=== PATIENT | female | born 1940 | race Caucasian/White ===

== ENCOUNTER 2021-04-18 11:14 | Inpatient (IN) ==
[~2021-04-18 11:14] MED LIST: ALBUMIN HUMAN 25 GM/100 ML BAG IV ONE; DEXAMETHASONE 10 MG/ML VIAL ONE; HYDROmorphone 1 MG/ML SYRINGE ONE; KETAMINE 50 MG/ML Syringe (ANEST) IV ONE; LIDOCAINE HCL/PF 100 MG/5 ML SYRINGE IV ONE; MAGNESIUM SULFATE 2 GM/50 ML BAG IV ONE; ONDANSETRON 4 MG/2 ML VIAL ONE; PROPOFOL 200 MG/20 ML VIAL IV ONE; ROCURONIUM 10 MG/ML ML IV ONE; ROPIVACAINE HCL/PF 20 ML VIAL IJ ONE; SUGAMMADEX SODIUM 200 MG/2 ML VIAL IV ONE; fentaNYL 250 MCG/5 ML VIAL IV ONE
[2021-04-18] MEDS ORDERED: IOPAMIDOL 100 ML BOTTLE IV ONE (11:15)
[2021-04-18] MEDS ORDERED: 0.9 % SODIUM CHLORIDE 1,000 ML IV ONE (11:28)
[2021-04-18] MEDS ORDERED: PANTOPRAZOLE 40 MG VIAL IV ONE (11:28)
[2021-04-18] MEDS ORDERED: ONDANSETRON 4 MG/2 ML VIAL IV ONE (11:28)
--- NOTE | 2021-04-18 11:59 | XRay Report ---
INDICATION: GI BLEED TECHNIQUE: AP portable semiupright chest x-ray COMPARISON: None FINDINGS: Lungs:Lungs are negative. No focal pulmonary parenchymal infiltrate or mass Heart, vascular:No significant cardiomegaly. Pulmonary vascularity is normal. No pulmonary edema or pulmonary congestion Mediastinum, prisca:No mediastinal widening. No hilar mass Pleura:No pleural fluid. No pleural-based mass or calcification Skeletal:Negative. IMPRESSION: 1. Negative AP chest x-ray 2. No interval change since 01/21/2009 Interpreted and Authenticated by: Aniket Gates 04/18/21
[2021-04-18 12:33] LABS: POC INR 1.5 (0.8-1.2)
--- NOTE | 2021-04-18 12:38 | Emergency Department Note ---
GI Bleed HPI General Chief complaint: Bleeding Other Stated complaint: bloody emesis Time Seen by Provider: 04/18/21 11:22 Source: patient, EMS, RN notes reviewed and old records reviewed Mode of arrival: EMS Limitations: no limitations History of Present Illness HPI Narrative: Narrative: complaint: coffee ground emesis and melena Onset (ago): day(s) Consistency: intermittent Severity: moderate Improves with: none Worsens with: bowel movement Context: anticoagulant use Associated symptoms: Reports nausea, vomiting, loss of appetite, malaise, easy bruising and weakness; Denies abdominal pain, epistaxis, fever, chills, headaches, rash, other bleeding, shortness of breath and syncope Treatments Prior to Arrival: none Related Data Home Medications Medication Instructions Recorded Confirmed ibuprofen PO PRN 01/19/21 03/30/21 Previous Rx's Medication Instructions Recorded apixaban 5 mg tablet 5 mg PO BID #60 tab 03/09/21 Allergies Allergy/AdvReac Type Severity Reaction Status Date / Time No Known Drug Allergies Allergy Verified 04/18/21 11:18 Review of Systems ROS ROS Narrative: Narrative: All systems ED: reviewed and negative except as stated. PFS Narrative Patient History Narrative: Narrative: Medical/Surgical/Family History All Active Problems (Updated 04/18/21 @ 12:43 by Samuel Oneill MD) Obesity (Chronic) Psoriasis (Chronic) Seborrheic keratoses (Chronic) Left leg DVT (Acute) Elevated blood pressure reading without diagnosis of hypertension (Acute) Anemia (Acute) Hypokalemia (Acute) Acute upper gastrointestinal hemorrhage (Acute) Influenza vaccination declined (Acute) Pneumococcal vaccination declined (Acute) Medical History Anemia Edema of left lower leg Elevated blood pressure reading without diagnosis of hypertension Hypokalemia Influenza vaccination declined Knee pain Left leg DVT Medicare annual wellness visit, initial Obesity Pneumococcal vaccination declined Psoriasis Seborrheic keratoses Surgical History History of arthroscopy of knee History of hysterectomy (~1979) History of tonsillectomy Family History Other No pertinent family history Social History Smoking Status: Former smoker Alcohol Intake Frequency: does not drink Substance Use: does not use Exam Narrative Narrative: Narrative: General Limitations: no limitations General appearance: Present alert and in no apparent distress Head Head: Present atraumatic and normocephalic Eye Eye: Present normal appearance, PERRL and EOMI; Absent scleral icterus and conjunctival injection ENT ENT: Present normal exam, normal oropharynx and mucous membranes moist Neck Neck: Present trachea midline; Absent lymphadenopathy and thyromegaly Chest Chest: Present symmetric chest wall rise Respiratory Respiratory: Present normal lung sounds bilaterally; Absent respiratory distress, wheezes, stridor, accessory muscle use and prolonged expiratory phase Cardiovascular Cardiovascular: Present normal rhythm, tachycardia and systolic murmur; Absent diastolic murmur Adbominal Abdominal: Present soft; Absent distention, tenderness, guarding, rebound, rigidity, organomegaly and mass Rectal Rectal: Present heme (+) stool and black stool Extremities Extremities: Present normal inspection; Absent normal capillary refill, pedal edema, pretibial edema and calf tenderness Back Back: Present normal inspection and full ROM; Absent CVA tenderness (R), CVA tenderness (L) and spinous process tenderness Neurological Neurological: Present alert and oriented X3 Psychiatric Psychiatric: Present normal affect and normal mood Skin Skin: Present warm (WNL) and dry Course Vital Signs Vital signs: Vital Signs Temperature 97.3 F 04/18/21 11:15 Pulse Rate 120 H 04/18/21 11:15 Respiratory Rate 16 04/18/21 11:15 Blood Pressure 102/89 04/18/21 11:15 Pulse Oximetry (%) 94 04/18/21 11:15 Temperature 97.3 F 04/18/21 11:15 Pulse Rate 101 H 04/18/21 14:20 Respiratory Rate 18 04/18/21 14:20 Blood Pressure 110/68 04/18/21 14:01 Pulse Oximetry (%) 93 04/18/21 14:20 [facility] MDM Narrative Medical decision making narrative: Narrative: Consulted Dr. Phipps who graciously agreed to evaluate patient in the emergency department Dr. Gilbert graciously agreed to admit patient patient was typed and screened for additional blood if needed currently she is 9 and 29 transfusion criteria is white count is 23.2. This may be a shift to the bleed BUN is 42 to a creatinine of 1 I believe this is more digested blood than dehydration patient has received 2 L of IV normal saline and is maintaining blood pressures in the low 100s in the high systolic and heart rate in the low 100. Differential Diagnosis Differential Diagnosis: Upper GI bleed lower GI bleed Medical Records Medical records reviewed: Yes I reviewed the patient's medical records. Lab Data Result diagrams: 04/18/21 12:10 04/18/21 12:10 Labs: Lab Results 04/18/21 04/18/21 04/18/21 Range/Units 12:10 12:10 12:10 WBC 23.2 H (4.5-11.0) K/mcL RBC 3.58 L (3.59-5.38) M/mcL Hgb 9.2 L (11.2-15.7) g/dL Hct 29.4 L (34.1-44.9) % MCV 82.1 (80.0-100.0) fL MCH 25.7 L (26.0-34.0) pg MCHC 31.3 (31.0-36.0) g/dL RDW 14.4 (11.5-14.5) % Plt Count 393 (140-440) K/mcL MPV 9.9 (7.4-10.4) fL Neut % (Auto) 94.7 H (38.0-78.0) % Lymph % (Auto) 1.3 L (15.5-49.0) % [place] % (Auto) 3.9 (1.0-12.0) % Eos % (Auto) 0 (0.0-7.0) % Baso % (Auto) 0.1 (0.0-2.0) % Lymph # (Auto) 0.30 L (1.50-4.80) K/mcL [place] # (Auto) 0.90 (0.10-0.90) K/mcL Eos # (Auto) 0 (0.00-0.70) K/mcL Baso # (Auto) 0.03 (0.00-0.30) K/mcL Absolute Neutrophils 21.97 H (1.80-8.00) K/mcL POC PT 18.0 H (11.9-14.5) sec POC INR 1.5 H (0.8-1.2) APTT 30.8 (20.0-37.0) sec VBG Lactic Acid (0.5-2.0) mmol/L Sodium 139 (133-145) mmol/L Potassium 3.9 (3.3-5.1) mmol/L Chloride 104 (96-108) mmol/L Carbon Dioxide 18 L (22-30) mmol/L Anion Gap 17.0 H (8.0-16.0) BUN 42 H (8-23) mg/dL Creatinine 1.0 (0.6-1.1) mg/dL POC Creatinine 1.0 (0.6-1.2) mg/dL GFR Calculation 52 Glucose 191 H (70-105) mg/dL Calcium 8.8 (8.6-10.4) mg/dL Total Bilirubin 0.3 (0.1-1.0) mg/dL AST 21 (<32) U/L ALT 15 (<40) U/L Alkaline Phosphatase 91 (39-117) U/L Total Protein 6.3 (5.9-8.4) gm/dL Albumin 3.5 (3.2-5.2) gm/dL Globulin 2.8 (2.2-3.7) gm/dL Albumin/Globulin Ratio 1.3 (1.0-2.3) 04/18/21 Range/Units 12:10 WBC (4.5-11.0) K/mcL RBC (3.59-5.38) M/mcL Hgb (11.2-15.7) g/dL Hct (34.1-44.9) % MCV (80.0-100.0) fL MCH (26.0-34.0) pg MCHC (31.0-36.0) g/dL RDW (11.5-14.5) % Plt Count (140-440) K/mcL MPV (7.4-10.4) fL Neut % (Auto) (38.0-78.0) % Lymph % (Auto) (15.5-49.0) % [place] % (Auto) (1.0-12.0) % Eos % (Auto) (0.0-7.0) % Baso % (Auto) (0.0-2.0) % Lymph # (Auto) (1.50-4.80) K/mcL [place] # (Auto) (0.10-0.90) K/mcL Eos # (Auto) (0.00-0.70) K/mcL Baso # (Auto) (0.00-0.30) K/mcL Absolute Neutrophils (1.80-8.00) K/mcL POC PT (11.9-14.5) sec POC INR (0.8-1.2) APTT (20.0-37.0) sec VBG Lactic Acid 3.8 H (0.5-2.0) mmol/L Sodium (133-145) mmol/L Potassium (3.3-5.1) mmol/L Chloride (96-108) mmol/L Carbon Dioxide (22-30) mmol/L Anion Gap (8.0-16.0) BUN (8-23) mg/dL Creatinine (0.6-1.1) mg/dL POC Creatinine (0.6-1.2) mg/dL GFR Calculation Glucose (70-105) mg/dL Calcium (8.6-10.4) mg/dL Total Bilirubin (0.1-1.0) mg/dL AST (<32) U/L ALT (<40) U/L Alkaline Phosphatase (39-117) U/L Total Protein (5.9-8.4) gm/dL Albumin (3.2-5.2) gm/dL Globulin (2.2-3.7) gm/dL Albumin/Globulin Ratio (1.0-2.3) ED POC Tests ED POC Tests: VEE - SARS Antigen Negative Radiology Data Radiology results reviewed: Yes I reviewed the patient's radiology results. Radiology results narrative: Chest x-ray NAD EKG Data EKG #1: EKG attestation: Yes I reviewed and interpreted this EKG. Rate: tachycardia [place]/QRS: left axis deviation Voltage: c/w LVH Ectopy: PVC Interpretation: nonspecific ST-T wave changes Pulse Oximetry Data Pulse Ox %: 94 Interpretation: 94% on room air within normal limits CC TIME Critical Care Time Critical Care Time: Yes Total Critical Care Time: 45 Attestation: Approximately [45] minutes of critical care time was used in order to assess and manage the high probability of imminent or life threatening deterioration to [critical care for GI bleed patient with lowering H&H continued GI bleed elevated BUN with low blood pressure and high heart rate.] which required my highest level of preparedness and interventions with frequent patient assessments. This time is excluding time spent on separately billable procedures. Discharge Plan Patient/Caregiver Discharge Instructions Pt seen by BIOLOGICAL CHEMIST/PA only: No Clinical Impression: Acute upper gastrointestinal hemorrhage Patient Disposition: Xfer As Inpt ([facility]) Follow up with: Brendon Brandon MD [Physician] - Adrian Celestin MD [Primary Care Provider] - Prescriptions: No Action apixaban 5 mg tablet 5 mg PO BID Qty: 60 RF: 2 ibuprofen PO PRNRF: 0
[2021-04-18 13:05] LABS: Basophils # (Auto) 0.03 K/mcL (0.00-0.30); Basophils % (Auto) 0.1 % (0.0-2.0); Eosinophils # (Auto) 0 K/mcL (0.00-0.70); Eosinophils % (Auto) 0 % (0.0-7.0); Hematocrit 29.4 % (34.1-44.9); Hemoglobin 9.2 g/dL (11.2-15.7); Lymphocytes % (Auto) 1.3 % (15.5-49.0); Mean Cell Volume 82.1 fL (80.0-100.0); Mean Corpuscular HGB Conc 31.3 g/dL (31.0-36.0); Mean Platelet Volume 9.9 fL (7.4-10.4); Monocytes % (Auto) 3.9 % (1.0-12.0); Neutrophils % (Auto) 94.7 % (38.0-78.0); Platelet Count 393 K/mcL (140-440); RBC 3.58 M/mcL (3.59-5.38); Red Cell Distribution Width 14.4 % (11.5-14.5); WBC 23.2 K/mcL (4.5-11.0)
[2021-04-18 13:16] LABS: Partial Thromboplastin Time 30.8 sec (20.0-37.0)
--- NOTE | 2021-04-18 13:18 | Cat Scan Report ---
INDICATION: Diffuse Abd pain with GI bleed COMPARISON: None. TECHNIQUE: Axial images were obtained through the abdomen and pelvis. Sagittally and coronally reformatted images. 80 mL Isovue 370 injected intravenously. Oral contrast material was not administered FINDINGS: . There is a small hiatal hernia Lung bases:Negative. No pulmonary parenchymal nodule. No pleural fluid or pericardial fluid Liver:Negative. No focal intrahepatic mass. No focal abnormality. Liver contour is smooth. No evidence for cirrhosis Gallbladder, bilary:There are calcified gallstones. No gallbladder wall thickening or pericholecystic fluid. No dilated bile ducts Spleen:No splenomegaly. Normal enhancement of splenic and portal veins. Pancreas:No pancreatic mass. No peripancreatic abnormality Adrenal glands:Negative Kidneys, ureters, bladder: There are right renal cortical cysts and left renal parapelvic cysts. No solid mass. No hydronephrosis There is no hydroureter. No ureteral stone No bladder calculi or detectable mass Gastrointestinal:Small bowel is fluid-filled and dilated. Cecum and ascending colon are dilated. Small bowel measures approximately 2.5 cm in cross-sectional diameter. The cecum measures approximately 10 cm in diameter. There is a mass at the hepatic flexure of the colon. Mass measures approximately 7.1 x 5.2 x 5.0 cm. It is not clearly separable from the anterior abdominal wall and appearance suggests invasion of the anterior abdominal wall, to the right of midline. This mass is consistent with primary colonic neoplasm and causes obstruction. There are small lymph nodes adjacent to this mass. These are not pathologically enlarged but may be positive. Appendix: The appendix is not well visualized. No evidence for appendicitis Vascular:Abdominal aorta is calcified. There is no abdominal aortic aneurysm. There is calcification of the origins of the celiac trunk and superior mesenteric artery. Lymphatic:No retroperitoneal adenopathy. No pelvic or inguinal adenopathy. Mesentery, peritoneum: There is mild ascitic fluid. This is perihepatic Reproductive:Uterus is not visualized. Uterus may be atrophic or removed. No adnexal mass Musculoskeletal:No lumbar compression fractures. Sacrum and pelvis are negative. No hip fracture. No abdominal wall or inguinal hernia IMPRESSION: 1. 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 This is at the hepatic flexure. 2. Possible direct invasion of the anterior abdominal wall 3. Mechanical obstruction with dilated ascending colon and small bowel 4. Small amount of ascitic fluid 5. Atherosclerotic disease. No abdominal aortic aneurysm 6. Cholelithiasis 7. Benign renal cysts The exam was performed using radiation dose optimization techniques including, but not limited to, automated exposure control, adjustment of the mA and/or kV according to patient size and use of iterative reconstruction technique. Interpreted and Authenticated by: Aniket Gates 04/18/21
[2021-04-18] MEDS ORDERED: ACETAMINOPHEN 650 MG/65 ML BAG IV ONE (13:22)
[2021-04-18 13:38] LABS: ALT/SGPT 15 U/L (<40); AST/SGOT 21 U/L (<32); Albumin 3.5 gm/dL (3.2-5.2); Albumin/Globulin Ratio 1.3 (1.0-2.3); Alkaline Phosphatase 91 U/L (39-117); Bilirubin,Total 0.3 mg/dL (0.1-1.0); Blood Urea Nitrogen 42 mg/dL (8-23); Calcium 8.8 mg/dL (8.6-10.4); Carbon Dioxide 18 mmol/L (22-30); Chloride 104 mmol/L (96-108); Globulin 2.8 gm/dL (2.2-3.7); Glomerular Filtration Rate 52; Glucose 191 mg/dL (70-105)
[2021-04-18] MEDS ORDERED: 0.9 % SODIUM CHLORIDE 1,000 ML IV SCH (14:15)
--- NOTE | 2021-04-18 14:17 | Internal Med History&Physical ---
HPI History of Present Illness Patient information: Note initiated : 04/18/21 at 2:10 pm Service Date, if different from initiated Date: [] Patient: Hector Chadwick a 80 y/o F admitted on for bloody emesis. Chief Complaint: [] History of present illness: Ms. Chadwick is a 80 year old F Presents the ED with hematemesis. Patient has a history of DVT on Eliquis her old home medication does list ibuprofen but she says she does not take that. She woke up yesterday feeling fine and then in the afternoon she started having a little bit of an upset stomach and the pain worsened into the night and it was a sharp and burning pain nonradiating. She had an episode of nausea vomiting last night. She could not sleep very well because of the pain. This morning she had another episode nausea vomiting described as dark coffee- ground emesis. And then she had a large episode of diarrhea of dark stool. She was significantly lightheaded and when she got up to walk she almost passed out and could not walk very far because of weakness as well. Patient denies chest pain or shortness of breath In the ED she had a hemoglobin of 9 and it was 11 few weeks prior. Blood pressures have been in the 90s to low 100s she did have a systolic of 79 at one reading. She is also tachycardic 120s one-point Dr. Phipps was contacted to perform EGD. Review of Systems: Pertinent positives as above. Denies headache/fever/chills/chest pain/cough/dyspnea. Otherwise see above. PFSH PFSH All Active Problems (Updated 04/18/21 @ 12:43 by Samuel Oneill MD) Obesity (Chronic) Psoriasis (Chronic) Seborrheic keratoses (Chronic) Left leg DVT (Acute) Elevated blood pressure reading without diagnosis of hypertension (Acute) Anemia (Acute) Hypokalemia (Acute) Acute upper gastrointestinal hemorrhage (Acute) Influenza vaccination declined (Acute) Pneumococcal vaccination declined (Acute) Medical History Anemia Edema of left lower leg Elevated blood pressure reading without diagnosis of hypertension Hypokalemia Influenza vaccination declined Knee pain Left leg DVT Medicare annual wellness visit, initial Obesity Pneumococcal vaccination declined Psoriasis Seborrheic keratoses Surgical History History of arthroscopy of knee History of hysterectomy (~1979) History of tonsillectomy Family History Other No pertinent family history Social History marital status: smoking status: Former smoker quit date: 07/15/99 pack-years: 40 alcohol intake frequency: does not drink substance use type: does not use MEDS/ALLERGIES Home Medications and Allergies Home Medications Medication Instructions Recorded Confirmed Type ibuprofen PO PRN 01/19/21 03/30/21 History apixaban 5 mg tablet 5 mg PO BID #60 tab 03/09/21 03/30/21 Rx Allergies Allergy/AdvReac Type Severity Reaction Status Date / Time No Known Drug Allergies Allergy Verified 04/18/21 11:18 EXAM Constitutional Vitals: Temp Pulse Resp BP Pulse Ox 97.3 F 106 H 20 98/54 93 04/18/21 11:15 04/18/21 12:31 04/18/21 12:31 04/18/21 12:31 04/18/21 12:31 Exam: General: Alert, Awake, No acute Distress Eyes/N/T: EOMI, PERRL, Head/Neck: neck supple, normocephalic atraumatic CV: Mildly tacky but regular, No murmurs, normal s1/s2 Pulm: Clear b/l, no wheezing/rhonchi/rales Abd: soft, nontender, +BS x4 Ext: no clubbing/cyanosis/edema Neuro: Alert, no focal deficits, moves all extremities, CN 2-12 grossly intact, symmetrical strength b/l upper/lower, sensations intact b/l upper/lower Skin: warm/dry, pale DATA Data Completed and Pending Labs: Labs from last 24 hours 04/18/21 04/18/21 04/18/21 12:10 12:10 12:10 WBC RBC Hgb Hct MCV MCH MCHC RDW Plt Count MPV Neut % (Auto) Lymph % (Auto) [place] % (Auto) Eos % (Auto) Baso % (Auto) Lymph # (Auto) [place] # (Auto) Eos # (Auto) Baso # (Auto) Absolute Neutrophils POC PT 18.0 H POC INR 1.5 H APTT 30.8 VBG Lactic Acid 3.8 H Sodium 139 Potassium 3.9 Chloride 104 Carbon Dioxide 18 L Anion Gap 17.0 H BUN 42 H Creatinine 1.0 POC Creatinine 1.0 GFR Calculation 52 Glucose 191 H Calcium 8.8 Total Bilirubin 0.3 AST 21 ALT 15 Alkaline Phosphatase 91 Total Protein 6.3 Albumin 3.5 Globulin 2.8 Albumin/Globulin Ratio 1.3 04/18/21 12:10 WBC 23.2 H RBC 3.58 L Hgb 9.2 L Hct 29.4 L MCV 82.1 MCH 25.7 L MCHC 31.3 RDW 14.4 Plt Count 393 MPV 9.9 Neut % (Auto) 94.7 H Lymph % (Auto) 1.3 L [place] % (Auto) 3.9 Eos % (Auto) 0 Baso % (Auto) 0.1 Lymph # (Auto) 0.30 L [place] # (Auto) 0.90 Eos # (Auto) 0 Baso # (Auto) 0.03 Absolute Neutrophils 21.97 H POC PT POC INR APTT VBG Lactic Acid Sodium Potassium Chloride Carbon Dioxide Anion Gap BUN Creatinine POC Creatinine GFR Calculation Glucose Calcium Total Bilirubin AST ALT Alkaline Phosphatase Total Protein Albumin Globulin Albumin/Globulin Ratio A/P Narrative A/P Narrative: A: *Upper GI Bleed: *Symptomatic acute on chronic anemia: *h/o DVT: on eliquis *Leukocytosis: Likely reactive * P: -protonix gtt -IVF, NPO -f/u H&H for likely transfusion -Dr. Brandon for GI -monitor vitals closely and airway if further hematemesis -pt/ot -ppx: SCD (eliquis held) full code Time Spent With Patient Time: Total time spent is greater than 50% in coordination of care (as documented) at patient's floor/unit and/or counseling patient:
[2021-04-18] MEDS ORDERED: PANTOPRAZOLE 80 MG in 0.9 % SODIUM CHLORIDE 100 ML IV SCH (14:30)
[2021-04-18] MEDS ORDERED: POTASSIUM CHLORIDE 40 MEQ in DEXTROSE 5% IN WATER 500 ML IV PRN (14:50)
[2021-04-18] MEDS ORDERED: PROMETHAZINE 25 MG/ML VIAL IV PRN (14:50)
[2021-04-18] MEDS ORDERED: MAGNESIUM SULFATE 2 GM/50 ML BAG IV PRN (14:50)
[2021-04-18] MEDS ORDERED: ONDANSETRON 4 MG/2 ML VIAL IV PRN (14:50)
[2021-04-18] MEDS ORDERED: METOCLOPRAMIDE 10 MG/2 ML VIAL IV PRN (14:50)
[2021-04-18] MEDS ORDERED: POTASSIUM CHLORIDE 20 MEQ TABLET PO PRN ×2 (14:50)
[2021-04-18] MEDS: 0.9 % SODIUM CHLORIDE 1,000 ML IV SCH (15:03)
[2021-04-18] MEDS ORDERED: KETAMINE 50 MG/ML ML IV PRN (15:44)
[2021-04-18] MEDS ORDERED: MIDAZOLAM 2 MG/2 ML VIAL IV SCH (15:45)
[2021-04-18] MEDS ORDERED: PROPOFOL 200 MG/20 ML VIAL IV SCH (15:45)
[2021-04-18] MEDS ORDERED: MIDAZOLAM 2 MG/2 ML VIAL ONE (16:10)
[2021-04-18] MEDS ORDERED: PROPOFOL 200 MG/20 ML VIAL IV ONE (16:11)
[2021-04-18] MEDS ORDERED: EPINEPHrine 1 MG/ML AMPUL IJ ONE (17:03)
--- NOTE | 2021-04-18 17:24 | Discharge Summary ---
Discharge Provider Provider Patient information: Note initiated : 04/18/21 at 5:21 pm Service Date, if different from initiated Date: [] Patient: Hector Chadwick a 80 y/o F admitted on 04/18/21 for bloody emesis. Chief Complaint: [] Date of admission: 04/18/21 14:39 Primary care physician: Adrian Celestin MD Consults: 04/18/21 Consult to Physician [CONS] Stat Comment: Consulting Provider: Prabhakar Gilbert Reason For Exam: Physician to Consult Consult to Physician [CONS] Stat Comment: Consulting Provider: Brendon Brandon Reason For Exam: Physician to Consult Discharge Meds Discharge Medications Home Medications apixaban 5 mg tablet 5 mg PO BID #60 tab 03/09/21 [Rx Confirmed 04/18/21 Last Taken 04/17/21 5mg yesterday @ HS] pantoprazole 40 mg PO QDAY #60 tab 04/18/21 [Rx Last Taken Unknown] COURSE Hospital Course Hospital course: History of present illness: Ms. Chadwick is a 80 year old F Presents the ED with hematemesis. Patient has a history of DVT on Eliquis her old home medication does list ibuprofen but she says she does not take that. She woke up yesterday feeling fine and then in the afternoon she started having a little bit of an upset stomach and the pain worsened into the night and it was a sharp and burning pain nonradiating. She had an episode of nausea vomiting last night. She could not sleep very well because of the pain. This morning she had another episode nausea vomiting described as dark coffee- ground emesis. And then she had a large episode of diarrhea of dark stool. She was significantly lightheaded and when she got up to walk she almost passed out and could not walk very far because of weakness as well. Patient denies chest pain or shortness of breath In the ED she had a hemoglobin of 9 and it was 11 few weeks prior. Blood pressures have been in the 90s to low 100s she did have a systolic of 79 at one reading. She is also tachycardic 120s one-point Dr. Phipps was contacted to perform EGD. EGD performed found a small hiatal hernia and several Darrion lesions. Recommendations were for lifelong PPI. A/P Narrative: A: *Upper GI Bleed: 2/2 several Darrion's lesions *Symptomatic acute on chronic anemia: *h/o DVT: on eliquis *Leukocytosis: Likely reactive Discharge diagnosis: Upper GI bleed from Darrion's lesions symptomatic anemia Secondary discharge diagnosis: Of DVT Time Spent with Patient Time attestation: Total time spent providing and/or coordinating discharge services: Time spent: Greater than 30 minutes EXAM Constitutional Vitals: Temp Pulse Resp BP Pulse Ox 98.5 F 89 19 96/55 95 04/18/21 14:59 04/18/21 17:00 04/18/21 17:00 04/18/21 17:00 04/18/21 17:00 Discharge Data Data Completed and Pending Labs on day of discharge: Labs from last 24 hours 04/18/21 04/18/21 04/18/21 12:10 12:10 12:10 WBC RBC Hgb Hct MCV MCH MCHC RDW Plt Count MPV Neut % (Auto) Lymph % (Auto) [place] % (Auto) Eos % (Auto) Baso % (Auto) Lymph # (Auto) [place] # (Auto) Eos # (Auto) Baso # (Auto) Absolute Neutrophils POC PT 18.0 H POC INR 1.5 H APTT 30.8 VBG Lactic Acid 3.8 H Sodium 139 Potassium 3.9 Chloride 104 Carbon Dioxide 18 L Anion Gap 17.0 H BUN 42 H Creatinine 1.0 POC Creatinine 1.0 GFR Calculation 52 Glucose 191 H Calcium 8.8 Total Bilirubin 0.3 AST 21 ALT 15 Alkaline Phosphatase 91 Total Protein 6.3 Albumin 3.5 Globulin 2.8 Albumin/Globulin Ratio 1.3 04/18/21 12:10 WBC 23.2 H RBC 3.58 L Hgb 9.2 L Hct 29.4 L MCV 82.1 MCH 25.7 L MCHC 31.3 RDW 14.4 Plt Count 393 MPV 9.9 Neut % (Auto) 94.7 H Lymph % (Auto) 1.3 L [place] % (Auto) 3.9 Eos % (Auto) 0 Baso % (Auto) 0.1 Lymph # (Auto) 0.30 L [place] # (Auto) 0.90 Eos # (Auto) 0 Baso # (Auto) 0.03 Absolute Neutrophils 21.97 H POC PT POC INR APTT VBG Lactic Acid Sodium Potassium Chloride Carbon Dioxide Anion Gap BUN Creatinine POC Creatinine GFR Calculation Glucose Calcium Total Bilirubin AST ALT Alkaline Phosphatase Total Protein Albumin Globulin Albumin/Globulin Ratio Discharge Plan Patient/Caregiver Discharge Instructions Activity: increase activity as tolerated Diet: Regular Diet Activity Restrictions/Additional Instructions: Hold Eliquis for another 4 days before restarting. Prescriptions: New pantoprazole 40 mg tablet,delayed release (DR/EC) 40 mg PO QDAY Qty: 60 RF: 0 Continued apixaban 5 mg tablet 5 mg PO BID Qty: 60 RF: 2 Follow Up Plan Follow up with: Brendon Brandon MD [Physician] - Adrian Celestin MD [Primary Care Provider] - Patient Disposition: Home, Self-Care Prognosis: Fair Overall status at discharge: patient is progressing back to baseline
[2021-04-18] MEDS: 0.9 % SODIUM CHLORIDE 250 ML IV SCH (17:53)
[2021-04-18 18:57] LABS: Hematocrit 28.7 % (34.1-44.9); Hemoglobin 8.8 g/dL (11.2-15.7)
[2021-04-18] MEDS: 0.9 % SODIUM CHLORIDE 10 ML SYRINGE IV SCH (21:08)
[2021-04-18] MEDS ORDERED: 0.9 % SODIUM CHLORIDE 250 ML IV SCH (22:15)
[2021-04-19] MEDS: ACETAMINOPHEN 325 MG TABLET PO PRN ×3 (00:29→21:46)
[2021-04-19] MEDS: PANTOPRAZOLE 80 MG in 0.9 % SODIUM CHLORIDE 100 ML IV SCH ×3 (01:05→21:46)
[2021-04-19] MEDS: 0.9 % SODIUM CHLORIDE 1,000 ML IV SCH (07:00)
[2021-04-19] MEDS: 0.9 % SODIUM CHLORIDE 10 ML SYRINGE IV SCH ×3 (07:01→21:00)
[2021-04-19 07:06] LABS: Basophils # (Auto) 0.02 K/mcL (0.00-0.30); Basophils % (Auto) 0.3 % (0.0-2.0); Eosinophils # (Auto) 0 K/mcL (0.00-0.70); Eosinophils % (Auto) 0 % (0.0-7.0); Hemoglobin 9.1 g/dL (11.2-15.7); Lymphocytes # (Auto) 0.79 K/mcL (1.50-4.80); Lymphocytes % (Auto) 9.9 % (15.5-49.0); Mean Cell Volume 84.7 fL (80.0-100.0); Mean Corpuscular HGB Conc 30.3 g/dL (31.0-36.0); Mean Platelet Volume 10.2 fL (7.4-10.4); Monocytes # (Auto) 0.99 K/mcL (0.10-0.90); Monocytes % (Auto) 12.4 % (1.0-12.0); Neutrophils % (Auto) 77.4 % (38.0-78.0); Platelet Count 303 K/mcL (140-440); RBC 3.54 M/mcL (3.59-5.38)
--- NOTE | 2021-04-19 07:50 | Internal Med Progress Note ---
SUBJECTIVE Subjective Patient information: Note initiated : 04/19/21 at 7:47 am Service Date, if different from initiated Date: [] Patient: Hector Chadwick a 80 y/o F admitted on 04/18/21 for bloody emesis. Chief Complaint: [] Interval history: History of present illness: Ms. Chadwick is a 80 year old F Presents the ED with hematemesis. Patient has a history of DVT on Eliquis her old home medication does list ibuprofen but she says she does not take that. She woke up yesterday feeling fine and then in the afternoon she started having a little bit of an upset stomach and the pain worsened into the night and it was a sharp and burning pain nonradiating. She had an episode of nausea vomiting last night. She could not sleep very well because of the pain. This morning she had another episode nausea vomiting described as dark coffee- ground emesis. And then she had a large episode of diarrhea of dark stool. She was significantly lightheaded and when she got up to walk she almost passed out and could not walk very far because of weakness as well. Patient denies chest pain or shortness of breath In the ED she had a hemoglobin of 9 and it was 11 few weeks prior. Blood pressures have been in the 90s to low 100s she did have a systolic of 79 at one reading. She is also tachycardic 120s one-point Dr. Phipps was contacted to perform EGD. EGD performed found a small hiatal hernia and several Darrion lesions. Recommendations were for lifelong PPI. 04/19 Patient still feels quite weak but much better than when she came in. Did have some dark liquid stool last night likely residual. Review of Systems: denies headache/fever/chills/nausea/vomiting/chest or abdominal pain/cough/dyspnea/diarrhea. Otherwise see above. Constitutional Vitals: Vital Signs Temp Pulse Resp BP Pulse Ox 97.7 F 83 16 133/77 95 04/19/21 04:01 04/18/21 17:10 04/19/21 06:43 04/19/21 06:00 04/19/21 06:43 Period Temp Pulse Resp BP Sys/St Pulse Ox Last 24 Hr 97.3 F-98.7 F 61-133 14-30 79-138/49-116 84-97 Intake and Output 04/18/21 04/19/21 04/19/21 21:59 05:59 13:59 Intake Total 165 1427 Output Total 400 901 Balance -235 526 Weight 81.919 kg Intake & Output: Intake & Output 04/18/21 04/19/21 04/19/21 21:59 05:59 13:59 Intake Total 165 1427 Output Total 400 901 Balance -235 526 Weight 81.919 kg Intake: IV 65 1102 Sodium Chloride 0.9% 1,000 ml @ 1000 100 mls/hr IV .Q10H [facility] Rx#: [id number] Sodium Chloride 0.9% 250 ml @ 2 20 mls/hr IV .[id number] [facility] Rx#: [id number] Protonix 80 mg In Sodium 100 Chloride 0.9% 100 ml @ 8 MG/HR 10 mls/hr IV Q10H [facility] Rx#: [id number] Blood Product 325 IV - Manual Only 100 Output: Void Amount 300 # of times incontinent of urine 1 Urine/Stool Mix 400 600 Other: Urine Appearance Clear Urine Color Straw Urine Odor Strong Stool Size Large Large Stool Color Black Black Stool Consistency Liquid Liquid # of times incontinent of 1 Bowels # Emeses 0 Exam: General: Alert, Awake, No acute Distress Eyes/N/T: EOMI, , Head/Neck: neck supple, CV: Mildly tacky but regular, No murmurs, Pulm: Clear b/l, no wheezing/rhonchi/rales Abd: soft, nontender, +BS x4 Ext: no clubbing/cyanosis/edema Neuro: Alert, no focal deficits, moves all extremities, Skin: warm/dry, OBJ DATA Labs CBC & Chem 7: 04/19/21 05:19 04/19/21 05:18 Labs: Abnormal Lab Results 04/19/21 04/18/21 04/18/21 05:19 18:02 12:10 WBC RBC 3.54 L Hgb 9.1 L 8.8 L Hct 30.0 L 28.7 L MCH 25.7 L MCHC 30.3 L RDW 15.0 H Neut % (Auto) Lymph % (Auto) 9.9 L [place] % (Auto) 12.4 H Lymph # (Auto) 0.79 L [place] # (Auto) 0.99 H Absolute Neutrophils POC PT POC INR VBG Lactic Acid 3.8 H Carbon Dioxide Anion Gap BUN Glucose 04/18/21 04/18/21 04/18/21 12:10 12:10 12:10 WBC 23.2 H RBC 3.58 L Hgb 9.2 L Hct 29.4 L MCH 25.7 L MCHC RDW Neut % (Auto) 94.7 H Lymph % (Auto) 1.3 L [place] % (Auto) Lymph # (Auto) 0.30 L [place] # (Auto) Absolute Neutrophils 21.97 H POC PT 18.0 H POC INR 1.5 H VBG Lactic Acid Carbon Dioxide 18 L Anion Gap 17.0 H BUN 42 H Glucose 191 H Meds: Medications Acetaminophen (Acetaminophen 325 Mg Tablet) 650 mg PO Q6HP PRN; Protocol PRN Reason: Per Pain Protocol/Fever > 101 Last Admin: 04/19/21 00:29 Dose: 650 mg Documented by: Sodium Chloride (Sodium Chloride 0.9%) 1,000 mls @ 100 mls/hr IV .Q10H [facility] Stop: 04/19/21 10:14 Last Admin: 04/19/21 07:00 Dose: 100 mls/hr Documented by: Pantoprazole Sodium 80 mg/ (Sodium Chloride) 100 mls @ 10 mls/hr IV Q10H [facility] Last Admin: 04/19/21 01:05 Dose: 8 mg/hr, 10 mls/hr Documented by: Potassium Chloride 40 meq/ (Dextrose) 520 mls @ 130 mls/hr IV UD PRN PRN Reason: Potassium < 3 Magnesium Sulfate (Magnesium Sulfate) 2 gm in 50 mls @ 50 mls/hr IV UD PRN PRN Reason: Magnesium </= 1.6 Sodium Chloride (Sodium Chloride 0.9%) 250 mls @ 20 mls/hr IV .[id number] [facility] Last Admin: 04/18/21 17:53 Dose: 20 mls/hr Documented by: Sodium Chloride (Sodium Chloride 0.9%) 250 mls @ 20 mls/hr IV .[id number] [facility] Stop: 04/19/21 10:44 Last Infusion: 04/18/21 23:30 Dose: 0 mls/hr Documented by: Metoclopramide HCl (Metoclopramide 10 Mg/2 Ml Vial) 10 mg IV Q6HP PRN PRN Reason: Nausea And Vomiting Ondansetron HCl (Ondansetron 4 Mg/2 Ml Vial) 4 mg IV Q4HP PRN PRN Reason: Nausea And Vomiting Potassium Chloride (Potassium Chloride 20 Meq Tablet) 40 meq PO UD PRN PRN Reason: Potssium is 3-3.5 Potassium Chloride (Potassium Chloride 20 Meq Tablet) 40 meq PO UD PRN PRN Reason: Potassium < 3 Promethazine HCl (Promethazine 25 Mg/Ml Vial) 12.5 mg IV Q6HP PRN PRN Reason: Nausea And Vomiting Sodium Chloride (0.9 % Sodium Chloride 10 Ml Syringe) 10 ml IV Q8 [facility] Last Admin: 04/19/21 07:01 Dose: Not Given Documented by: A/P Narrative A/P Narrative: A: *Upper GI Bleed: 2/2 several Darrion's lesions *Symptomatic acute on chronic anemia: -s/p 1prb early this morning *h/o DVT early January: on eliquis *Leukocytosis: reactive, resolved *mild met acidosis: 2/2 bicarb loss from gi P: -protonix bid for 30 days then daily -Dr. Brandon for GI -pt/ot -ppx: SCD (eliquis restart in a few days) full code Time Spent With Patient Time: Total time spent is greater than 50% in coordination of care (as documented) at patient's floor/unit and/or counseling patient: QUALITY VTE Deep Vein Thrombosis/Pulmonary Embolism Present on Admission: No
[2021-04-19 08:18] LABS: ALT/SGPT 16 U/L (<40); AST/SGOT 24 U/L (<32); Albumin/Globulin Ratio 1.3 (1.0-2.3); Alkaline Phosphatase 76 U/L (39-117); Bilirubin,Direct < 0.2 mg/dL (0-0.3); Bilirubin,Total 0.4 mg/dL (0.1-1.0); Blood Urea Nitrogen 45 mg/dL (8-23); Calcium 8.3 mg/dL (8.6-10.4); Carbon Dioxide 18 mmol/L (22-30); Chloride 112 mmol/L (96-108); Globulin 2.4 gm/dL (2.2-3.7); Glomerular Filtration Rate 80; Glucose 119 mg/dL (70-105); Lactate Dehydrogenase 275 U/L (135-225); Phosphorous 3.8 mg/dL (2.5-4.5); Triglycerides 110 mg/dL (<150); Uric Acid 5.1 mg/dL (2.5-8.0)
--- NOTE | 2021-04-19 09:34 | EGD Procedure Note ---
EGD Procedure Notes Procedure Information Patient information: Note initiated : 04/19/21 at 9:32 am Service Date: 04/18/21 Patient: Hector Chadwick 80 y/o F admitted on 04/18/21 for bloody emesis. Pre-op diagnosis general: upper GI bleed. Post-Op Diagnosis general: Hiatal hernia with bleeding Darrion's ulcers. Procedure: EGD with control of bleed Procedure Narrative: The procedure, alternatives and risks were discussed with the patient and the patient's questions were answered. With endoscopist-administered intravenous sedation, the Olympus video endoscope was introduced into the esophagus. The esophagus, stomach, and duodenum were examined sequentially. There is no esophagitis. A hiatal hernia was seen. Bleeding Darrion's ulcers were seen. These were injected with epinephrine and cauterized with heater probe. There is no visible vessel. The scope was withdrawn. Assessment: Hiatal hernia with bleeding Darrion's ulcers.
[2021-04-19] MEDS: SODIUM BICARBONATE 650 MG TABLET PO SCH ×3 (10:38→21:46)
[2021-04-19] MEDS: 0.9 % SODIUM CHLORIDE 250 ML IV SCH ×2 (10:38→17:34)
--- NOTE | 2021-04-19 18:57 | EKG ---
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
[2021-04-20] MEDS: 0.9 % SODIUM CHLORIDE 10 ML SYRINGE IV SCH ×2 (06:10→14:22)
[2021-04-20] MEDS: PANTOPRAZOLE 80 MG in 0.9 % SODIUM CHLORIDE 100 ML IV SCH (08:25)
[2021-04-20] MEDS: 0.9 % SODIUM CHLORIDE 250 ML IV SCH (08:26)
[2021-04-20] MEDS ORDERED: SIMETHICONE 80 MG TAB.CHEW CHEWED PRN (08:47)
[2021-04-20 09:48] LABS: Basophils # (Auto) 0.02 K/mcL (0.00-0.30); Basophils % (Auto) 0.4 % (0.0-2.0); Eosinophils % (Auto) 1.9 % (0.0-7.0); Hematocrit 26.9 % (34.1-44.9); Lymphocytes # (Auto) 0.81 K/mcL (1.50-4.80); Lymphocytes % (Auto) 15.3 % (15.5-49.0); Mean Cell Volume 88.2 fL (80.0-100.0); Mean Corpuscular HGB Conc 29.7 g/dL (31.0-36.0); Mean Platelet Volume 10.3 fL (7.4-10.4); Monocytes # (Auto) 0.53 K/mcL (0.10-0.90); Neutrophils % (Auto) 72.4 % (38.0-78.0); Platelet Count 206 K/mcL (140-440); RBC 3.05 M/mcL (3.59-5.38); Red Cell Distribution Width 15.3 % (11.5-14.5); WBC 5.3 K/mcL (4.5-11.0)
--- NOTE | 2021-04-20 10:22 | Internal Med Progress Note ---
SUBJECTIVE Subjective Patient information: Note initiated : 04/20/21 at 10:12 am Service Date, if different from initiated Date: [] Patient: Hector Chadwick a 80 y/o F admitted on 04/18/21 for bloody emesis. Chief Complaint: [GI bleeding] Interval history: History of present illness: Ms. Chadwick is a 80 year old F Presents the ED with hematemesis. Patient has a history of DVT on Eliquis her old home medication does list ibuprofen but she says she does not take that. She woke up yesterday feeling fine and then in the afternoon she started having a little bit of an upset stomach and the pain worsened into the night and it was a sharp and burning pain nonradiating. She had an episode of nausea vomiting last night. She could not sleep very well because of the pain. This morning she had another episode nausea vomiting described as dark coffee-g round emesis. And then she had a large episode of diarrhea of dark stool. She was significantly lightheaded and when she got up to walk she almost passed out and could not walk very far because of weakness as well. Patient denies chest pain or shortness of breath In the ED she had a hemoglobin of 9 and it was 11 few weeks prior. Blood pressures have been in the 90s to low 100s she did have a systolic of 79 at one reading. She is also tachycardic 120s one-point Dr. Phipps was contacted to perform EGD. EGD performed found a small hiatal hernia and several Darrion lesions. Recommendations were for lifelong PPI. 04/19 Patient still feels quite weak but much better than when she came in. Did have some dark liquid stool last night likely residual. 04/20: Continued to have black stools. Denies nausea vomiting or hematemesis. H/H: 9.1/30.0-->8.0/26.9. c/o intermittent, crampy epigastric and RUQ abdominal pain, 5/10. c/o headache. Constitutional Vitals: Vital Signs Temp Pulse Resp BP Pulse Ox 36.3 C 92 H 17 130/67 98 04/20/21 04:01 04/19/21 01:45 04/20/21 06:00 04/20/21 06:00 04/20/21 06:00 Period Temp Pulse Resp BP Sys/St Pulse Ox Last 24 Hr 36.3 C-36.7 C 14-21 115-151/55-78 94-98 Intake and Output 04/19/21 04/20/21 04/20/21 21:59 05:59 13:59 Intake Total 2380 300 350 Output Total 1300 500 200 Balance 1080 -200 150 Weight 83.688 kg Intake & Output: Intake & Output 04/19/21 04/20/21 04/20/21 21:59 05:59 13:59 Intake Total 2380 300 350 Output Total 1300 500 200 Balance 1080 -200 150 Weight 83.688 kg Intake: IV 1100 350 Sodium Chloride 0.9% 1,000 ml @ 1000 100 mls/hr IV .Q10H [facility] Rx#: [id number] Sodium Chloride 0.9% 250 ml @ 250 20 mls/hr IV .[id number] [facility] Rx#: [id number] Protonix 80 mg In Sodium 100 100 Chloride 0.9% 100 ml @ 8 MG/HR 10 mls/hr IV Q10H [facility] Rx#: [id number] Oral 1280 300 Output: Void Amount 300 Urine/Stool Mix 1300 200 200 Other: Meal Dinner Percent of Meal Consumed 50% Feeding Ability Independent Urine Appearance Clear Urine Color Dark Yellow Urine Odor Normal Stool Size Copious Moderate Stool Color Brown Brown Brown Stool Consistency Liquid Liquid Liquid Watery General appearance: cooperative and no acute distress Head Head exam: Present atraumatic and normocephalic Eye Eye exam: Present EOMI and PERRL ENT ENT exam: Present mucous membranes moist, normal exam and normal external ear exam Neck Neck exam: Present normal inspection; Absent lymphadenopathy, tenderness and thyromegaly Respiratory Respiratory exam: Absent accessory muscle use, respiratory distress and wheezes Cardiovascular Cardiovascular exam: Present normal rate and rhythm; Absent JVD GI/Abdominal GI/Abdominal exam: Present normal bowel sounds and soft; Absent organomegaly and tenderness Extremities Exam Extremities exam: Present full ROM, normal capillary refill and normal inspection; Absent tenderness Neurological Exam Neurological exam: Present alert, CN II-XII intact and oriented X3; Absent motor sensory deficit Psychiatric Psychiatric exam: Present normal affect and normal mood; Absent anxious and depressed Skin Skin exam: Present dry and intact OBJ DATA Labs CBC & Chem 7: 04/20/21 05:48 04/19/21 05:18 Labs: Abnormal Lab Results 04/20/21 04/19/21 04/19/21 05:48 05:19 05:18 WBC RBC 3.05 L 3.54 L Hgb 8.0 L 9.1 L Hct 26.9 L 30.0 L MCH 25.7 L MCHC 29.7 L 30.3 L RDW 15.3 H 15.0 H Neut % (Auto) Lymph % (Auto) 15.3 L 9.9 L [place] % (Auto) 12.4 H Lymph # (Auto) 0.81 L 0.79 L [place] # (Auto) 0.99 H Absolute Neutrophils POC PT POC INR VBG Lactic Acid Chloride 112 H Carbon Dioxide 18 L Anion Gap BUN 45 H Glucose 119 H Calcium 8.3 L Lactate Dehydrogenase 275 H Total Protein 5.4 L Albumin 3.0 L 04/18/21 04/18/21 04/18/21 18:02 12:10 12:10 WBC RBC Hgb 8.8 L Hct 28.7 L MCH MCHC RDW Neut % (Auto) Lymph % (Auto) [place] % (Auto) Lymph # (Auto) [place] # (Auto) Absolute Neutrophils POC PT POC INR VBG Lactic Acid 3.8 H Chloride Carbon Dioxide 18 L Anion Gap 17.0 H BUN 42 H Glucose 191 H Calcium Lactate Dehydrogenase Total Protein Albumin 04/18/21 04/18/21 12:10 12:10 WBC 23.2 H RBC 3.58 L Hgb 9.2 L Hct 29.4 L MCH 25.7 L MCHC RDW Neut % (Auto) 94.7 H Lymph % (Auto) 1.3 L [place] % (Auto) Lymph # (Auto) 0.30 L [place] # (Auto) Absolute Neutrophils 21.97 H POC PT 18.0 H POC INR 1.5 H VBG Lactic Acid Chloride Carbon Dioxide Anion Gap BUN Glucose Calcium Lactate Dehydrogenase Total Protein Albumin Meds: Medications Acetaminophen (Acetaminophen 325 Mg Tablet) 650 mg PO Q6HP PRN; Protocol PRN Reason: Per Pain Protocol/Fever > 101 Last Admin: 04/19/21 21:46 Dose: 650 mg Documented by: Pantoprazole Sodium 80 mg/ (Sodium Chloride) 100 mls @ 10 mls/hr IV Q10H [facility] Last Admin: 04/20/21 08:25 Dose: 8 mg/hr, 10 mls/hr Documented by: Potassium Chloride 40 meq/ (Dextrose) 520 mls @ 130 mls/hr IV UD PRN PRN Reason: Potassium < 3 Magnesium Sulfate (Magnesium Sulfate) 2 gm in 50 mls @ 50 mls/hr IV UD PRN PRN Reason: Magnesium </= 1.6 Sodium Chloride (Sodium Chloride 0.9%) 250 mls @ 20 mls/hr IV .[id number] [facility] Last Admin: 04/20/21 08:26 Dose: 20 mls/hr Documented by: Metoclopramide HCl (Metoclopramide 10 Mg/2 Ml Vial) 10 mg IV Q6HP PRN PRN Reason: Nausea And Vomiting Ondansetron HCl (Ondansetron 4 Mg/2 Ml Vial) 4 mg IV Q4HP PRN PRN Reason: Nausea And Vomiting Potassium Chloride (Potassium Chloride 20 Meq Tablet) 40 meq PO UD PRN PRN Reason: Potssium is 3-3.5 Last Admin: 04/19/21 10:38 Dose: 40 meq Documented by: Potassium Chloride (Potassium Chloride 20 Meq Tablet) 40 meq PO UD PRN PRN Reason: Potassium < 3 Promethazine HCl (Promethazine 25 Mg/Ml Vial) 12.5 mg IV Q6HP PRN PRN Reason: Nausea And Vomiting Simethicone (Simethicone 80 Mg Tab.Chew) 80 mg CHEWED QIDP PRN PRN Reason: Dyspepsia Last Admin: 04/20/21 09:13 Dose: 80 mg Documented by: Sodium Chloride (0.9 % Sodium Chloride 10 Ml Syringe) 10 ml IV Q8 [facility] Last Admin: 04/20/21 06:10 Dose: 10 ml Documented by: A/P Assessment and plan (1) Left leg DVT: Status: Acute Qualifiers: Affected thrombotic vein of extremity: other lower extremity vein Chronicity: acute Qualified Code(s): I82.492 - Acute embolism and thrombosis of other specified deep vein of left lower extremity (2) Anemia: Status: Acute Qualifiers: Anemia type: unspecified type Qualified Code(s): D64.9 - Anemia, unspecified (3) Acute upper gastrointestinal hemorrhage: Status: Acute (4) Mass of hepatic flexure of colon: Status: Acute Narrative A/P Narrative: Assessment and Plans: 1. Upper GI bleeding with associated anemia, complicated by hepatic flexure colonic mass: Stays in inpatient PCU s/p EGD by Dr. Brandon on 04/19, found bleeding Rajesh's ulcers Will touch base with GI Dr. Brandon regarding further plans such as inpatient vs outpatient EGD and/or colonoscopy Clear liquid diet PPI BID. When discharge, will switch to oral PPI BID for 30 days then daily cbc w/ auto diff daily to trend H/H, transfuse pRBC if H/H drops less than 7. 0/24.0, active bleeding, or symptomatic 2. h/o left leg DVT: Continue to hold Eliquis GI ppx: PPI BID DVT ppx: SCDs Code status: Full Prognosis: guarded Disposition: Stays in inpatient PCU Time Spent With Patient Time: Total time spent is greater than 50% in coordination of care (as documented) at patient's floor/unit and/or counseling patient: Total time spent with greater than 50% in coordination of care (as documented) at patient's floor/unit and/or counseling patient:: Greater than 35 minutes QUALITY VTE Deep Vein Thrombosis/Pulmonary Embolism Present on Admission: No
[2021-04-20] MEDS: morphine 2 MG/ML VIAL IV PRN ×3 (10:51→20:13)
[2021-04-20 11:05] LABS: ALT/SGPT 11 U/L (<40); AST/SGOT 16 U/L (<32); Albumin 2.8 gm/dL (3.2-5.2); Albumin/Globulin Ratio 1.3 (1.0-2.3); Alkaline Phosphatase 69 U/L (39-117); Bilirubin,Total 0.3 mg/dL (0.1-1.0); Blood Urea Nitrogen 27 mg/dL (8-23); Calcium 8.1 mg/dL (8.6-10.4); Carbon Dioxide 19 mmol/L (22-30); Chloride 112 mmol/L (96-108); Globulin 2.1 gm/dL (2.2-3.7); Glomerular Filtration Rate 84; Glucose 92 mg/dL (70-105)
[2021-04-20] MEDS: 0.9 % SODIUM CHLORIDE 1,000 ML IV SCH (12:01)
[2021-04-20] MEDS ORDERED: KETAMINE 50 MG/ML ML IV PRN (16:27)
[2021-04-20] MEDS ORDERED: MIDAZOLAM 2 MG/2 ML VIAL IV SCH (16:30)
[2021-04-20] MEDS ORDERED: PROPOFOL 200 MG/20 ML VIAL IV SCH (16:30)
[2021-04-20] MEDS ORDERED: MIDAZOLAM 2 MG/2 ML VIAL ONE (16:34)
[2021-04-20] MEDS ORDERED: PROPOFOL 200 MG/20 ML VIAL IV ONE (16:34)
[2021-04-20] MEDS ORDERED: POTASSIUM CHLORIDE 20 MEQ in DEXTROSE 5% IN WATER 250 ML IV PRN (17:15)
[2021-04-20] MEDS: PANTOPRAZOLE 40 MG VIAL IV SCH (17:34)
[2021-04-20] MEDS ORDERED: MAGNESIUM CITRATE 300 ML ORAL.SOL PO ONE (17:40)
[2021-04-21] MEDS: 0.9 % SODIUM CHLORIDE 1,000 ML IV SCH ×6 (00:17→23:33)
[2021-04-21] MEDS: 0.9 % SODIUM CHLORIDE 10 ML SYRINGE IV SCH ×4 (01:38→20:21)
[2021-04-21] MEDS ORDERED: PEG 3350/NA SULF,BICARB,CL/KCL 4,000 ML ORAL.SOL PO SCH (07:00)
[2021-04-21] MEDS ORDERED: BETHANECHOL 10 MG TABLET PO SCH (07:00)
[2021-04-21] MEDS ORDERED: FLEETS ADULT ENEMA PR PRN ×2 (07:00→19:22)
[2021-04-21] MEDS ORDERED: MAGNESIUM CITRATE 300 ML ORAL.SOL PO SCH (07:00)
[2021-04-21] MEDS ORDERED: SENNOSIDES 8.8 MG/5 ML ML PT SCH (07:00)
[2021-04-21] MEDS ORDERED: BISACODYL 10 MG SUPP.RECT PR SCH (07:00)
[2021-04-21] MEDS ORDERED: BISACODYL 5 MG TABLET PO SCH (07:00)
[2021-04-21 07:49] LABS: Basophils # (Auto) 0.02 K/mcL (0.00-0.30); Basophils % (Auto) 0.3 % (0.0-2.0); Eosinophils # (Auto) 0.08 K/mcL (0.00-0.70); Eosinophils % (Auto) 1.3 % (0.0-7.0); Hematocrit 28.1 % (34.1-44.9); Hemoglobin 8.4 g/dL (11.2-15.7); Lymphocytes # (Auto) 0.81 K/mcL (1.50-4.80); Lymphocytes % (Auto) 13.3 % (15.5-49.0); Mean Cell Volume 85.4 fL (80.0-100.0); Mean Corpuscular HGB Conc 29.9 g/dL (31.0-36.0); Mean Platelet Volume 10.2 fL (7.4-10.4); Monocytes # (Auto) 0.62 K/mcL (0.10-0.90); Monocytes % (Auto) 10.1 % (1.0-12.0); Platelet Count 224 K/mcL (140-440); RBC 3.29 M/mcL (3.59-5.38); Red Cell Distribution Width 15.1 % (11.5-14.5); WBC 6.1 K/mcL (4.5-11.0)
[2021-04-21] MEDS ORDERED: KETAMINE 50 MG/ML ML IV PRN (08:22)
[2021-04-21] MEDS: PANTOPRAZOLE 40 MG VIAL IV SCH ×2 (08:25→17:27)
[2021-04-21] MEDS ORDERED: MIDAZOLAM 2 MG/2 ML VIAL IV SCH (08:30)
[2021-04-21] MEDS ORDERED: PROPOFOL 200 MG/20 ML VIAL IV SCH (08:30)
[2021-04-21 09:04] LABS: ALT/SGPT 10 U/L (<40); AST/SGOT 17 U/L (<32); Albumin 2.7 gm/dL (3.2-5.2); Albumin/Globulin Ratio 1.1 (1.0-2.3); Alkaline Phosphatase 73 U/L (39-117); Bilirubin,Total 0.3 mg/dL (0.1-1.0); Blood Urea Nitrogen 12 mg/dL (8-23); Calcium 8.1 mg/dL (8.6-10.4); Carbon Dioxide 21 mmol/L (22-30); Chloride 107 mmol/L (96-108); Globulin 2.5 gm/dL (2.2-3.7); Glomerular Filtration Rate 90; Glucose 85 mg/dL (70-105)
[2021-04-21] MEDS ORDERED: 0.9 % SODIUM CHLORIDE 250 ML IV SCH ×2 (10:15→19:22)
--- NOTE | 2021-04-21 10:24 | Internal Med Progress Note ---
SUBJECTIVE Subjective Patient information: Note initiated : 04/21/21 at 10:21 am Service Date, if different from initiated Date: [] Patient: Hector Chadwick a 80 y/o F admitted on 04/18/21 for bloody emesis. Chief Complaint: [GI bleeding] Interval history: History of present illness: Ms. Chadwick is a 80 year old F Presents the ED with hematemesis. Patient has a history of DVT on Eliquis her old home medication does list ibuprofen but she says she does not take that. She woke up yesterday feeling fine and then in the afternoon she started having a little bit of an upset stomach and the pain worsened into the night and it was a sharp and burning pain nonradiating. She had an episode of nausea vomiting last night. She could not sleep very well because of the pain. This morning she had another episode nausea vomiting described as dark coffee-g round emesis. And then she had a large episode of diarrhea of dark stool. She was significantly lightheaded and when she got up to walk she almost passed out and could not walk very far because of weakness as well. Patient denies chest pain or shortness of breath In the ED she had a hemoglobin of 9 and it was 11 few weeks prior. Blood pressures have been in the 90s to low 100s she did have a systolic of 79 at one reading. She is also tachycardic 120s one-point Dr. Phipps was contacted to perform EGD. EGD performed found a small hiatal hernia and several Darrion lesions. Recommendations were for lifelong PPI. 04/19 Patient still feels quite weak but much better than when she came in. Did have some dark liquid stool last night likely residual. 04/20: Continued to have black stools. Denies nausea vomiting or hematemesis. H/H: 9.1/30.0-->8.0/26.9. c/o intermittent, crampy epigastric and RUQ abdominal pain, 10. c/o headache. 04/21: s/p repeat EGD by GI yesterday, no new/recurrent source of bleeding identified. H/H stable. Denies abdominal pain. Denies chest pain. Denies nausea vomiting hematemesis constipation or diarrhea. One episode of black stool overnight. Constitutional Vitals: Vital Signs Temp Pulse Resp BP Pulse Ox 36.9 C 86 14 144/80 97 04/21/21 08:01 04/20/21 17:07 04/21/21 10:01 04/21/21 10:01 04/21/21 10:01 Period Temp Pulse Resp BP Sys/St Pulse Ox Last 24 Hr 36.5 C-36.9 C 77-87 12-25 107-165/61-108 94-99 Intake and Output 04/20/21 04/21/21 04/21/21 21:59 05:59 13:59 Intake Total 1260 Output Total 550 850 550 Balance -550 410 -550 Weight 83.688 kg Intake & Output: Intake & Output 04/20/21 04/21/21 04/21/21 21:59 05:59 13:59 Intake Total 1260 Output Total 550 850 550 Balance -550 410 -550 Weight 83.688 kg Intake: IV 1260 Sodium Chloride 0.9% 1,000 ml @ 1000 100 mls/hr IV .Q10H [facility] Rx#: [id number] Potassium Chloride 20 Meq In 260 Dextrose 5% in Water 250 ml @ 130 mls/hr IV UD PRN Rx#: [id number] Output: Void Amount 300 Urine/Stool Mix 250 850 550 Other: Urine Color Bright Yellow Urine Odor Normal Stool Size Small Stool Color Brown Stool Consistency Liquid Liquid # Bowel Movements 2 # of times incontinent of 0 Bowels General appearance: cooperative and no acute distress Head Head exam: Present atraumatic and normocephalic Eye Eye exam: Present EOMI and PERRL ENT ENT exam: Present mucous membranes moist, normal exam and normal external ear exam Neck Neck exam: Present normal inspection; Absent lymphadenopathy, tenderness and thyromegaly Respiratory Respiratory exam: Absent accessory muscle use, respiratory distress and wheezes Cardiovascular Cardiovascular exam: Present normal rate and rhythm; Absent JVD GI/Abdominal GI/Abdominal exam: Present normal bowel sounds and soft; Absent organomegaly and tenderness Extremities Exam Extremities exam: Present full ROM, normal capillary refill and normal inspection; Absent tenderness Neurological Exam Neurological exam: Present alert, CN II-XII intact and oriented X3; Absent motor sensory deficit Psychiatric Psychiatric exam: Present normal affect and normal mood; Absent anxious and depressed Skin Skin exam: Present dry and intact OBJ DATA Labs CBC & Chem 7: 04/21/21 05:15 04/21/21 05:15 Labs: Abnormal Lab Results 04/21/21 04/21/21 04/20/21 05:15 05:15 05:48 WBC RBC 3.29 L Hgb 8.4 L Hct 28.1 L MCH 25.5 L MCHC 29.9 L RDW 15.1 H Neut % (Auto) Lymph % (Auto) 13.3 L Edmonson % (Auto) Lymph # (Auto) 0.81 L [place] # (Auto) Absolute Neutrophils POC PT POC INR VBG Lactic Acid Chloride 112 H Carbon Dioxide 21 L 19 L Anion Gap BUN 27 H Creatinine 0.5 L Glucose Calcium 8.1 L 8.1 L Lactate Dehydrogenase Total Protein 5.2 L 4.9 L Albumin 2.7 L 2.8 L Globulin 2.1 L 04/20/21 04/19/21 04/19/21 05:48 05:19 05:18 WBC RBC 3.05 L 3.54 L Hgb 8.0 L 9.1 L Hct 26.9 L 30.0 L MCH 25.7 L MCHC 29.7 L 30.3 L RDW 15.3 H 15.0 H Neut % (Auto) Lymph % (Auto) 15.3 L 9.9 L Ed[place] % (Auto) 12.4 H Lymph # (Auto) 0.81 L 0.79 L [place] # (Auto) 0.99 H Absolute Neutrophils POC PT POC INR VBG Lactic Acid Chloride 112 H Carbon Dioxide 18 L Anion Gap BUN 45 H Creatinine Glucose 119 H Calcium 8.3 L Lactate Dehydrogenase 275 H Total Protein 5.4 L Albumin 3.0 L Globulin 04/18/21 04/18/21 04/18/21 18:02 12:10 12:10 WBC RBC Hgb 8.8 L Hct 28.7 L MCH MCHC RDW Neut % (Auto) Lymph % (Auto) Edmonson % (Auto) Lymph # (Auto) Edmonson # (Auto) Absolute Neutrophils POC PT POC INR VBG Lactic Acid 3.8 H Chloride Carbon Dioxide 18 L Anion Gap 17.0 H BUN 42 H Creatinine Glucose 191 H Calcium Lactate Dehydrogenase Total Protein Albumin Globulin 04/18/21 04/18/21 12:10 12:10 WBC 23.2 H RBC 3.58 L Hgb 9.2 L Hct 29.4 L MCH 25.7 L MCHC RDW Neut % (Auto) 94.7 H Lymph % (Auto) 1.3 L Ed[place]on % (Auto) Lymph # (Auto) 0.30 L [place] # (Auto) Absolute Neutrophils 21.97 H POC PT 18.0 H POC INR 1.5 H VBG Lactic Acid Chloride Carbon Dioxide Anion Gap BUN Creatinine Glucose Calcium Lactate Dehydrogenase Total Protein Albumin Globulin Meds: Medications Acetaminophen (Acetaminophen 325 Mg Tablet) 650 mg PO Q6HP PRN; Protocol PRN Reason: Per Pain Protocol/Fever > 101 Last Admin: 04/19/21 21:46 Dose: 650 mg Documented by: Bethanechol Chloride (Bethanechol 10 Mg Tablet) 10 mg PO ONCE [facility] Last Admin: 04/21/21 06:57 Dose: 10 mg Documented by: Bisacodyl (Bisacodyl 5 Mg Tablet) 20 mg PO ONCE [facility] Last Admin: 04/21/21 06:58 Dose: 20 mg Documented by: Bisacodyl (Bisacodyl 10 Mg Supp.Rect) 10 mg MO ONCE [facility] Last Admin: 04/21/21 06:57 Dose: 10 mg Documented by: Diagnostic Test (Pha) (Accu-Chek 1 Each Strip) 1 each FS UD PRN PRN Reason: . Stop: 04/21/21 16:23 Potassium Chloride 40 meq/ (Dextrose) 520 mls @ 130 mls/hr IV UD PRN PRN Reason: Potassium < 3 Magnesium Sulfate (Magnesium Sulfate) 2 gm in 50 mls @ 50 mls/hr IV UD PRN PRN Reason: Magnesium </= 1.6 Sodium Chloride (Sodium Chloride 0.9%) 1,000 mls @ 100 mls/hr IV .Q10H [facility] Last Admin: 04/21/21 07:47 Dose: Not Given Documented by: Potassium Chloride 20 meq/ (Dextrose) 260 mls @ 130 mls/hr IV UD PRN PRN Reason: other Last Infusion: 04/21/21 05:49 Dose: Infused Documented by: Sodium Chloride (Sodium Chloride 0.9%) 250 mls @ 20 mls/hr IV .[id number] [facility] Stop: 04/21/21 22:44 Ketamine HCl (Ketamine 50 Mg/Ml Ml) 50 mg IV ONCE PRN PRN Reason: Sedation Stop: 04/21/21 16:23 Magnesium Citrate (Magnesium Citrate 300 Ml Oral.) 300 ml PO ONCE [facility] Last Admin: 04/21/21 06:58 Dose: 300 ml Documented by: Metoclopramide HCl (Metoclopramide 10 Mg/2 Ml Vial) 10 mg IV Q6HP PRN PRN Reason: Nausea And Vomiting Midazolam HCl (Midazolam 2 Mg/2 Ml Vial) 0 mg IV ONCE [facility] Stop: 04/21/21 16:23 Morphine Sulfate (Morphine 2 Mg/Ml Vial) 2 mg IV Q4HP PRN; Protocol PRN Reason: Per Pain Protocol Last Admin: 04/20/21 20:13 Dose: 2 mg Documented by: Ondansetron HCl (Ondansetron 4 Mg/2 Ml Vial) 4 mg IV Q4HP PRN PRN Reason: Nausea And Vomiting Pantoprazole Sodium (Pantoprazole 40 Mg Vial) 40 mg IV BIDAC [facility] Last Admin: 04/21/21 08:25 Dose: 40 mg Documented by: Polyethylene Glycol/Electrolytes (Peg 3350/Na Sulf,Bicarb,Cl/Kcl 4,000 Ml Oral.) 4,000 ml PO ONCE [facility] Last Admin: 04/21/21 06:59 Dose: 4,000 ml Documented by: Potassium Chloride (Potassium Chloride 20 Meq Tablet) 40 meq PO UD PRN PRN Reason: Potssium is 3-3.5 Last Admin: 04/19/21 10:38 Dose: 40 meq Documented by: Potassium Chloride (Potassium Chloride 20 Meq Tablet) 40 meq PO UD PRN PRN Reason: Potassium < 3 Promethazine HCl (Promethazine 25 Mg/Ml Vial) 12.5 mg IV Q6HP PRN PRN Reason: Nausea And Vomiting Propofol (Propofol 200 Mg/20 Ml Vial) 0 mg IV UD [facility] Stop: 04/21/21 16:23 Senna (Sennosides 8.8 Mg/5 Ml Ml) 52.8 mg PT ONCE [facility] Last Admin: 04/21/21 06:57 Dose: 52.8 mg Documented by: Simethicone (Simethicone 80 Mg Tab.Chew) 80 mg CHEWED QIDP PRN PRN Reason: Dyspepsia Last Admin: 04/20/21 09:13 Dose: 80 mg Documented by: Sodium Biphosphate/Sodium Phosphate (Fleets Adult Enema) 2 dose MO ONCE PRN PRN Reason: Bowel Prep Sodium Chloride (0.9 % Sodium Chloride 10 Ml Syringe) 10 ml IV Q8 [facility] Last Admin: 04/21/21 06:43 Dose: Not Given Documented by: A/P Assessment and plan (1) Left leg DVT: Status: Acute Qualifiers: Affected thrombotic vein of extremity: other lower extremity vein Chronicity: acute Qualified Code(s): I82.492 - Acute embolism and thrombosis of other specified deep vein of left lower extremity (2) Anemia: Status: Acute Qualifiers: Anemia type: unspecified type Qualified Code(s): D64.9 - Anemia, unspecified (3) Acute upper gastrointestinal hemorrhage: Status: Acute (4) Mass of hepatic flexure of colon: Status: Acute Narrative A/P Narrative: Assessment and Plans: 1. Upper GI bleeding with associated anemia, complicated by hepatic flexure colonic mass: Stays in inpatient PCU s/p EGD by Dr. Brandon on 04/19, found bleeding Rajesh's ulcers s/p repeat EGD by Dr. Brandon on 04/20, no new/recurrent source of bleeding Colonoscopy today at 1500 NPO PPI BID. When discharge, will switch to oral PPI BID for 30 days then daily cbc w/ auto diff daily to trend H/H, transfuse pRBC if H/H drops less than 7.0/24.0, active bleeding, or symptomatic 2. h/o left leg DVT: Continue to hold Eliquis GI ppx: PPI BID DVT ppx: SCDs Code status: Full Prognosis: guarded Disposition: Stays in inpatient PCU Time Spent With Patient Time: Total time spent is greater than 50% in coordination of care (as documented) at patient's floor/unit and/or counseling patient: QUALITY VTE Deep Vein Thrombosis/Pulmonary Embolism Present on Admission: No
--- NOTE | 2021-04-21 12:38 | EGD Procedure Note ---
EGD Procedure Notes Procedure Information Patient information: Note initiated : 04/21/21 at 12:36 pm Service Date: 04/20/21 Patient: Hector Chadwick 80 y/o F admitted on 04/18/21 for bloody emesis. Pre-op diagnosis general: GI bleed. Post-Op Diagnosis general: Hiatal hernia. Darrion's ulcers. Procedure: egd Procedure Narrative: The procedure, alternatives and risks were discussed with the patient and the patient's questions were answered. With endoscopist-administered intravenous sedation, the Olympus video endoscope was introduced into the esophagus. The esophagus, stomach, and duodenum were examined sequentially. There is no esophagitis. A hiatal hernia was seen. Darrion's ulcers are healing. THere was no bleeding at present nor stigmata of rebleeding. The gastric mucosa, antrum, pyloric ring and duodenum were otherwise normal. The scope was withdrawn. Assessment: Hiatal hernia. Darrion's ulcers. He should be on a PPI for his lifetime.
[2021-04-21] MEDS ORDERED: MAGNESIUM SULFATE 8.12 MEQ/2 ML VIAL IV ONE (13:05)
[2021-04-21] MEDS ORDERED: MAGNESIUM SULFATE 2 GM/50 ML BAG IV ONE (13:15)
[2021-04-21] MEDS ORDERED: POTASSIUM CHLORIDE 20 MEQ in DEXTROSE 5% IN WATER 250 ML IV ONE (13:30)
--- NOTE | 2021-04-21 18:37 | General Surgery Consult Note ---
HPI Data of Consult Consult date: 04/21/21 Primary Care Provider: Adrian Celestin MD Consult Narrative Chief complaint: Newly Diagnosed Colon Cancer Reason for consult: Newly Diagnosed Colon Cancer History of present illness: Hector is seen in consultation tonight after undergoing Colonoscopy earlier this afternoon with a finding of a large near obstructing mass at the level of the Hepatic Flexure and Right Colon. The scope could not be advanced past the tumor mass. The distal tumor margin was tattooed. Several additional polyps were seen and removed in the left colon but did not grossly appear to be malignant. No active bleeding was reported to my knowledge. Of note, she has been on Eliquis for some period of time for a Left Sided DVT and her last dose was Saturday. She presented to the ER 3 days ago with a bout of bloody emesis and upper EGD was done showing some mild erosions but no large tumor or mass. She does not recall any prior upper or lower endoscopy in the past. Her cardiopulmonary health is quite good per her history. She did smoke but stopped about 20 years ago. She denies any known cardiac history and does not use a CPAP or BIPAP at home and is not on home oxygen. She has had a prior Hysterectomy but no other abdominal surgery. She denies chest pain. cc:: CC: Prabhakar Gilbert Review of Systems All systems: reviewed and no additional remarkable complaints except as stated Constitutional Constitutional: Absent anorexia and weight loss Cardiovascular Cardiovascular: Present leg edema (left leg related to her prior DVT ); Absent chest pain at rest and chest pain with activity Respiratory Respiratory: Absent cough, dyspnea and wheezing Gastrointestinal Gastrointestinal: Present other (see HPI ) Neurological Additional comments: no recent changes - denies falls or confusion Hematologic/Lymphatic Hematologic/Lymphatic: Present other (on Eiliquis as noted ) PFSH PFSH All Active Problems (Updated 04/20/21 @ 10:18 by Alejandro Lancaster MD) Mass of hepatic flexure of colon (Acute) Obesity (Chronic) Psoriasis (Chronic) Seborrheic keratoses (Chronic) Left leg DVT (Acute) Elevated blood pressure reading without diagnosis of hypertension (Acute) Anemia (Acute) Hypokalemia (Acute) Acute upper gastrointestinal hemorrhage (Acute) Influenza vaccination declined (Acute) Pneumococcal vaccination declined (Acute) Medical History Anemia Edema of left lower leg Elevated blood pressure reading without diagnosis of hypertension Hypokalemia Influenza vaccination declined Knee pain Left leg DVT Medicare annual wellness visit, initial Obesity Pneumococcal vaccination declined Psoriasis Seborrheic keratoses Surgical History History of arthroscopy of knee History of hysterectomy (~1979) History of tonsillectomy Family History Other No pertinent family history Social History marital status: smoking status: Former smoker quit date: 07/15/99 pack-years: 40 alcohol intake frequency: does not drink substance use type: does not use MEDS/ALLERGIES Home Medications and Allergies Home Medications Medication Instructions Recorded Confirmed Type apixaban 5 mg tablet 5 mg PO BID #60 tab 03/09/21 04/18/21 Rx Allergies Allergy/AdvReac Type Severity Reaction Status Date / Time No Known Drug Allergies Allergy Verified 04/18/21 11:18 Physical Examination Vital Signs Vital signs: Temp Pulse Resp BP Pulse Ox 98.1 F 83 12 95/66 91 04/21/21 16:11 04/21/21 15:50 04/21/21 18:01 04/21/21 18:01 04/21/21 18:01 General physical appearance General physical exam: well developed and no distress Eyes Eye exam: PERRL ENT ENT exam: normal pinna Head Head exam IM: Present atraumatic and normocephalic Neck Neck exam: no masses and no lymphadenopathy Cardiovascular Cardiovascular exam IM: Present normal rate and rhythm Respiratory Respiratory exam: normal expansion and normal respiratory effort Abdomen Abdomen: Present soft (her belly seems soft and benign, I am unable to definitively feel a mass in the Right Upper Abdomen although there is some fullness there ) and non tender; Absent masses, guarding and distended Integumentary Integumentary: Present other (intact) Neurologic Neurologic: Present other (grossly intact ) Psychiatric Psychiatric: Present other (normal affect ) Results Labs Result diagrams: 04/21/21 05:15 04/21/21 05:15 Labs: Abnormal lab results 04/21/21 04/21/21 Range/Units 05:15 05:15 RBC 3.29 L (3.59-5.38) M/mcL Hgb 8.4 L (11.2-15.7) g/dL Hct 28.1 L (34.1-44.9) % MCH 25.5 L (26.0-34.0) pg MCHC 29.9 L (31.0-36.0) g/dL RDW 15.1 H (11.5-14.5) % Lymph % (Auto) 13.3 L (15.5-49.0) % Lymph # (Auto) 0.81 L (1.50-4.80) K/mcL Carbon Dioxide 21 L (22-30) mmol/L Creatinine 0.5 L (0.6-1.1) mg/dL Calcium 8.1 L (8.6-10.4) mg/dL Total Protein 5.2 L (5.9-8.4) gm/dL Albumin 2.7 L (3.2-5.2) gm/dL Diabetes panel 04/21/21 Range/Units 05:15 Sodium 139 (133-145) mmol/L Potassium 3.3 (3.3-5.1) mmol/L Chloride 107 (96-108) mmol/L Carbon Dioxide 21 L (22-30) mmol/L BUN 12 (8-23) mg/dL Creatinine 0.5 L (0.6-1.1) mg/dL Glucose 85 (70-105) mg/dL Calcium 8.1 L (8.6-10.4) mg/dL AST 17 (<32) U/L ALT 10 (<40) U/L Alkaline Phosphatase 73 (39-117) U/L Total Protein 5.2 L (5.9-8.4) gm/dL Albumin 2.7 L (3.2-5.2) gm/dL Calcium panel 04/21/21 Range/Units 05:15 Calcium 8.1 L (8.6-10.4) mg/dL Albumin 2.7 L (3.2-5.2) gm/dL Pituitary panel 04/21/21 Range/Units 05:15 Sodium 139 (133-145) mmol/L Potassium 3.3 (3.3-5.1) mmol/L Chloride 107 (96-108) mmol/L Carbon Dioxide 21 L (22-30) mmol/L BUN 12 (8-23) mg/dL Creatinine 0.5 L (0.6-1.1) mg/dL Glucose 85 (70-105) mg/dL Calcium 8.1 L (8.6-10.4) mg/dL Adrenal panel 04/21/21 Range/Units 05:15 Sodium 139 (133-145) mmol/L Potassium 3.3 (3.3-5.1) mmol/L Chloride 107 (96-108) mmol/L Carbon Dioxide 21 L (22-30) mmol/L BUN 12 (8-23) mg/dL Creatinine 0.5 L (0.6-1.1) mg/dL Glucose 85 (70-105) mg/dL Calcium 8.1 L (8.6-10.4) mg/dL Total Bilirubin 0.3 (0.1-1.0) mg/dL AST 17 (<32) U/L ALT 10 (<40) U/L Alkaline Phosphatase 73 (39-117) U/L Total Protein 5.2 L (5.9-8.4) gm/dL Albumin 2.7 L (3.2-5.2) gm/dL All other labs normal. A/P Assessment and plan (1) Mass of hepatic flexure of colon: Status: Acute Narrative A/P Narrative: Locally advanced Right Colon Cancer CT scan findings are reviewed and although she is clinically benign there does seem to be at least some degree of obstruction. She was able to tolerate a bowel prep however and large amounts of gas and stool are seen in the downstream colon so clearly she is still getting a fair amount through Resection is recommended and discussed with her at length. I've also discussed the situation at her request with her daughter as well. There does appear to be some invasion of the overlying abdominal wall and the tumor is large and bulky. Options and issues are reviewed at length. Risks, benefits, potential complications and alternative treatment plans are all discussed at length including but not limited to bleeding, infection, risk of leak, drain placement, potential need for additional surgery, stomal diversion and other issues as w ell. We also discussed the probable need for placement in assisted living for at least some period of time following hospital discharge. Given that she has already been prepped, we will have her only on clear sips leading up to surgery. Her Eliquis will continue to be held and I usually try to allow a full 4 days to pass since the last dose prior to going ahead with surgery. My current anticipation is that we would go ahead with this in the next 2-3 days, sooner if the situation becomes more urgent. Time Spent With Patient Time: Total time spent is greater than 50% in coordination of care (as documented) at patient's floor/unit and/or counseling patient:
[2021-04-21] MEDS ORDERED: MAGNESIUM SULFATE 2 GM/50 ML BAG IV PRN (19:22)
[2021-04-21] MEDS ORDERED: PROMETHAZINE 25 MG/ML VIAL IV PRN (19:22)
[2021-04-21] MEDS ORDERED: ACETAMINOPHEN 325 MG TABLET PO PRN (19:22)
[2021-04-21] MEDS ORDERED: SIMETHICONE 80 MG TAB.CHEW CHEWED PRN (19:22)
[2021-04-21] MEDS ORDERED: POTASSIUM CHLORIDE 20 MEQ TABLET PO PRN ×2 (19:22)
[2021-04-21] MEDS ORDERED: METOCLOPRAMIDE 10 MG/2 ML VIAL IV PRN (19:22)
[2021-04-21] MEDS ORDERED: ONDANSETRON 4 MG/2 ML VIAL IV PRN (19:22)
[2021-04-21] MEDS ORDERED: POTASSIUM CHLORIDE 40 MEQ in DEXTROSE 5% IN WATER 500 ML IV PRN (19:22)
[2021-04-21] MEDS: SENNOSIDES 8.8 MG/5 ML ML PT SCH (20:23)
[2021-04-21] MEDS: PEG 3350/NA SULF,BICARB,CL/KCL 4,000 ML ORAL.SOL PO SCH (20:23)
[2021-04-22] MEDS: 0.9 % SODIUM CHLORIDE 10 ML SYRINGE IV SCH ×3 (04:19→21:02)
[2021-04-22] MEDS: 0.9 % SODIUM CHLORIDE 1,000 ML IV SCH ×4 (04:54→16:47)
--- NOTE | 2021-04-22 07:29 | Colonoscopy Procedure Note ---
Colonoscopy Procedure Notes Procedure Information Patient information: Note initiated : 04/22/21 at 7:26 am Service Date: 04/21/21 Patient: Hector Chadwick 80 y/o F admitted on 04/18/21 for bloody emesis. Pre-op diagnosis general: Abnormal CT. Post-op diagnosis general: Hepatic flexure colon adenocarcinoma. Colonic polyps. Procedure: Colonoscopy with Bx Procedure narrative: The procedure, alternatives and risks were discussed with the patient and the patient's questions were answered. With endoscopist- administered intravenous sedation, the Olympus colonoscope was introduced into the rectum and advanced to the cecum. Ileocecal valve was identified, intubated, and several centimeters of the terminal ileum were examined and appeared normal. A huge obstructing colon cancer was seen at the hepatic flexure. It was impassable. This was biopsied. Ivette ink was injected distally. Colonic polyps were seen in the descending and sigmoid colon and rectum. The sigmoid polyp was removed with a snare using cautery. The rectal polyp was removed with a snare. The descending polyps were removed with biopsy technique. They were retrieved for histological examination. Assessment: Hepatic flexure colon adenocarcinoma. Colonic polyps.
[2021-04-22] MEDS: PANTOPRAZOLE 40 MG VIAL IV SCH ×2 (07:38→16:38)
[2021-04-22 08:06] LABS: Basophils # (Auto) 0.01 K/mcL (0.00-0.30); Basophils % (Auto) 0.2 % (0.0-2.0); Eosinophils # (Auto) 0.06 K/mcL (0.00-0.70); Eosinophils % (Auto) 1.1 % (0.0-7.0); Hematocrit 27.4 % (34.1-44.9); Hemoglobin 8.3 g/dL (11.2-15.7); Lymphocytes # (Auto) 0.63 K/mcL (1.50-4.80); Lymphocytes % (Auto) 11.1 % (15.5-49.0); Mean Cell Volume 87.3 fL (80.0-100.0); Mean Corpuscular HGB Conc 30.3 g/dL (31.0-36.0); Mean Platelet Volume 10.5 fL (7.4-10.4); Monocytes # (Auto) 0.43 K/mcL (0.10-0.90); Monocytes % (Auto) 7.6 % (1.0-12.0); Platelet Count 220 K/mcL (140-440); RBC 3.14 M/mcL (3.59-5.38); Red Cell Distribution Width 15.4 % (11.5-14.5); WBC 5.7 K/mcL (4.5-11.0)
[2021-04-22 08:50] LABS: ALT/SGPT 25 U/L (<40); AST/SGOT 41 U/L (<32); Albumin 2.8 gm/dL (3.2-5.2); Albumin/Globulin Ratio 1.2 (1.0-2.3); Alkaline Phosphatase 75 U/L (39-117); Bilirubin,Total 0.2 mg/dL (0.1-1.0); Blood Urea Nitrogen 4 mg/dL (8-23); Calcium 7.8 mg/dL (8.6-10.4); Carbon Dioxide 20 mmol/L (22-30); Chloride 104 mmol/L (96-108); Globulin 2.4 gm/dL (2.2-3.7); Glomerular Filtration Rate 90; Glucose 76 mg/dL (70-105)
--- NOTE | 2021-04-22 11:16 | General Surgery Progress Note ---
SUBJECTIVE Subjective Patient information: Note initiated : 04/22/21 at 11:06 am Service Date, if different from initiated Date: [] Patient: Hector Chadwick a 80 y/o F admitted on 04/18/21 for bloody emesis. Chief Complaint: [Locally Advanced Right Colonic Hepatic Flexure Mass Hector continues to feel well this am and denies any abdominal pain. She has passed gas and stool throughout the evening and passing large amounts of urine. ] Constitutional Vitals: Vital Signs Temp Pulse Resp BP Pulse Ox 98 F 60 16 132/69 97 04/22/21 07:24 04/22/21 07:24 04/22/21 07:24 04/22/21 07:24 04/22/21 07:24 Period Temp Pulse Resp BP Sys/St Pulse Ox Last 24 Hr 97.4 F-98.7 F 55-83 12-24 95-151/66-98 91-100 Intake and Output 04/21/21 04/22/21 04/22/21 21:59 05:59 13:59 Intake Total 310 1000 1209 Output Total 350 700 500 Balance -40 300 709 Weight 183 lb Intake & Output: Intake & Output 04/21/21 04/22/21 04/22/21 21:59 05:59 13:59 Intake Total 310 1000 1209 Output Total 350 700 500 Balance -40 300 709 Weight 183 lb Intake: IV 310 1000 1209 Sodium Chloride 0.9% 1,000 ml @ 1000 1000 100 mls/hr IV .Q10H COUNT INCLUDES THE [facility] Rx#: [id number] Sodium Chloride 0.9% 250 ml @ 209 20 mls/hr IV .[id number] COUNT INCLUDES THE [facility] Rx#: [id number] Potassium Chloride 20 Meq In 260 Dextrose 5% in Water 250 ml @ 130 mls/hr IV ONCE ONE Rx#: [id number] Output: Void Amount 700 500 Stool 350 Other: Urine Appearance Clear Clear Clear Urine Color Pale Pale Urine Odor Normal Stool Size Small Small Moderate Stool Color Green Blood Tinged Brown Blood Tinged Stool Consistency Liquid Loose Loose Loose # Voids 1 1 # Bowel Movements 1 1 1 General appearance: cooperative and no acute distress Head Head exam: Present atraumatic, normal inspection and normocephalic Respiratory Respiratory exam: Present normal respiratory exam; Absent respiratory distress, stridor and wheezes Cardiovascular Cardiovascular exam: Present normal rate and rhythm Additional comments: remains soft and non tender without obvious distension Extremities Exam Additional comments: extremities well perfused Neurological Exam Neurological exam: Present alert and oriented X3 Psychiatric Psychiatric exam: Present normal affect A/P Narrative A/P Narrative: Locally Advanced Near Obstructing Right Colon/Hepatic Flexure Cancer She seems to be doing well clinically and we currently have her on the schedule for Saturday AM for planned Ex Lap, Right Hemicolectomy and Probable Excision of the Overlying Involved Abdominal Wall. Issues surrounding surgery were discussed once again this morning. I anticipate that we'll be able to go ahead and re establish intestinal continuity at the time of surgery but possible need for stomal diversion was discussed at length as well. She'll continue on clear sips and IVF for now. Will re check Hbg level in the AM but in all likelihood we'll transfuse a unit or two prior to surgery given her current level of anemia even though she appears to be tolerating it well without any strong evidence of significant active bleeding Time Spent With Patient Time: Total time spent is greater than 50% in coordination of care (as documented) at patient's floor/unit and/or counseling patient:
--- NOTE | 2021-04-22 12:11 | Internal Med Progress Note ---
SUBJECTIVE Subjective Patient information: Note initiated : 04/22/21 at 12:07 pm Service Date, if different from initiated Date: [] Patient: Hector Chadwick a 80 y/o F admitted on 04/18/21 for bloody emesis. Chief Complaint: [GI bleeding] Interval history: History of present illness: Ms. Chadwick is a 80 year old F Presents the ED with hematemesis. Patient has a history of DVT on Eliquis her old home medication does list ibuprofen but she says she does not take that. She woke up yesterday feeling fine and then in the afternoon she started having a little bit of an upset stomach and the pain worsened into the night and it was a sharp and burning pain nonradiating. She had an episode of nausea vomiting last night. She could not sleep very well because of the pain. This morning she had another episode nausea vomiting described as dark coffee-g round emesis. And then she had a large episode of diarrhea of dark stool. She was significantly lightheaded and when she got up to walk she almost passed out and could not walk very far because of weakness as well. Patient denies chest pain or shortness of breath In the ED she had a hemoglobin of 9 and it was 11 few weeks prior. Blood pressures have been in the 90s to low 100s she did have a systolic of 79 at one reading. She is also tachycardic 120s one-point Dr. Phipps was contacted to perform EGD. EGD performed found a small hiatal hernia and several Darrion lesions. Recommendations were for lifelong PPI. 04/19 Patient still feels quite weak but much better than when she came in. Did have some dark liquid stool last night likely residual. 04/20: Continued to have black stools. Denies nausea vomiting or hematemesis. H/H: 9.1/30.0-->8.0/26.9. c/o intermittent, crampy epigastric and RUQ abdominal pain, 11/21. c/o headache. 04/21: s/p repeat EGD by GI yesterday, no new/recurrent source of bleeding identified. H/H stable. Denies abdominal pain. Denies chest pain. Denies nausea vomiting hematemesis constipation or diarrhea. One episode of black stool overnight. 04/22: s/p colonoscopy on 04/21, could not advance the scope pass the tumor at hepatic flexure. General surgeon Dr. Wilkerson decided to proceed with tumor/bowel resection on . NPO for the time being. Serum potassium level 2.9. Denies any fever or chills. Denies any nausea or vomiting. Still have black stools. Denies any abdominal pain. Constitutional Vitals: Vital Signs Temp Pulse Resp BP Pulse Ox 36.6 C 65 18 133/75 96 04/22/21 11:33 04/22/21 11:33 04/22/21 11:33 04/22/21 11:33 04/22/21 11:33 Period Temp Pulse Resp BP Sys/St Pulse Ox Last 24 Hr 36.3 C-36.8 C 55-83 12-24 95-151/66-98 91-100 Intake and Output 04/21/21 04/22/21 04/22/21 21:59 05:59 13:59 Intake Total 310 1000 1209 Output Total 350 700 500 Balance -40 300 709 Weight 83.007 kg Intake & Output: Intake & Output 04/21/21 04/22/21 04/22/21 21:59 05:59 13:59 Intake Total 310 1000 1209 Output Total 350 700 500 Balance -40 300 709 Weight 83.007 kg Intake: IV 310 1000 1209 Sodium Chloride 0.9% 1,000 ml @ 1000 1000 100 mls/hr IV .Q10H [facility] Rx#: [id number] Sodium Chloride 0.9% 250 ml @ 209 20 mls/hr IV .[id number] [facility] Rx#: [id number] Potassium Chloride 20 Meq In 260 Dextrose 5% in Water 250 ml @ 130 mls/hr IV ONCE ONE Rx#: [id number] Output: Void Amount 700 500 Stool 350 Other: Urine Appearance Clear Clear Clear Urine Color Pale Pale Urine Odor Normal Stool Size Small Small Moderate Stool Color Green Blood Tinged Brown Blood Tinged Stool Consistency Liquid Loose Loose Loose # Voids 1 1 # Bowel Movements 1 1 1 General appearance: cooperative and no acute distress Head Head exam: Present atraumatic and normocephalic Eye Eye exam: Present EOMI and PERRL ENT ENT exam: Present mucous membranes moist, normal exam and normal external ear exam Neck Neck exam: Present normal inspection; Absent lymphadenopathy, tenderness and thyromegaly Respiratory Respiratory exam: Absent accessory muscle use, respiratory distress and wheezes Cardiovascular Cardiovascular exam: Present normal rate and rhythm; Absent JVD GI/Abdominal GI/Abdominal exam: Present normal bowel sounds and soft; Absent organomegaly and tenderness Extremities Exam Extremities exam: Present full ROM, normal capillary refill and normal inspection; Absent tenderness Neurological Exam Neurological exam: Present alert, CN II-XII intact and oriented X3; Absent motor sensory deficit Psychiatric Psychiatric exam: Present normal affect and normal mood; Absent anxious and depressed Skin Skin exam: Present dry and intact OBJ DATA Labs CBC & Chem 7: 04/22/21 05:42 04/22/21 05:42 Labs: Abnormal Lab Results 04/22/21 04/22/21 04/21/21 05:42 05:42 05:15 RBC 3.14 L Hgb 8.3 L Hct 27.4 L MCH MCHC 30.3 L RDW 15.4 H MPV 10.5 H Neut % (Auto) 80.0 H Lymph % (Auto) 11.1 L Lymph # (Auto) 0.63 L Potassium 2.9 L* Chloride Carbon Dioxide 20 L 21 L BUN 4 L Creatinine 0.5 L 0.5 L Calcium 7.8 L 8.1 L AST 41 H Total Protein 5.2 L 5.2 L Albumin 2.8 L 2.7 L Globulin 04/21/21 04/20/21 04/20/21 05:15 05:48 05:48 RBC 3.29 L 3.05 L Hgb 8.4 L 8.0 L Hct 28.1 L 26.9 L MCH 25.5 L MCHC 29.9 L 29.7 L RDW 15.1 H 15.3 H MPV Neut % (Auto) Lymph % (Auto) 13.3 L 15.3 L Lymph # (Auto) 0.81 L 0.81 L Potassium Chloride 112 H Carbon Dioxide 19 L BUN 27 H Creatinine Calcium 8.1 L AST Total Protein 4.9 L Albumin 2.8 L Globulin 2.1 L Meds: Medications Acetaminophen (Acetaminophen 325 Mg Tablet) 650 mg PO Q6HP PRN; Protocol PRN Reason: Per Pain Protocol/Fever > 101 Sodium Chloride (Sodium Chloride 0.9%) 1,000 mls @ 100 mls/hr IV .Q10H [facility] Last Admin: 04/22/21 09:42 Dose: 100 mls/hr Documented by: Magnesium Sulfate (Magnesium Sulfate) 2 gm in 50 mls @ 50 mls/hr IV UD PRN PRN Reason: Magnesium </= 1.6 Potassium Chloride 20 meq/ (Dextrose) 260 mls @ 130 mls/hr IV UD PRN PRN Reason: other Potassium Chloride 40 meq/ (Dextrose) 520 mls @ 130 mls/hr IV UD PRN PRN Reason: Potassium < 3 Metoclopramide HCl (Metoclopramide 10 Mg/2 Ml Vial) 10 mg IV Q6HP PRN PRN Reason: Nausea And Vomiting Morphine Sulfate (Morphine 2 Mg/Ml Vial) 2 mg IV Q4HP PRN; Protocol PRN Reason: Per Pain Protocol Ondansetron HCl (Ondansetron 4 Mg/2 Ml Vial) 4 mg IV Q4HP PRN PRN Reason: Nausea And Vomiting Pantoprazole Sodium (Pantoprazole 40 Mg Vial) 40 mg IV BIDAC [facility] Last Admin: 04/22/21 07:38 Dose: 40 mg Documented by: Polyethylene Glycol/Electrolytes (Peg 3350/Na Sulf,Bicarb,Cl/Kcl 4,000 Ml Oral.) 4,000 ml PO ONCE [facility] Last Admin: 04/21/21 20:23 Dose: Not Given Documented by: Potassium Chloride (Potassium Chloride 20 Meq Tablet) 40 meq PO UD PRN PRN Reason: Potssium is 3-3.5 Potassium Chloride (Potassium Chloride 20 Meq Tablet) 40 meq PO UD PRN PRN Reason: Potassium < 3 Promethazine HCl (Promethazine 25 Mg/Ml Vial) 12.5 mg IV Q6HP PRN PRN Reason: Nausea And Vomiting Senna (Sennosides 8.8 Mg/5 Ml Ml) 52.8 mg PT ONCE [facility] Last Admin: 04/21/21 20:23 Dose: Not Given Documented by: Simethicone (Simethicone 80 Mg Tab.Chew) 80 mg CHEWED QIDP PRN PRN Reason: Dyspepsia Sodium Biphosphate/Sodium Phosphate (Fleets Adult Enema) 2 dose OR ONCE PRN PRN Reason: Bowel Prep Sodium Chloride (0.9 % Sodium Chloride 10 Ml Syringe) 10 ml IV Q8 [facility] Last Admin: 04/22/21 04:19 Dose: 10 ml Documented by: A/P Assessment and plan (1) Left leg DVT: Status: Acute Qualifiers: Affected thrombotic vein of extremity: other lower extremity vein Chronicity: acute Qualified Code(s): I82.492 - Acute embolism and thrombosis of other specified deep vein of left lower extremity (2) Anemia: Status: Acute Qualifiers: Anemia type: unspecified type Qualified Code(s): D64.9 - Anemia, unspecified (3) Acute upper gastrointestinal hemorrhage: Status: Acute (4) Mass of hepatic flexure of colon: Status: Acute Narrative A/P Narrative: Assessment and Plans: 1. Upper GI bleeding with associated anemia, complicated by hepatic flexure colonic mass: Stays in inpatient med surg s/p EGD by Dr. Brandon on 04/19, found bleeding Rajesh's ulcers s/p repeat EGD by Dr. Brandon on 04/20, no new/recurrent source of bleeding s/p colonoscopy on 04/21, could not advance the scope pass the tumor at hepatic flexure General surgeon Dr. Wilkerson decided to proceed with tumor/bowel resection on NPO with IV NS@100cc/hr PPI BID. When discharge, will switch to oral PPI BID for 30 days then daily cbc w/ auto diff daily to trend H/H, transfuse pRBC if H/H drops less than 7.0/24.0, active bleeding, or symptomatic 2. h/o left leg DVT: Continue to hold Eliquis for planned surgery, see #1 GI ppx: PPI BID DVT ppx: SCDs Code status: Full Prognosis: Stable Disposition: Stays in inpatient med surg Time Spent With Patient Time: Total time spent is greater than 50% in coordination of care (as documented) at patient's floor/unit and/or counseling patient: QUALITY VTE Deep Vein Thrombosis/Pulmonary Embolism Present on Admission: No
[2021-04-22 12:28] LABS: Phosphorous 2.4 mg/dL (2.5-4.5)
[2021-04-22] MEDS: PEG 3350/NA SULF,BICARB,CL/KCL 4,000 ML ORAL.SOL PO SCH (18:45)
[2021-04-22] MEDS: SENNOSIDES 8.8 MG/5 ML ML PT SCH (18:46)
[2021-04-23] MEDS: 0.9 % SODIUM CHLORIDE 1,000 ML IV SCH ×4 (02:43→23:51)
[2021-04-23] MEDS: 0.9 % SODIUM CHLORIDE 10 ML SYRINGE IV SCH ×3 (05:17→23:51)
[2021-04-23] MEDS: PANTOPRAZOLE 40 MG VIAL IV SCH ×2 (06:57→16:48)
[2021-04-23 06:58] LABS: Basophils # (Auto) 0.02 K/mcL (0.00-0.30); Basophils % (Auto) 0.3 % (0.0-2.0); Eosinophils # (Auto) 0.11 K/mcL (0.00-0.70); Eosinophils % (Auto) 1.8 % (0.0-7.0); Hematocrit 26.6 % (34.1-44.9); Hemoglobin 8.2 g/dL (11.2-15.7); Lymphocytes # (Auto) 0.73 K/mcL (1.50-4.80); Mean Corpuscular HGB Conc 30.8 g/dL (31.0-36.0); Mean Platelet Volume 9.8 fL (7.4-10.4); Monocytes # (Auto) 0.47 K/mcL (0.10-0.90); Monocytes % (Auto) 7.7 % (1.0-12.0); Neutrophils % (Auto) 78.2 % (38.0-78.0); Platelet Count 238 K/mcL (140-440); RBC 3.13 M/mcL (3.59-5.38); Red Cell Distribution Width 15.5 % (11.5-14.5); WBC 6.1 K/mcL (4.5-11.0)
[2021-04-23 07:38] LABS: ALT/SGPT 32 U/L (<40); AST/SGOT 42 U/L (<32); Albumin 2.8 gm/dL (3.2-5.2); Albumin/Globulin Ratio 1.1 (1.0-2.3); Alkaline Phosphatase 71 U/L (39-117); Bilirubin,Total 0.3 mg/dL (0.1-1.0); Blood Urea Nitrogen 3 mg/dL (8-23); Calcium 8.1 mg/dL (8.6-10.4); Carbon Dioxide 21 mmol/L (22-30); Chloride 105 mmol/L (96-108); Globulin 2.5 gm/dL (2.2-3.7); Glomerular Filtration Rate 84; Glucose 73 mg/dL (70-105)
--- NOTE | 2021-04-23 10:11 | General Surgery Progress Note ---
SUBJECTIVE Subjective Patient information: Note initiated : 04/23/21 at 10:07 am Service Date, if different from initiated Date: [] Patient: Hector Chadwick a 80 y/o F admitted on 04/18/21 for bloody emesis. Chief Complaint: [Right Colonic/Hepatic Flexure Mass She continues to feel well this am. Passing some gas and light particulate matter. No pain.] Constitutional Vitals: Vital Signs Temp Pulse Resp BP Pulse Ox 97.9 F 70 16 141/75 97 04/23/21 07:26 04/23/21 07:26 04/23/21 07:26 04/23/21 07:26 04/23/21 07:26 Period Temp Pulse Resp BP Sys/St Pulse Ox Last 24 Hr 97.1 F-98.7 F 65-83 14-18 131-150/64-85 96-98 Intake and Output 04/22/21 04/23/21 04/23/21 21:59 05:59 13:59 Intake Total 1520 50 Output Total 1300 850 Balance 1520 -1250 -850 Weight 186 lb Intake & Output: Intake & Output 04/22/21 04/23/21 04/23/21 21:59 05:59 13:59 Intake Total 1520 50 Output Total 1300 850 Balance 1520 -1250 -850 Weight 186 lb Intake: IV 1520 Sodium Chloride 0.9% 1,000 ml @ 1000 100 mls/hr IV .Q10H [facility] Rx#: [id number] Potassium Chloride 40 Meq In 520 Dextrose 5% in Water 500 ml @ 130 mls/hr IV UD PRN Rx#: [id number] Oral 50 Output: Urine Catheter Amount 400 Void Amount 1300 450 Other: Urine Appearance Clear Urine Color Pale Stool Size Small Small Large Stool Color Brown Brown Brown Stool Consistency Normal for Patient Loose Formed # Voids 1 # Bowel Movements 1 1 1 General appearance: cooperative and no acute distress Head Head exam: Present atraumatic, normal inspection and normocephalic Respiratory Respiratory exam: Present normal respiratory exam; Absent rales, respiratory distress and stridor Cardiovascular Cardiovascular exam: Present normal rate and rhythm GI/Abdominal Additional comments: abdomen remains soft and non tender, non distended Extremities Exam Additional comments: appear well perfused A/P Assessment and plan (1) Mass of hepatic flexure of colon: Status: Acute Narrative A/P Narrative: Continues to look well clinically Will plan for OR tomorrow with Ex Lap, Right Colectomy and Resection of Large Hepatic Flexure Mass Risk, benefits, potential complications and alternative treatment options are all once again reviewed Will transfuse a unit of PRBC today and have 2 Units held 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
[2021-04-23] MEDS ORDERED: 0.9 % SODIUM CHLORIDE 250 ML IV SCH (10:30)
[2021-04-23] MEDS: POTASSIUM CHLORIDE 20 MEQ in DEXTROSE 5% IN WATER 250 ML IV PRN (10:59)
--- NOTE | 2021-04-23 11:29 | Internal Med Progress Note ---
SUBJECTIVE Subjective Patient information: Note initiated : 04/23/21 at 11:25 am Service Date, if different from initiated Date: [] Patient: Hector Chadwick a 80 y/o F admitted on 04/18/21 for bloody emesis. Chief Complaint: [GI bleeding] Interval history: History of present illness: Ms. Chadwick is a 80 year old F Presents the ED with hematemesis. Patient has a history of DVT on Eliquis her old home medication does list ibuprofen but she says she does not take that. She woke up yesterday feeling fine and then in the afternoon she started having a little bit of an upset stomach and the pain worsened into the night and it was a sharp and burning pain nonradiating. She had an episode of nausea vomiting last night. She could not sleep very well because of the pain. This morning she had another episode nausea vomiting described as dark coffee-g round emesis. And then she had a large episode of diarrhea of dark stool. She was significantly lightheaded and when she got up to walk she almost passed out and could not walk very far because of weakness as well. Patient denies chest pain or shortness of breath In the ED she had a hemoglobin of 9 and it was 11 few weeks prior. Blood pressures have been in the 90s to low 100s she did have a systolic of 79 at one reading. She is also tachycardic 120s one-point Dr. Phipps was contacted to perform EGD. EGD performed found a small hiatal hernia and several Darrion lesions. Recommendations were for lifelong PPI. 04/19 Patient still feels quite weak but much better than when she came in. Did have some dark liquid stool last night likely residual. 04/20: Continued to have black stools. Denies nausea vomiting or hematemesis. H/H: 9.1/30.0-->8.0/26.9. c/o intermittent, crampy epigastric and RUQ abdominal pain, 11/21. c/o headache. 04/21: s/p repeat EGD by GI yesterday, no new/recurrent source of bleeding identified. H/H stable. Denies abdominal pain. Denies chest pain. Denies nausea vomiting hematemesis constipation or diarrhea. One episode of black stool overnight. 04/22: s/p colonoscopy on 04/21, could not advance the scope pass the tumor at hepatic flexure. General surgeon Dr. Wilkerson decided to proceed with tumor/bowel resection on . NPO for the time being. Serum potassium level 2.9. Denies any fever or chills. Denies any nausea or vomiting. Still have black stools. Denies any abdominal pain. 04/23: Hemoglobin 8.3-->8.2. Dr. Wilkerson decide to give 1 unit pRBC transfusion today as part of the pre-op measures. Denies any abdominal pain. Denies any nausea or vomiting. Denies any fever or chills. Constitutional Vitals: Vital Signs Temp Pulse Resp BP Pulse Ox 36.6 C 70 16 141/75 97 04/23/21 07:26 04/23/21 07:26 04/23/21 07:26 04/23/21 07:26 04/23/21 07:26 Period Temp Pulse Resp BP Sys/St Pulse Ox Last 24 Hr 36.2 C-37.1 C 65-83 14-18 131-150/64-85 96-98 Intake and Output 04/22/21 04/23/21 04/23/21 21:59 05:59 13:59 Intake Total 1520 50 Output Total 1300 850 Balance 1520 -1250 -850 Weight 84.368 kg Intake & Output: Intake & Output 04/22/21 04/23/21 04/23/21 21:59 05:59 13:59 Intake Total 1520 50 Output Total 1300 850 Balance 1520 -1250 -850 Weight 84.368 kg Intake: IV 1520 Sodium Chloride 0.9% 1,000 ml @ 1000 100 mls/hr IV .Q10H [facility] Rx#: [id number] Potassium Chloride 40 Meq In 520 Dextrose 5% in Water 500 ml @ 130 mls/hr IV UD PRN Rx#: [id number] Oral 50 Output: Urine Catheter Amount 400 Void Amount 1300 450 Other: Urine Appearance Clear Urine Color Pale Stool Size Small Small Large Stool Color Brown Brown Brown Stool Consistency Normal for Patient Loose Formed # Voids 1 # Bowel Movements 1 1 1 General appearance: cooperative and no acute distress Head Head exam: Present atraumatic and normocephalic Eye Eye exam: Present EOMI and PERRL ENT ENT exam: Present mucous membranes moist, normal exam and normal external ear exam Neck Neck exam: Present normal inspection; Absent lymphadenopathy, tenderness and thyromegaly Respiratory Respiratory exam: Absent accessory muscle use, respiratory distress and wheezes Cardiovascular Cardiovascular exam: Present normal rate and rhythm; Absent JVD GI/Abdominal GI/Abdominal exam: Present normal bowel sounds and soft; Absent organomegaly and tenderness Extremities Exam Extremities exam: Present full ROM, normal capillary refill and normal inspection; Absent tenderness Neurological Exam Neurological exam: Present alert, CN II-XII intact and oriented X3; Absent motor sensory deficit Psychiatric Psychiatric exam: Present normal affect and normal mood; Absent anxious and depressed Skin Skin exam: Present dry and intact OBJ DATA Labs CBC & Chem 7: 04/23/21 05:26 04/23/21 05:25 Labs: Abnormal Lab Results 04/23/21 04/23/21 04/22/21 05:26 05:25 05:42 RBC 3.13 L Hgb 8.2 L Hct 26.6 L MCH MCHC 30.8 L RDW 15.5 H MPV Neut % (Auto) 78.2 H Lymph % (Auto) 12.0 L Lymph # (Auto) 0.73 L Potassium 3.2 L Carbon Dioxide 21 L BUN 3 L Creatinine Calcium 8.1 L Phosphorus 2.4 L AST 42 H Total Protein 5.3 L Albumin 2.8 L 04/22/21 04/22/21 04/21/21 05:42 05:42 05:15 RBC 3.14 L Hgb 8.3 L Hct 27.4 L MCH MCHC 30.3 L RDW 15.4 H MPV 10.5 H Neut % (Auto) 80.0 H Lymph % (Auto) 11.1 L Lymph # (Auto) 0.63 L Potassium 2.9 L* Carbon Dioxide 20 L 21 L BUN 4 L Creatinine 0.5 L 0.5 L Calcium 7.8 L 8.1 L Phosphorus AST 41 H Total Protein 5.2 L 5.2 L Albumin 2.8 L 2.7 L 04/21/21 05:15 RBC 3.29 L Hgb 8.4 L Hct 28.1 L MCH 25.5 L MCHC 29.9 L RDW 15.1 H MPV Neut % (Auto) Lymph % (Auto) 13.3 L Lymph # (Auto) 0.81 L Potassium Carbon Dioxide BUN Creatinine Calcium Phosphorus AST Total Protein Albumin Meds: Medications Acetaminophen (Acetaminophen 325 Mg Tablet) 650 mg PO Q6HP PRN; Protocol PRN Reason: Per Pain Protocol/Fever > 101 Sodium Chloride (Sodium Chloride 0.9%) 1,000 mls @ 100 mls/hr IV .Q10H [facility] Last Admin: 04/23/21 02:43 Dose: 100 mls/hr Documented by: Magnesium Sulfate (Magnesium Sulfate) 2 gm in 50 mls @ 50 mls/hr IV UD PRN PRN Reason: Magnesium </= 1.6 Potassium Chloride 20 meq/ (Dextrose) 260 mls @ 130 mls/hr IV UD PRN PRN Reason: other Last Admin: 04/23/21 10:59 Dose: 130 mls/hr Documented by: Potassium Chloride 40 meq/ (Dextrose) 520 mls @ 130 mls/hr IV UD PRN PRN Reason: Potassium < 3 Last Infusion: 04/22/21 20:19 Dose: Infused Documented by: Sodium Chloride (Sodium Chloride 0.9%) 250 mls @ 20 mls/hr IV .[id number] [facility] Stop: 04/23/21 22:59 Metoclopramide HCl (Metoclopramide 10 Mg/2 Ml Vial) 10 mg IV Q6HP PRN PRN Reason: Nausea And Vomiting Morphine Sulfate (Morphine 2 Mg/Ml Vial) 2 mg IV Q4HP PRN; Protocol PRN Reason: Per Pain Protocol Ondansetron HCl (Ondansetron 4 Mg/2 Ml Vial) 4 mg IV Q4HP PRN PRN Reason: Nausea And Vomiting Pantoprazole Sodium (Pantoprazole 40 Mg Vial) 40 mg IV BIDAC [facility] Last Admin: 04/23/21 06:57 Dose: 40 mg Documented by: Polyethylene Glycol/Electrolytes (Peg 3350/Na Sulf,Bicarb,Cl/Kcl 4,000 Ml Oral.) 4,000 ml PO ONCE [facility] Last Admin: 04/22/21 18:45 Dose: Not Given Documented by: Potassium Chloride (Potassium Chloride 20 Meq Tablet) 40 meq PO UD PRN PRN Reason: Potssium is 3-3.5 Potassium Chloride (Potassium Chloride 20 Meq Tablet) 40 meq PO UD PRN PRN Reason: Potassium < 3 Promethazine HCl (Promethazine 25 Mg/Ml Vial) 12.5 mg IV Q6HP PRN PRN Reason: Nausea And Vomiting Senna (Sennosides 8.8 Mg/5 Ml Ml) 52.8 mg PT ONCE [facility] Last Admin: 04/22/21 18:46 Dose: Not Given Documented by: Simethicone (Simethicone 80 Mg Tab.Chew) 80 mg CHEWED QIDP PRN PRN Reason: Dyspepsia Sodium Biphosphate/Sodium Phosphate (Fleets Adult Enema) 2 dose MT ONCE PRN PRN Reason: Bowel Prep Sodium Chloride (0.9 % Sodium Chloride 10 Ml Syringe) 10 ml IV Q8 [facility] Last Admin: 04/23/21 05:17 Dose: Not Given Documented by: A/P Assessment and plan (1) Left leg DVT: Status: Acute Qualifiers: Affected thrombotic vein of extremity: other lower extremity vein Chronicity: acute Qualified Code(s): I82.492 - Acute embolism and thrombosis of other specified deep vein of left lower extremity (2) Anemia: Status: Acute Qualifiers: Anemia type: unspecified type Qualified Code(s): D64.9 - Anemia, unspecified (3) Acute upper gastrointestinal hemorrhage: Status: Acute (4) Mass of hepatic flexure of colon: Status: Acute Narrative A/P Narrative: Assessment and Plans: 1. Upper GI bleeding with associated anemia, complicated by hepatic flexure colonic mass: Stays in inpatient med surg s/p EGD by Dr. Brandon on 04/19, found bleeding Rajesh's ulcers s/p repeat EGD by Dr. Brandon on 04/20, no new/recurrent source of bleeding s/p colonoscopy on 04/21, could not advance the scope pass the tumor at hepatic flexure General surgeon Dr. Wilkerson decided to proceed with tumor/bowel resection on NPO with IV NS@100cc/hr PPI BID. When discharge, will switch to oral PPI BID for 30 days then daily cbc w/ auto diff daily to trend H/H Hemoglobin 8.3-->8.2. Dr. Wilkerson decide to give 1 unit pRBC transfusion today as part of the pre-op measures 2. h/o left leg DVT: Continue to hold Eliquis for planned surgery, see #1 GI ppx: PPI BID DVT ppx: SCDs Code status: Full Prognosis: Stable Disposition: Stays in inpatient med surg Time Spent With Patient Time: Total time spent is greater than 50% in coordination of care (as documented) at patient's floor/unit and/or counseling patient: QUALITY VTE Deep Vein Thrombosis/Pulmonary Embolism Present on Admission: No
[2021-04-23] MEDS: PEG 3350/NA SULF,BICARB,CL/KCL 4,000 ML ORAL.SOL PO SCH (23:51)
[2021-04-23] MEDS: SENNOSIDES 8.8 MG/5 ML ML PT SCH (23:51)
[2021-04-24] MEDS: 0.9 % SODIUM CHLORIDE 10 ML SYRINGE IV SCH ×3 (04:39→21:56)
[2021-04-24] MEDS: 0.9 % SODIUM CHLORIDE 1,000 ML IV SCH ×3 (04:44→15:09)
[2021-04-24 07:15] LABS: Basophils # (Auto) 0.03 K/mcL (0.00-0.30); Basophils % (Auto) 0.4 % (0.0-2.0); Eosinophils % (Auto) 1.4 % (0.0-7.0); Hematocrit 32.9 % (34.1-44.9); Hemoglobin 10.3 g/dL (11.2-15.7); Lymphocytes # (Auto) 0.69 K/mcL (1.50-4.80); Mean Cell Volume 86.4 fL (80.0-100.0); Mean Corpuscular HGB Conc 31.3 g/dL (31.0-36.0); Mean Platelet Volume 9.7 fL (7.4-10.4); Monocytes # (Auto) 0.57 K/mcL (0.10-0.90); Monocytes % (Auto) 8.3 % (1.0-12.0); Neutrophils % (Auto) 79.9 % (38.0-78.0); Platelet Count 233 K/mcL (140-440); RBC 3.81 M/mcL (3.59-5.38); Red Cell Distribution Width 15.2 % (11.5-14.5); WBC 6.9 K/mcL (4.5-11.0)
[2021-04-24] MEDS: PANTOPRAZOLE 40 MG VIAL IV SCH ×2 (07:23→17:12)
[2021-04-24 07:45] LABS: ALT/SGPT 27 U/L (<40); AST/SGOT 31 U/L (<32); Albumin/Globulin Ratio 1.3 (1.0-2.3); Alkaline Phosphatase 74 U/L (39-117); Bilirubin,Total 0.4 mg/dL (0.1-1.0); Blood Urea Nitrogen 4 mg/dL (8-23); Calcium 8.2 mg/dL (8.6-10.4); Carbon Dioxide 19 mmol/L (22-30); Chloride 105 mmol/L (96-108); Globulin 2.4 gm/dL (2.2-3.7); Glomerular Filtration Rate 84; Glucose 65 mg/dL (70-105)
[2021-04-24] MEDS ORDERED: IPRATROPIUM/ALBUTEROL 3 ML AMPUL.NEB NEB PRN ×2 (08:00→13:51)
[2021-04-24] MEDS ORDERED: SCOPOLAMINE 1 PATCH PATCH TOPICAL PRN (08:00)
[2021-04-24] MEDS ORDERED: ALBUMIN HUMAN 25 GM/100 ML BAG IV ONE (09:09)
[2021-04-24] MEDS: POTASSIUM CHLORIDE 20 MEQ in DEXTROSE 5% IN WATER 250 ML IV PRN (09:33)
--- NOTE | 2021-04-24 10:43 | Internal Med Progress Note ---
SUBJECTIVE Subjective Patient information: Note initiated : 04/24/21 at 10:39 am Service Date, if different from initiated Date: [] Patient: Hector Chadwick a 80 y/o F admitted on 04/18/21 for bloody emesis. Chief Complaint: [GI bleeding] Interval history: History of present illness: Ms. Chadwick is a 80 year old F Presents the ED with hematemesis. Patient has a history of DVT on Eliquis her old home medication does list ibuprofen but she says she does not take that. She woke up yesterday feeling fine and then in the afternoon she started having a little bit of an upset stomach and the pain worsened into the night and it was a sharp and burning pain nonradiating. She had an episode of nausea vomiting last night. She could not sleep very well because of the pain. This morning she had another episode nausea vomiting described as dark coffee-g round emesis. And then she had a large episode of diarrhea of dark stool. She was significantly lightheaded and when she got up to walk she almost passed out and could not walk very far because of weakness as well. Patient denies chest pain or shortness of breath In the ED she had a hemoglobin of 9 and it was 11 few weeks prior. Blood pressures have been in the 90s to low 100s she did have a systolic of 79 at one reading. She is also tachycardic 120s one-point Dr. Phipps was contacted to perform EGD. EGD performed found a small hiatal hernia and several Darrion lesions. Recommendations were for lifelong PPI. 04/19 Patient still feels quite weak but much better than when she came in. Did have some dark liquid stool last night likely residual. 04/20: Continued to have black stools. Denies nausea vomiting or hematemesis. H/H: 9.1/30.0-->8.0/26.9. c/o intermittent, crampy epigastric and RUQ abdominal pain, 11/21. c/o headache. 04/21: s/p repeat EGD by GI yesterday, no new/recurrent source of bleeding identified. H/H stable. Denies abdominal pain. Denies chest pain. Denies nausea vomiting hematemesis constipation or diarrhea. One episode of black stool overnight. 04/22: s/p colonoscopy on 04/21, could not advance the scope pass the tumor at hepatic flexure. General surgeon Dr. Wilkerson decided to proceed with tumor/bowel resection on . NPO for the time being. Serum potassium level 2.9. Denies any fever or chills. Denies any nausea or vomiting. Still have black stools. Denies any abdominal pain. 04/23: Hemoglobin 8.3-->8.2. Dr. Wilkerson decide to give 1 unit pRBC transfusion today as part of the pre-op measures. Denies any abdominal pain. Denies any nausea or vomiting. Denies any fever or chills. 04/24: H/H stable. Surgery by Dr. Wilkerson for planned colonic tumor resection this morning. Constitutional Vitals: Vital Signs Temp Pulse Resp BP Pulse Ox 36.8 C 70 20 155/85 97 04/24/21 08:00 04/24/21 08:00 04/24/21 08:00 04/24/21 08:00 04/24/21 08:00 Period Temp Pulse Resp BP Sys/St Pulse Ox Last 24 Hr 36.3 C-36.8 C 70-79 16-20 136-159/70-86 96-98 Intake and Output 04/23/21 04/24/21 04/24/21 21:59 05:59 13:59 Intake Total 0 1000 Output Total 700 1100 325 Balance -700 -100 -325 Weight 83.518 kg Intake & Output: Intake & Output 04/23/21 04/24/21 04/24/21 21:59 05:59 13:59 Intake Total 0 1000 Output Total 700 1100 325 Balance -700 -100 -325 Weight 83.518 kg Intake: IV 1000 Sodium Chloride 0.9% 1,000 ml @ 1000 100 mls/hr IV .Q10H [facility] Rx#: [id number] Oral 0 Output: Void Amount 700 1100 325 Other: Urine Appearance Clear Clear Clear Urine Color Pale Pale Urine Odor Normal Normal Normal Stool Size Moderate Small Stool Color Brown Brown Stool Consistency Liquid # Voids 1 # Bowel Movements 1 General appearance: cooperative and no acute distress Head Head exam: Present atraumatic and normocephalic Eye Eye exam: Present EOMI and PERRL ENT ENT exam: Present mucous membranes moist, normal exam and normal external ear exam Neck Neck exam: Present normal inspection; Absent lymphadenopathy, tenderness and thyromegaly Respiratory Respiratory exam: Absent accessory muscle use, respiratory distress and wheezes Cardiovascular Cardiovascular exam: Present normal rate and rhythm; Absent JVD GI/Abdominal GI/Abdominal exam: Present normal bowel sounds and soft; Absent organomegaly and tenderness Extremities Exam Extremities exam: Present full ROM, normal capillary refill and normal inspection; Absent tenderness Neurological Exam Neurological exam: Present alert, CN II-XII intact and oriented X3; Absent motor sensory deficit Psychiatric Psychiatric exam: Present normal affect and normal mood; Absent anxious and depressed Skin Skin exam: Present dry and intact OBJ DATA Labs CBC & Chem 7: 04/24/21 05:40 04/24/21 05:40 Labs: Abnormal Lab Results 04/24/21 04/24/21 04/23/21 05:40 05:40 05:26 RBC 3.13 L Hgb 10.3 L 8.2 L Hct 32.9 L 26.6 L MCHC 30.8 L RDW 15.2 H 15.5 H MPV Neut % (Auto) 79.9 H 78.2 H Lymph % (Auto) 10.0 L 12.0 L Lymph # (Auto) 0.69 L 0.73 L Potassium 3.0 L Carbon Dioxide 19 L BUN 4 L Creatinine Glucose 65 L Calcium 8.2 L Phosphorus AST Total Protein 5.4 L Albumin 3.0 L 04/23/21 04/22/21 04/22/21 05:25 05:42 05:42 RBC Hgb Hct MCHC RDW MPV Neut % (Auto) Lymph % (Auto) Lymph # (Auto) Potassium 3.2 L 2.9 L* Carbon Dioxide 21 L 20 L BUN 3 L 4 L Creatinine 0.5 L Glucose Calcium 8.1 L 7.8 L Phosphorus 2.4 L AST 42 H 41 H Total Protein 5.3 L 5.2 L Albumin 2.8 L 2.8 L 04/22/21 05:42 RBC 3.14 L Hgb 8.3 L Hct 27.4 L MCHC 30.3 L RDW 15.4 H MPV 10.5 H Neut % (Auto) 80.0 H Lymph % (Auto) 11.1 L Lymph # (Auto) 0.63 L Potassium Carbon Dioxide BUN Creatinine Glucose Calcium Phosphorus AST Total Protein Albumin Meds: Medications Acetaminophen (Acetaminophen 325 Mg Tablet) 650 mg PO Q6HP PRN; Protocol PRN Reason: Per Pain Protocol/Fever > 101 Albuterol/Ipratropium (Ipratropium/Albuterol 3 Ml Ampul.Neb) 3 ml NEB ONCE PRN PRN Reason: Shortness Of Breath Stop: 04/24/21 18:00 Sodium Chloride (Sodium Chloride 0.9%) 1,000 mls @ 100 mls/hr IV .Q10H [facility] Last Admin: 04/24/21 07:22 Dose: Not Given Documented by: Magnesium Sulfate (Magnesium Sulfate) 2 gm in 50 mls @ 50 mls/hr IV UD PRN PRN Reason: Magnesium </= 1.6 Potassium Chloride 20 meq/ (Dextrose) 260 mls @ 130 mls/hr IV UD PRN PRN Reason: other Last Admin: 04/24/21 09:33 Dose: 125 mls/hr Documented by: Potassium Chloride 40 meq/ (Dextrose) 520 mls @ 130 mls/hr IV UD PRN PRN Reason: Potassium < 3 Last Infusion: 04/22/21 20:19 Dose: Infused Documented by: Metoclopramide HCl (Metoclopramide 10 Mg/2 Ml Vial) 10 mg IV Q6HP PRN PRN Reason: Nausea And Vomiting Morphine Sulfate (Morphine 2 Mg/Ml Vial) 2 mg IV Q4HP PRN; Protocol PRN Reason: Per Pain Protocol Ondansetron HCl (Ondansetron 4 Mg/2 Ml Vial) 4 mg IV Q4HP PRN PRN Reason: Nausea And Vomiting Pantoprazole Sodium (Pantoprazole 40 Mg Vial) 40 mg IV BIDAC [facility] Last Admin: 04/24/21 07:23 Dose: 40 mg Documented by: Potassium Chloride (Potassium Chloride 20 Meq Tablet) 40 meq PO UD PRN PRN Reason: Potssium is 3-3.5 Potassium Chloride (Potassium Chloride 20 Meq Tablet) 40 meq PO UD PRN PRN Reason: Potassium < 3 Promethazine HCl (Promethazine 25 Mg/Ml Vial) 12.5 mg IV Q6HP PRN PRN Reason: Nausea And Vomiting Scopolamine (Scopolamine 1 Patch Patch) 1 patch TOPICAL PREOP PRN PRN Reason: Nausea And Vomiting Stop: 04/24/21 18:00 Senna (Sennosides 8.8 Mg/5 Ml Ml) 52.8 mg PT ONCE [facility] Last Admin: 04/23/21 23:51 Dose: Not Given Documented by: Simethicone (Simethicone 80 Mg Tab.Chew) 80 mg CHEWED QIDP PRN PRN Reason: Dyspepsia Sodium Biphosphate/Sodium Phosphate (Fleets Adult Enema) 2 dose ND ONCE PRN PRN Reason: Bowel Prep Sodium Chloride (0.9 % Sodium Chloride 10 Ml Syringe) 10 ml IV Q8 [facility] Last Admin: 04/24/21 04:39 Dose: Not Given Documented by: A/P Assessment and plan (1) Left leg DVT: Status: Acute Qualifiers: Affected thrombotic vein of extremity: other lower extremity vein Chronicity: acute Qualified Code(s): I82.492 - Acute embolism and thrombosis of other specified deep vein of left lower extremity (2) Anemia: Status: Acute Qualifiers: Anemia type: unspecified type Qualified Code(s): D64.9 - Anemia, unspecified (3) Acute upper gastrointestinal hemorrhage: Status: Acute (4) Mass of hepatic flexure of colon: Status: Acute Narrative A/P Narrative: Assessment and Plans: 1. Upper GI bleeding with associated anemia, complicated by hepatic flexure colonic mass: Stays in inpatient med surg s/p EGD by Dr. Brandon on 04/19, found bleeding Rajesh's ulcers s/p repeat EGD by Dr. Brandon on 04/20, no new/recurrent source of bleeding s/p colonoscopy on 04/21, could not advance the scope pass the tumor at hepatic flexure H/H stable. Surgery by Dr. Wilkerson for planned colonic tumor resection this mo rning. NPO with IV NS@100cc/hr PPI BID. When discharge, will switch to oral PPI BID for 30 days then daily cbc w/ auto diff daily to trend H/H 2. h/o left leg DVT: Continue to hold Eliquis for planned surgery, see #1 GI ppx: PPI BID DVT ppx: SCDs Code status: Full Prognosis: Stable Disposition: Stays in inpatient med surg Time Spent With Patient Time: Total time spent is greater than 50% in coordination of care (as documented) at patient's floor/unit and/or counseling patient: QUALITY VTE Deep Vein Thrombosis/Pulmonary Embolism Present on Admission: No
[2021-04-24] MEDS ORDERED: PIPERACILLIN SODIUM/TAZOBACTAM 3.375 GM in DEXTROSE 5% IN WATER 50 ML IV SCH (10:45)
[2021-04-24] MEDS ORDERED: ONDANSETRON 4 MG/2 ML VIAL IV PRN (13:51)
[2021-04-24] MEDS ORDERED: fentaNYL 100 MCG/2 ML VIAL IV PRN (13:51)
[2021-04-24] MEDS ORDERED: NALOXONE HCL 0.4 MG/ML VIAL IV PRN (13:51)
[2021-04-24] MEDS ORDERED: HYDROmorphone 0.5 MG/0.5 ML SYRINGE IV PRN (13:51)
[2021-04-24] MEDS ORDERED: MEPERIDINE 25 MG/ML VIAL IV PRN (13:51)
[2021-04-24] MEDS ORDERED: ACETAMINOPHEN 1,000 MG/100 ML BAG IV ONE (13:51)
[2021-04-24] MEDS ORDERED: LACTATED RINGERS 250 ML IV PRN (13:51)
[2021-04-24] MEDS ORDERED: diphenhydrAMINE 50 MG/ML VIAL IV PRN (13:51)
[2021-04-24] MEDS ORDERED: LACTATED RINGERS 1,000 ML IV SCH (14:00)
[2021-04-24] MEDS ORDERED: BACITRACIN TOPICAL OINT 15 GM TUBE TOPICAL ONE (14:24)
--- NOTE | 2021-04-24 14:31 | Brief Operative Note ---
Brief Operative Note Date of procedure: 04/24/21 Pre-op diagnosis: Obstructing Right Colon Cancer Post-op diagnosis: same Procedure: Ex Lap, Lysis of Adhesions, Right Hemicolectomy Grafts/Implants: No Anesthesia: GETA Findings: large exophytic mass of the right colon and hepatic flexure occupying much of the colon Complications: none Surgeon: Selvin Wilkerson Estimated blood loss (cc): 75 Specimens Removed/Pathology: other (Right Colon, Hepatic Flexure, Proximal Transverse Colon with Tumor and Terminal Ileum en block ) Condition: stable Disposition: PACU
[2021-04-24] MEDS ORDERED: ceFAZolin 2 GM in DEXTROSE 5% IN WATER 50 ML IV SCH (16:00)
[2021-04-24] MEDS: DEXTROSE 5%-LR 1,000 ML IV SCH (16:08)
[2021-04-24] MEDS: ceFAZolin 1 GM VIAL IV SCH (17:13)
[2021-04-24] MEDS ORDERED: oxyCODONE HCL 5 MG TABLET PO PRN (18:58)
[2021-04-24] MEDS: morphine 2 MG/ML VIAL IV PRN (19:28)
[2021-04-24] MEDS: SENNOSIDES 8.8 MG/5 ML ML PT SCH (20:26)
[2021-04-25] MEDS: ceFAZolin 1 GM VIAL IV SCH ×2 (00:28→10:37)
[2021-04-25] MEDS: morphine 2 MG/ML VIAL IV PRN ×3 (00:30→12:52)
[2021-04-25] MEDS: DEXTROSE 5%-LR 1,000 ML IV SCH ×4 (01:18→21:30)
[2021-04-25] MEDS: 0.9 % SODIUM CHLORIDE 10 ML SYRINGE IV SCH ×3 (05:06→21:32)
[2021-04-25] MEDS: PANTOPRAZOLE 40 MG VIAL IV SCH ×2 (08:11→16:45)
[2021-04-25 08:26] LABS: ALT/SGPT 23 U/L (<40); AST/SGOT 27 U/L (<32); Albumin 3.1 gm/dL (3.2-5.2); Albumin/Globulin Ratio 1.3 (1.0-2.3); Alkaline Phosphatase 70 U/L (39-117); Bilirubin,Total 0.4 mg/dL (0.1-1.0); Blood Urea Nitrogen 6 mg/dL (8-23); Calcium 8.6 mg/dL (8.6-10.4); Carbon Dioxide 21 mmol/L (22-30); Chloride 102 mmol/L (96-108); Globulin 2.4 gm/dL (2.2-3.7); Glomerular Filtration Rate 80; Glucose 186 mg/dL (70-105)
[2021-04-25 08:28] LABS: Basophils # (Auto) 0.02 K/mcL (0.00-0.30); Basophils % (Auto) 0.2 % (0.0-2.0); Eosinophils # (Auto) 0 K/mcL (0.00-0.70); Eosinophils % (Auto) 0 % (0.0-7.0); Lymphocytes # (Auto) 0.57 K/mcL (1.50-4.80); Lymphocytes % (Auto) 4.4 % (15.5-49.0); Mean Cell Volume 85.3 fL (80.0-100.0); Mean Corpuscular HGB Conc 30.6 g/dL (31.0-36.0); Monocytes % (Auto) 9.2 % (1.0-12.0); Neutrophils % (Auto) 86.2 % (38.0-78.0); Platelet Count 303 K/mcL (140-440); RBC 4.22 M/mcL (3.59-5.38); Red Cell Distribution Width 15.3 % (11.5-14.5); WBC 13.1 K/mcL (4.5-11.0)
--- NOTE | 2021-04-25 09:06 | Operative Note ---
DATE OF OPERATION: 04/24/2021 PREOPERATIVE DIAGNOSIS: Obstructing hepatic flexure mass. POSTOPERATIVE DIAGNOSIS: Obstructing hepatic flexure mass. OPERATIVE PROCEDURE PERFORMED: 1. Exploratory laparoscopy. 2. Extensive lysis of adhesions. 3. Right hemicolectomy with en bloc resection of the terminal ileum and the large obstructing hepatic flexure colonic mass. SURGEON: Selvin Wilkerson MD ANESTHESIA: General. MEDICATIONS: Zosyn 3.375 g IV. INDICATIONS: The patient is an 80-year-old female who was seen in consultation several days ago after she had been admitted to the hospital for an episode of what was felt to be upper GI bleeding. She underwent upper and lower endoscopy and around that same time had a CT scan, all of which demonstrated a mass in the distal right and proximal transverse colons encompassing the hepatic flexure. Lesion was felt to be fairly obstructive. The scope could not be advanced passed it endoscopically and we were asked to see her in consultation for surgery. Surgery was recommended given the obstructive nature of the mass and the fact that this was almost certainly adenocarcinoma of the colon, although biopsy results were still pending at the time of this procedure. Risks, benefits, potential complications and alternative treatment options were all discussed with her at length. These included but are not limited to bleeding, infection, cosmetic dissatisfaction, abnormal scarring, injury to surrounding structures, bleeding, infection, anastomotic leak, ureteral injury, duodenal injury and other issues as well. She gave full informed consent and understood the nature of the procedure, the risks that were adherent to it. We discussed with her at length that we do not really feel there were any additional treatment options for her. She had a near complete obstruction of the colon at the hepatic flexure and something certainly had to be done interventionally to be compatible with her doing well from this point forward. So, this is what was recommended for and she wished to undergo the procedure and we agreed with the indications for that. DESCRIPTION OF PROCEDURE: The patient was taken to the operating room and placed supine on the OR table, placed under general anesthesia and intubated. Bilateral SCDs were applied. All pressure sensitive areas were carefully padded. A Miller catheter was placed, as was a nasogastric tube. Arms were positioned comfortably on arm boards. All pressure sensitive areas were carefully padded and the entire OR team worked to position her comfortably on the table. The abdomen was then widely prepped and draped in a sterile fashion. Procedure began with a vertical midline incision extending from just below the xiphoid process to passed the level of the umbilicus. We then dissected down to the abdominal wall fascia along the full length of the incision. We then opened up the peritoneum sharply and entered the peritoneal cavity. This incision was then extended to the full length of the incision. I was able to visualize the area of the tumor in the right upper abdomen, it did not appear to be adherent to the overlying abdominal wall, which had been a concern previously. There were several areas of dense adhesion between the omentum and the left anterior abdominal wall; however, and these were taken down sharply under direct vision to allow for adequate positioning for the self-retaining retractor to be brought in the field. The Omni was then brought into the field and positioned appropriately and then working diligently we were able to gain good exposure to the right abdomen and the tumor mass and also the small bowel, which as we ran the small bowel from the ligament of Treitz down to the level of the ileocecal valve and terminal ileum, was discovered to be densely adherent to the pelvis and presumably an area of prior hysterectomy . With some difficulty and under direct vision, these were sharply taken down and gradually working for about 20 minutes. I was able to get the small bowel freed up and delivered up out of the pelvis, so that we had adequate mobilization of the bowel to complete the rest of the procedure. Once this was completed, we then went ahead and began to mobilize the right colon, taking down the white line of Toldt in the right pericolic gutter and continuing this dissection towards the hepatic flexure. As we approached the hepatic flexure, the duodenum was identified and swept down and away. I then went ahead and entered the lesser sac after seeing that clearly the involved omentum in this area of the colon would have to be resected en bloc and removed so to this point, I went ahead and identified the right gastroepiploic artery and vein and then proceeding just below that entered the lesser sac and fully liberated the stomach off the omentum in this area to facilitate removal and better access to the transverse mesocolon. Once this was complete, we were then able to go ahead and connect the areas of dissection, working from the area where we previously dissected out the hepatic flexure and then working from the lesser sac along the medial aspect of the stomach and the duodenum. I was able to go ahead and fully elevate this off and away and connect these points of dissection and thus fully mobilized the hepatic flexure and the colon away from this area. At this point, I felt I was ready to go ahead and transect the small bowel proximal to the colon. I examined the area of the bowel that had been mobilized up out of the pelvis and felt that there were several areas of possible deserosalization to the point that I felt it was best just to include it in the resection itself, so I proceeded a little bit further proximally along the small bowel to remove roughly 10-15 cm portion of the terminal ileum en bloc with the right colon. We then circumferentially dissected out and transected the small bowel here with a single firing of the OSCAR-75 stapler and then took down the mesentery over to the colon using primarily the LigaSure device and also sequential firings of the endovascular 35 mm OSCAR for the ileocolic vascular pedicle. We then continued the dissection over to the bare area adjacent to the duodenum and at this point had taken down both the ileocolic and the right colic artery and vein and the specimen was at this point vascularized only by the residual middle colic vessels. These were dissected out and then transected sequentially with the LigaSure device without difficulty. We then went ahead and chose of point of distal transection in the mid transverse colon that was at least 5 cm downstream from the grossly evident tumor. We circumferentially dissected the colon out here and then, after assuring a strong arterial pulse in the adjacent mesocolon, transected it with a single firing of the OSCAR-75 stapler as well and fully liberated the specimen. A fresh frozen examination was not available, but we had over 5 cm of grossly negative margin from the point of most proximal tumor and I felt that we had adequate length of normal colon to assure a distally negative margin. The specimen was thus removed in its entirety. The distal margin was marked with a single 3-0 silk stitch and was sent to pathology for permanent inspection. We then irrigated the area out, made sure there was no active bleeding or hemorrhage and then brought the proximal small bowel adjacent to the distal colon, and made preparations for a [id number] functional end-to-end anastomosis. We sharply removed the antimesenteric staple lines from both the proximal and distal bowel and then utilizing the OSCAR-75 stapler introduced the two arms of the stapler into the bowel and then brought them together to create a functional end-to-end [id number] anastomosis once the stapler was fired. We then closed the common channel enterotomy utilizing another firing of the stapler after bringing these together with small Allis clamps and elevated, and away from the underlying anastomosis. We then positioned the OSCAR-75 across the base of this and fired a final time to resect the common channel enterotomy to close this off. This was inspected on the back table and found to be intact and sent to pathology as additional proximal and distal margins. We then examined the anastomosis itself. It appeared to be widely patent and extremely well vascularized. We then utilized interrupted 3-0 silk sutures to oversew the corners of the staple lines. I also placed several sutures at the crotch of the anastomosis to take any tension off of this area. The anastomosis appeared to be properly oriented, well vascularized and widely patent. The area was irrigated out extensively. I then ran the small bowel from the anastomosis up to the level of the ligament of Treitz without difficulty. I elected to not close the mesenteric defect. I then brought a 15-Jordanian round VAHID drain into the abdomen through a separate stab incision in the mid lateral abdomen, secured it in place with a 3-0 silk stitch and positioned adjacent to the anastomosis without difficulty. The omentum was then positioned over the anastomosis as well. We then made sure sponge, needle and instrument counts were correct. I checked the position of the NG tube. We made preparations for closure. After assuring there was no active bleeding or hemorrhage, the wound was then closed in layers with running looped 0 PDS from above and below, closed the fascia in its entirety and then these were tied together at their meeting points in the upper abdomen. We then extensively irrigated out the subcutaneous tissues and then closed the incision with marnie. Bacitracin ointment and a sterile dressing was applied. The patient was awakened, extubated, and transferred to PACU in satisfactory condition. There were no apparent complications or issues. Sponge, needle and instrument counts were correct. Findings were discussed above. ESTIMATED BLOOD LOSS: Roughly 75 mL. DRAINS: A single 10-Jordanian round VAHID drain. FINDINGS: As discussed above. COMPLICATIONS: None apparent. INSTRUMENT COUNTS: Sponge, needle and instrument counts were correct. BW:artem Job ID: [id number] Doc ID: [id number] Selvin Wilekrson M.D. [facility]
[2021-04-25] MEDS: BENZOCAINE/MENTHOL 1 LOZENGE PO PRN ×2 (10:33→16:45)
--- NOTE | 2021-04-25 12:05 | Internal Med Progress Note ---
SUBJECTIVE Subjective Patient information: Note initiated : 04/25/21 at 11:58 am Service Date, if different from initiated Date: [] Patient: Hector Chadwick a 80 y/o F admitted on 04/18/21 for bloody emesis. Chief Complaint: [GI bleeding] Interval history: History of present illness: Ms. Chadwick is a 80 year old F Presents the ED with hematemesis. Patient has a history of DVT on Eliquis her old home medication does list ibuprofen but she says she does not take that. She woke up yesterday feeling fine and then in the afternoon she started having a little bit of an upset stomach and the pain worsened into the night and it was a sharp and burning pain nonradiating. She had an episode of nausea vomiting last night. She could not sleep very well because of the pain. This morning she had another episode nausea vomiting described as dark coffee-g round emesis. And then she had a large episode of diarrhea of dark stool. She was significantly lightheaded and when she got up to walk she almost passed out and could not walk very far because of weakness as well. Patient denies chest pain or shortness of breath In the ED she had a hemoglobin of 9 and it was 11 few weeks prior. Blood pressures have been in the 90s to low 100s she did have a systolic of 79 at one reading. She is also tachycardic 120s one-point Dr. Phipps was contacted to perform EGD. EGD performed found a small hiatal hernia and several Darrion lesions. Recommendations were for lifelong PPI. 04/19 Patient still feels quite weak but much better than when she came in. Did have some dark liquid stool last night likely residual. 04/20: Continued to have black stools. Denies nausea vomiting or hematemesis. H/H: 9.1/30.0-->8.0/26.9. c/o intermittent, crampy epigastric and RUQ abdominal pain, 11/21. c/o headache. 04/21: s/p repeat EGD by GI yesterday, no new/recurrent source of bleeding identified. H/H stable. Denies abdominal pain. Denies chest pain. Denies nausea vomiting hematemesis constipation or diarrhea. One episode of black stool overnight. 04/22: s/p colonoscopy on 04/21, could not advance the scope pass the tumor at hepatic flexure. General surgeon Dr. Wilkerson decided to proceed with tumor/bowel resection on . NPO for the time being. Serum potassium level 2.9. Denies any fever or chills. Denies any nausea or vomiting. Still have black stools. Denies any abdominal pain. 04/23: Hemoglobin 8.3-->8.2. Dr. Wilkerson decide to give 1 unit pRBC transfusion today as part of the pre-op measures. Denies any abdominal pain. Denies any nausea or vomiting. Denies any fever or chills. 04/24: H/H stable. Surgery by Dr. Wilkerson for planned colonic tumor resection this morning. 04/25: s/p right hemicolectomy with primary re-anastomosis by Dr. Wilkerson on 04/24. NG and VAHID drain placement. Afebrile overnight. Room air. c/o 3/10 diffused ab dominal pain. c/o sore throat. Denies nausea vomiting. Denies fever chills or sweating. Denies SOB. On ice chips. Constitutional Vitals: Vital Signs Temp Pulse Resp BP Pulse Ox 36.8 C 97 H 19 135/74 93 04/25/21 11:31 04/25/21 11:31 04/25/21 11:31 04/25/21 11:31 04/25/21 11:31 Period Temp Pulse Resp BP Sys/St Pulse Ox Last 24 Hr 36.6 C-37.6 C 84-106 10- 101-149/58-79 92-100 Intake and Output 04/24/21 04/25/21 04/25/21 21:59 05:59 13:59 Intake Total 1212 1000 0 Output Total 1200 575 Balance 12 425 0 Weight 85.366 kg Intake & Output: Intake & Output 04/24/21 04/25/21 04/25/21 21:59 05:59 13:59 Intake Total 1212 1000 0 Output Total 1200 575 Balance 12 425 0 Weight 85.366 kg Intake: IV 1212 1000 Sodium Chloride 0.9% 1,000 ml @ 1112 100 mls/hr IV .Q10H [facility] Rx#: [id number] Dextrose 5%-Lactated Ringers 1, 1000 000 ml @ 100 mls/hr IV .Q10H [facility] Rx#:[id number] Tube Feeding 0 0 0 Output: Gastric Drainage 150 Right Nare 150 Drainage 50 Right Lower VAHID Drain 50 Drainage 75 Right Lower VAHID Drain 75 Urine Catheter Amount 1125 375 Other: Urine Appearance Clear Clear Uretheral (Miller) Clear Urine Color Bright Yellow Dark Yellow Uretheral (Miller) Bright Yellow General appearance: cooperative and no acute distress Head Head exam: Present atraumatic and normocephalic Eye Eye exam: Present EOMI and PERRL ENT ENT exam: Present mucous membranes moist, normal exam and normal external ear exam Additional comments: NG tube in place Neck Neck exam: Present normal inspection; Absent lymphadenopathy, tenderness and thyromegaly Respiratory Respiratory exam: Absent accessory muscle use, respiratory distress and wheezes Cardiovascular Cardiovascular exam: Present normal rate and rhythm; Absent JVD GI/Abdominal GI/Abdominal exam: Present normal bowel sounds, soft, hypoactive bowel sounds and tenderness; Absent organomegaly Additional comments: Abdominal surgical wound with surgical dressing and abdominal binder in place VAHID drain in place Additional comments: Miller catheter in place Extremities Exam Extremities exam: Present full ROM, normal capillary refill and normal inspection; Absent tenderness Neurological Exam Neurological exam: Present alert, CN II-XII intact and oriented X3; Absent motor sensory deficit Psychiatric Psychiatric exam: Present normal affect and normal mood; Absent anxious and depressed Skin Skin exam: Present dry and intact OBJ DATA Labs CBC & Chem 7: 04/25/21 05:46 04/25/21 05:45 Labs: Abnormal Lab Results 04/25/21 04/25/21 04/24/21 05:46 05:45 05:40 WBC 13.1 H RBC Hgb 11.0 L Hct MCHC 30.6 L RDW 15.3 H Neut % (Auto) 86.2 H Lymph % (Auto) 4.4 L Lymph # (Auto) 0.57 L Gonzales # (Auto) 1.20 H Absolute Neutrophils 11.26 H Potassium 3.0 L Carbon Dioxide 21 L 19 L BUN 6 L 4 L Glucose 186 H 65 L Calcium 8.2 L Phosphorus AST Total Protein 5.5 L 5.4 L Albumin 3.1 L 3.0 L 04/24/21 04/23/21 04/23/21 05:40 05:26 05:25 WBC RBC 3.13 L Hgb 10.3 L 8.2 L Hct 32.9 L 26.6 L MCHC 30.8 L RDW 15.2 H 15.5 H Neut % (Auto) 79.9 H 78.2 H Lymph % (Auto) 10.0 L 12.0 L Lymph # (Auto) 0.69 L 0.73 L Gonzales # (Auto) Absolute Neutrophils Potassium 3.2 L Carbon Dioxide 21 L BUN 3 L Glucose Calcium 8.1 L Phosphorus AST 42 H Total Protein 5.3 L Albumin 2.8 L 04/22/21 05:42 WBC RBC Hgb Hct MCHC RDW Neut % (Auto) Lymph % (Auto) Lymph # (Auto) Gonzales # (Auto) Absolute Neutrophils Potassium Carbon Dioxide BUN Glucose Calcium Phosphorus 2.4 L AST Total Protein Albumin Meds: Medications Enoxaparin Sodium (Enoxaparin 30 Mg/0.3 Ml Syringe) 30 mg SQ BID [facility] Magnesium Sulfate (Magnesium Sulfate) 2 gm in 50 mls @ 50 mls/hr IV UD PRN PRN Reason: Magnesium </= 1.6 Potassium Chloride 20 meq/ (Dextrose) 260 mls @ 130 mls/hr IV UD PRN PRN Reason: other Last Infusion: 04/24/21 11:38 Dose: Infused Documented by: Potassium Chloride 40 meq/ (Dextrose) 520 mls @ 130 mls/hr IV UD PRN PRN Reason: Potassium < 3 Last Infusion: 04/22/21 20:19 Dose: Infused Documented by: Dextrose/Lactated Ringer's (Dextrose 5%-Lactated Ringers) 1,000 mls @ 100 mls/hr IV .Q10H [facility] Last Admin: 04/25/21 02:41 Dose: 100 mls/hr Documented by: Metoclopramide HCl (Metoclopramide 10 Mg/2 Ml Vial) 10 mg IV Q6HP PRN PRN Reason: Nausea And Vomiting Morphine Sulfate (Morphine 2 Mg/Ml Vial) 2 mg IV Q4HP PRN; Protocol PRN Reason: Per Pain Protocol Last Admin: 04/25/21 08:12 Dose: 2 mg Documented by: Ondansetron HCl (Ondansetron 4 Mg/2 Ml Vial) 4 mg IV Q4HP PRN PRN Reason: Nausea And Vomiting Oxycodone HCl (Oxycodone Hcl 5 Mg Tablet) 5 mg PO Q4-6HP PRN; Protocol PRN Reason: Per Pain Protocol Pantoprazole Sodium (Pantoprazole 40 Mg Vial) 40 mg IV BIDAC [facility] Last Admin: 04/25/21 08:11 Dose: 40 mg Documented by: Potassium Chloride (Potassium Chloride 20 Meq Tablet) 40 meq PO UD PRN PRN Reason: Potssium is 3-3.5 Potassium Chloride (Potassium Chloride 20 Meq Tablet) 40 meq PO UD PRN PRN Reason: Potassium < 3 Promethazine HCl (Promethazine 25 Mg/Ml Vial) 12.5 mg IV Q6HP PRN PRN Reason: Nausea And Vomiting Simethicone (Simethicone 80 Mg Tab.Chew) 80 mg CHEWED QIDP PRN PRN Reason: Dyspepsia Sodium Biphosphate/Sodium Phosphate (Fleets Adult Enema) 2 dose MT ONCE PRN PRN Reason: Bowel Prep Sodium Chloride (0.9 % Sodium Chloride 10 Ml Syringe) 10 ml IV Q8 [facility] Last Admin: 04/25/21 05:06 Dose: Not Given Documented by: Throat Lozenges (Benzocaine/Menthol 1 Lozenge) 1 lozenge PO PRN PRN PRN Reason: Sore Throat Last Admin: 04/25/21 10:33 Dose: 1 lozenge Documented by: A/P Assessment and plan (1) Left leg DVT: Status: Acute Qualifiers: Affected thrombotic vein of extremity: other lower extremity vein Chronicity: acute Qualified Code(s): I82.492 - Acute embolism and thrombosis of other specified deep vein of left lower extremity (2) Anemia: Status: Acute Qualifiers: Anemia type: unspecified type Qualified Code(s): D64.9 - Anemia, unspecified (3) Acute upper gastrointestinal hemorrhage: Status: Acute (4) Mass of hepatic flexure of colon: Status: Acute Narrative A/P Narrative: Assessment and Plans: 1. Upper GI bleeding with associated anemia, complicated by hepatic flexure colonic mass: Stays in inpatient med surg s/p EGD by Dr. Brandon on 04/19, found bleeding Rajesh's ulcers s/p repeat EGD by Dr. Brandon on 04/20, no new/recurrent source of bleeding s/p colonoscopy on 04/21, could not advance the scope pass the tumor at hepatic flexure s/p right hemicolectomy by Dr. Wilkerson on 04/24, s/p VAHID drain and NG tube placement Ice chips D5LR@100cc/hr PPI BID. When discharge, will switch to oral PPI BID for 30 days then daily Oxycodone PRN moderate pain Morphine IV PRN severe pain cbc w/ auto diff daily to trend H/H 2. h/o left leg DVT: Continue to hold Eliquis for planned surgery, see #1 GI ppx: PPI BID DVT ppx: Lovenox 30mg SQ BID Code status: Full Prognosis: Stable Disposition: Stays in inpatient med surg Time Spent With Patient Time: Total time spent is greater than 50% in coordination of care (as documented) at patient's floor/unit and/or counseling patient: QUALITY VTE Deep Vein Thrombosis/Pulmonary Embolism Present on Admission: No
--- NOTE | 2021-04-25 14:35 | Surgical Pathology Report ---
Histology Microscopic Diagnosis Specimen A- COLON, HEPATIC FLEXURE BIOPSY: --- GRANULATION TISSUE, SEE COMMENT. --- NO CARCINOMA IDENTIFIED BY PANCYTOKERATIN IMMUNOHISTOCHEMICAL STAIN (ADEQUATE TECHNICAL CONTROL). Comments The endoscopic impression of adenocarcinoma is noted. Sections of the hepatic flexure biopsy show granulation tissue. No carcinoma is identified as sampled. Additional tissue sampling is recommended if clinically indicated. Clinical History Abnormal CT; bloody emesis. Procedural Impression Hepatic flexure adenocarcinoma; polyps. Gross Description Received in formalin labeled hepatic flexure, are three lara-prajapati tissue fragments 0.3 to 0.6 cm. Totally submitted in one cassette. IHC Disclaimer Some of the tests reported may not have been cleared or approved by the U.S. Food Drug Administration (FDA). However, the FDA has determined that such clearance or approval is not necessary. Pursuant to the requirements of CLIA, this laboratory has established and verified the accuracy and precision of all tests, and additional information about these tests is available upon request. All technical controls are adequate. Microscopic Diagnosis Specimen B- COLON, ASCENDING POLYPECTOMY: --- TUBULAR ADENOMA. Gross Description Received in formalin labeled descending colon polyp, are two lara-prajapati tissue fragments 0.2 and 0.4 cm. Totally submitted in one cassette. Microscopic Diagnosis Specimen C- COLON, SIGMOID POLYPECTOMY: --- TUBULAR ADENOMA. Gross Description Received in formalin labeled sigmoid colon polyp, is a 1.1 cm lara-prajapati tissue fragment. Totally submitted in one cassette. Microscopic Diagnosis Specimen D- COLON COLON, RECTAL POLYPECTOMY: --- HYPERPLASTIC POLYP. Gross Description Received in formalin labeled rectal colon polyp, is a 0.7 cm lara-prajapati tissue fragment. Totally submitted in one cassette. ([place]:adj) Electronically Signed Ericka Santo MD, FCAP Electronically Signed 04/25/2021 14:33
--- NOTE | 2021-04-25 14:53 | General Surgery Progress Note ---
SUBJECTIVE Subjective Patient information: Note initiated : 04/25/21 at 845 am Service Date, if different from initiated Date: [] Patient: Hector Chadwick 80 y/o F admitted on 04/18/21 for bloody emesis. Chief Complaint: [POD #1 Right Hemicolectomy] No major issues overnight. Some pain this am. NGT bothersome with throat irritation. No SOB or Chest Pain Urine output appropriate post procedure. Constitutional Vitals: Vital Signs Temp Pulse Resp BP Pulse Ox 98.3 F 97 H 19 135/74 93 04/25/21 11:31 04/25/21 11:31 04/25/21 11:31 04/25/21 11:31 04/25/21 11:31 Period Temp Pulse Resp BP Sys/St Pulse Ox Last 24 Hr 97.8 F-99.7 F 84-106 10- 101-149/59-79 92-100 Intake and Output 04/25/21 04/25/21 04/25/21 05:59 13:59 21:59 Intake Total 1000 1000 Output Total 575 Balance 425 1000 Intake & Output: Intake & Output 04/25/21 04/25/21 04/25/21 05:59 13:59 21:59 Intake Total 1000 1000 Output Total 575 Balance 425 1000 Intake: IV 1000 1000 Dextrose 5%-Lactated Ringers 1, 1000 1000 000 ml @ 100 mls/hr IV .Q10H [facility] Rx#:[id number] Tube Feeding 0 0 Output: Gastric Drainage 150 Right Nare 150 Drainage 50 Right Lower VAHID Drain 50 Urine Catheter Amount 375 Other: Urine Appearance Clear Uretheral (Carballo) Clear Urine Color Dark Yellow Uretheral (Carballo) Bright Yellow General appearance: cooperative and no acute distress Respiratory Respiratory exam: Present normal respiratory exam; Absent respiratory distress Cardiovascular Cardiovascular exam: Present normal rate and rhythm and RRR GI/Abdominal Additional comments: dressing dry with binder in place. belly seems soft and non distended. NGT is appropriate bilious and non bloody. JPD is serosanguinous. Carballo in place with normal colored urine. Extremities Exam Additional comments: well perfused Neurological Exam Additional comments: grossly intact A/P Assessment and plan (1) Status post colectomy: Status: Acute Narrative A/P Narrative: POD #1 Ex Lap, Lysis of Adhesions, and Right Hemicolectomy Doing well without evidence of complication at this point Continue NPO with sips and chips, chew gum, hard candy, etc Bedside chair today Add BID Lovenox for DVT prophylaxis today as well as IV tylenol to help with pain Leave carballo for now - probable carballo D/C in the AM if able to be more active with better pain control by then Time Spent With Patient Time: Total time spent is greater than 50% in coordination of care (as documented) at patient's floor/unit and/or counseling patient:
[2021-04-25] MEDS ORDERED: ACETAMINOPHEN 650 MG/65 ML BAG IV PRN (17:59)
[2021-04-25] MEDS ORDERED: ALBUMIN HUMAN 25 GM/100 ML BAG IV ONE (20:03)
[2021-04-25] MEDS ORDERED: 0.9 % SODIUM CHLORIDE 400 ML IV ONE (20:05)
[2021-04-25] MEDS: ENOXAPARIN 30 MG/0.3 ML SYRINGE SQ SCH (21:32)
[2021-04-26] MEDS: 0.9 % SODIUM CHLORIDE 10 ML SYRINGE IV SCH ×3 (05:23→23:09)
[2021-04-26 07:03] LABS: Basophils # (Auto) 0.01 K/mcL (0.00-0.30); Basophils % (Auto) 0.1 % (0.0-2.0); Eosinophils # (Auto) 0.07 K/mcL (0.00-0.70); Eosinophils % (Auto) 0.7 % (0.0-7.0); Hematocrit 29.5 % (34.1-44.9); Hemoglobin 9.3 g/dL (11.2-15.7); Lymphocytes # (Auto) 0.78 K/mcL (1.50-4.80); Mean Cell Volume 84.3 fL (80.0-100.0); Mean Corpuscular HGB Conc 31.5 g/dL (31.0-36.0); Mean Platelet Volume 10.2 fL (7.4-10.4); Monocytes # (Auto) 0.99 K/mcL (0.10-0.90); Monocytes % (Auto) 10.1 % (1.0-12.0); Neutrophils % (Auto) 81.1 % (38.0-78.0); Platelet Count 255 K/mcL (140-440); Red Cell Distribution Width 15.8 % (11.5-14.5); WBC 9.8 K/mcL (4.5-11.0)
[2021-04-26 07:43] LABS: ALT/SGPT 14 U/L (<40); AST/SGOT 19 U/L (<32); Albumin/Globulin Ratio 1.3 (1.0-2.3); Alkaline Phosphatase 63 U/L (39-117); Bilirubin,Total 0.5 mg/dL (0.1-1.0); Blood Urea Nitrogen 7 mg/dL (8-23); Calcium 8.5 mg/dL (8.6-10.4); Carbon Dioxide 26 mmol/L (22-30); Chloride 101 mmol/L (96-108); Globulin 2.3 gm/dL (2.2-3.7); Glomerular Filtration Rate 84; Glucose 120 mg/dL (70-105)
[2021-04-26] MEDS: ENOXAPARIN 30 MG/0.3 ML SYRINGE SQ SCH ×2 (07:58→22:26)
[2021-04-26] MEDS: DEXTROSE 5%-LR 1,000 ML IV SCH ×2 (07:58→16:39)
[2021-04-26] MEDS: PANTOPRAZOLE 40 MG VIAL IV SCH ×2 (07:58→16:39)
--- NOTE | 2021-04-26 11:26 | Internal Med Progress Note ---
SUBJECTIVE Subjective Patient information: Note initiated : 04/26/21 at 11:23 am Service Date, if different from initiated Date: [] Patient: Hector Chadwick a 80 y/o F admitted on 04/18/21 for bloody emesis. Chief Complaint: [GI bleeding] Interval history: History of present illness: Ms. Chadwick is a 80 year old F Presents the ED with hematemesis. Patient has a history of DVT on Eliquis her old home medication does list ibuprofen but she says she does not take that. She woke up yesterday feeling fine and then in the afternoon she started having a little bit of an upset stomach and the pain worsened into the night and it was a sharp and burning pain nonradiating. She had an episode of nausea vomiting last night. She could not sleep very well because of the pain. This morning she had another episode nausea vomiting described as dark coffee-g round emesis. And then she had a large episode of diarrhea of dark stool. She was significantly lightheaded and when she got up to walk she almost passed out and could not walk very far because of weakness as well. Patient denies chest pain or shortness of breath In the ED she had a hemoglobin of 9 and it was 11 few weeks prior. Blood pressures have been in the 90s to low 100s she did have a systolic of 79 at one reading. She is also tachycardic 120s one-point Dr. Phipps was contacted to perform EGD. EGD performed found a small hiatal hernia and several Darrion lesions. Recommendations were for lifelong PPI. 04/19 Patient still feels quite weak but much better than when she came in. Did have some dark liquid stool last night likely residual. 04/20: Continued to have black stools. Denies nausea vomiting or hematemesis. H/H: 9.1/30.0-->8.0/26.9. c/o intermittent, crampy epigastric and RUQ abdominal pain, 11/21. c/o headache. 04/21: s/p repeat EGD by GI yesterday, no new/recurrent source of bleeding identified. H/H stable. Denies abdominal pain. Denies chest pain. Denies nausea vomiting hematemesis constipation or diarrhea. One episode of black stool overnight. 04/22: s/p colonoscopy on 04/21, could not advance the scope pass the tumor at hepatic flexure. General surgeon Dr. Wilkerson decided to proceed with tumor/bowel resection on . NPO for the time being. Serum potassium level 2.9. Denies any fever or chills. Denies any nausea or vomiting. Still have black stools. Denies any abdominal pain. 04/23: Hemoglobin 8.3-->8.2. Dr. Wilkerson decide to give 1 unit pRBC transfusion today as part of the pre-op measures. Denies any abdominal pain. Denies any nausea or vomiting. Denies any fever or chills. 04/24: H/H stable. Surgery by Dr. Wilkerson for planned colonic tumor resection this morning. 04/25: s/p right hemicolectomy with primary re-anastomosis by Dr. Wilkerson on 04/24. NG and VAHID drain placement. Afebrile overnight. Room air. c/o 3/10 diffused ab dominal pain. c/o sore throat. Denies nausea vomiting. Denies fever chills or sweating. Denies SOB. On ice chips. 04/26: No major overnight events. Still on ice chips. No hematemesis or black or bloody stool. Denies abdominal pain. Denies nausea or vomiting. Denies fever or chills. c/o general body weakness. Constitutional Vitals: Vital Signs Temp Pulse Resp BP Pulse Ox 36.6 C 100 H 16 148/74 91 04/26/21 06:50 04/26/21 06:50 04/26/21 06:50 04/26/21 06:50 04/26/21 06:50 Period Temp Pulse Resp BP Sys/St Pulse Ox Last 24 Hr 36.2 C-36.9 C 97-106 12-19 129-151/66-87 90-94 Intake and Output 04/25/21 04/26/21 04/26/21 21:59 05:59 13:59 Intake Total 719 589 3618 Output Total 821 904 1993 Balance 210 -35 -25 Weight 85.871 kg Intake & Output: Intake & Output 04/25/21 04/26/21 04/26/21 21:59 05:59 13:59 Intake Total 241 826 7133 Output Total 113 406 5881 Balance 210 -35 -25 Weight 85.871 kg Intake: IV 639 023 7196 Sodium Chloride 0.9% 400 ml @ 400 100 mls/hr IV BOLUS ONE Rx#: [id number] Dextrose 5%-Lactated Ringers 1, 865 1000 000 ml @ 100 mls/hr IV .Q10H [facility] Rx#:[id number] Oral 60 Tube Feeding 0 0 0 Output: Gastric Drainage 500 0 Right Nare 500 0 Drainage 85 Right Lower VAHID Drain 85 Drainage 15 190 Right Lower VAHID Drain 15 190 Urine Catheter Amount 200 450 900 Other: Urine Appearance Cloudy Uretheral (Miller) Cloudy Cloudy Hematuria Urine Color Bright Yellow Blood Tinged Uretheral (Miller) Dark Yellow Bright Yellow Blood Tinged Urine Odor Uretheral (Miller) Normal General appearance: cooperative and no acute distress Head Head exam: Present atraumatic and normocephalic Eye Eye exam: Present EOMI and PERRL ENT ENT exam: Present mucous membranes moist, normal exam and normal external ear exam Additional comments: NG tube in place Neck Neck exam: Present normal inspection; Absent lymphadenopathy, tenderness and thyromegaly Respiratory Respiratory exam: Absent accessory muscle use, respiratory distress and wheezes Cardiovascular Cardiovascular exam: Present normal rate and rhythm; Absent JVD GI/Abdominal GI/Abdominal exam: Present normal bowel sounds, soft, hypoactive bowel sounds and tenderness; Absent organomegaly Additional comments: abdominal binder in place VAHID drain in place with serosanguineous discharge Surgical incisions covered by surgical dressing Extremities Exam Extremities exam: Present full ROM, normal capillary refill and normal inspection; Absent tenderness Neurological Exam Neurological exam: Present alert, CN II-XII intact and oriented X3; Absent motor sensory deficit Psychiatric Psychiatric exam: Present normal affect and normal mood; Absent anxious and depressed Skin Skin exam: Present dry and intact OBJ DATA Labs CBC & Chem 7: 04/26/21 05:20 04/26/21 05:20 Labs: Abnormal Lab Results 04/26/21 04/26/21 04/25/21 05:20 05:20 05:46 WBC 13.1 H RBC 3.50 L Hgb 9.3 L 11.0 L Hct 29.5 L MCHC 30.6 L RDW 15.8 H 15.3 H Neut % (Auto) 81.1 H 86.2 H Lymph % (Auto) 8.0 L 4.4 L Lymph # (Auto) 0.78 L 0.57 L [place] # (Auto) 0.99 H 1.20 H Absolute Neutrophils 11.26 H Potassium 3.0 L Carbon Dioxide BUN 7 L Glucose 120 H Calcium 8.5 L Total Protein 5.3 L Albumin 3.0 L 04/25/21 04/24/21 04/24/21 05:45 05:40 05:40 WBC RBC Hgb 10.3 L Hct 32.9 L MCHC RDW 15.2 H Neut % (Auto) 79.9 H Lymph % (Auto) 10.0 L Lymph # (Auto) 0.69 L [place] # (Auto) Absolute Neutrophils Potassium 3.0 L Carbon Dioxide 21 L 19 L BUN 6 L 4 L Glucose 186 H 65 L Calcium 8.2 L Total Protein 5.5 L 5.4 L Albumin 3.1 L 3.0 L Meds: Medications Enoxaparin Sodium (Enoxaparin 30 Mg/0.3 Ml Syringe) 30 mg SQ BID [facility] Last Admin: 04/26/21 07:58 Dose: 30 mg Documented by: Magnesium Sulfate (Magnesium Sulfate) 2 gm in 50 mls @ 50 mls/hr IV UD PRN PRN Reason: Magnesium </= 1.6 Potassium Chloride 20 meq/ (Dextrose) 260 mls @ 130 mls/hr IV UD PRN PRN Reason: other Last Infusion: 04/24/21 11:38 Dose: Infused Documented by: Potassium Chloride 40 meq/ (Dextrose) 520 mls @ 130 mls/hr IV UD PRN PRN Reason: Potassium < 3 Last Infusion: 04/22/21 20:19 Dose: Infused Documented by: Dextrose/Lactated Ringer's (Dextrose 5%-Lactated Ringers) 1,000 mls @ 100 mls/hr IV .Q10H [facility] Last Admin: 04/26/21 07:58 Dose: 100 mls/hr Documented by: Acetaminophen (Ofirmev) 650 mg in 65 mls @ 130 mls/hr IV Q8H [facility]; Protocol Metoclopramide HCl (Metoclopramide 10 Mg/2 Ml Vial) 10 mg IV Q6HP PRN PRN Reason: Nausea And Vomiting Morphine Sulfate (Morphine 2 Mg/Ml Vial) 2 mg IV Q4HP PRN; Protocol PRN Reason: Per Pain Protocol Last Admin: 04/25/21 12:52 Dose: 2 mg Documented by: Ondansetron HCl (Ondansetron 4 Mg/2 Ml Vial) 4 mg IV Q4HP PRN PRN Reason: Nausea And Vomiting Oxycodone HCl (Oxycodone Hcl 5 Mg Tablet) 5 mg PO Q4-6HP PRN; Protocol PRN Reason: Per Pain Protocol Pantoprazole Sodium (Pantoprazole 40 Mg Vial) 40 mg IV BIDAC [facility] Last Admin: 04/26/21 07:58 Dose: 40 mg Documented by: Potassium Chloride (Potassium Chloride 20 Meq Tablet) 40 meq PO UD PRN PRN Reason: Potssium is 3-3.5 Potassium Chloride (Potassium Chloride 20 Meq Tablet) 40 meq PO UD PRN PRN Reason: Potassium < 3 Promethazine HCl (Promethazine 25 Mg/Ml Vial) 12.5 mg IV Q6HP PRN PRN Reason: Nausea And Vomiting Simethicone (Simethicone 80 Mg Tab.Chew) 80 mg CHEWED QIDP PRN PRN Reason: Dyspepsia Sodium Biphosphate/Sodium Phosphate (Fleets Adult Enema) 2 dose [place] ONCE PRN PRN Reason: Bowel Prep Sodium Chloride (0.9 % Sodium Chloride 10 Ml Syringe) 10 ml IV Q8 [facility] Last Admin: 04/26/21 05:23 Dose: Not Given Documented by: Throat Lozenges (Benzocaine/Menthol 1 Lozenge) 1 lozenge PO PRN PRN PRN Reason: Sore Throat Last Admin: 04/25/21 16:45 Dose: 1 lozenge Documented by: A/P Assessment and plan (1) Left leg DVT: Status: Acute Qualifiers: Affected thrombotic vein of extremity: other lower extremity vein Chronicity: acute Qualified Code(s): I82.492 - Acute embolism and thrombosis of other specified deep vein of left lower extremity (2) Anemia: Status: Acute Qualifiers: Anemia type: unspecified type Qualified Code(s): D64.9 - Anemia, unspecified (3) Acute upper gastrointestinal hemorrhage: Status: Acute (4) Mass of hepatic flexure of colon: Status: Acute Narrative A/P Narrative: Assessment and Plans: 1. Upper GI bleeding with associated anemia, complicated by hepatic flexure colonic mass: Stays in inpatient med surg s/p EGD by Dr. Brandon on 04/19, found bleeding Rajesh's ulcers s/p repeat EGD by Dr. Brandon on 04/20, no new/recurrent source of bleeding s/p colonoscopy on 04/21, could not advance the scope pass the tumor at hepatic flexure s/p right hemicolectomy by Dr. Wilkerson on 04/24, s/p VAHID drain and NG tube placement Ice chips D5LR@100cc/hr PPI BID. When discharge, will switch to oral PPI BID for 30 days then daily Oxycodone PRN moderate pain Morphine IV PRN severe pain cbc w/ auto diff daily to trend H/H 2. h/o left leg DVT: Continue to hold Eliquis for planned surgery, see #1 GI ppx: PPI BID DVT ppx: Lovenox 30mg SQ BID Code status: Full Prognosis: Stable Disposition: Stays in inpatient med surg Time Spent With Patient Time: Total time spent is greater than 50% in coordination of care (as documented) at patient's floor/unit and/or counseling patient: QUALITY VTE Deep Vein Thrombosis/Pulmonary Embolism Present on Admission: No
[2021-04-26] MEDS: ACETAMINOPHEN 650 MG/65 ML BAG IV SCH ×2 (14:07→22:27)
--- NOTE | 2021-04-26 17:32 | General Surgery Progress Note ---
SUBJECTIVE Subjective Patient information: Note initiated : 04/26/21 at 5:27 pm Service Date, if different from initiated Date: [] Patient: Hector Chadwick 80 y/o F admitted on 04/18/21 for bloody emesis. Chief Complaint: [] Principal diagnosis: Postoperative extended right colectomy Interval history: Patient is doing well. She is bright and alert. Her pain is well controlled with intravenous acetaminophen. She denies having any respiratory difficulty and she denies chest pain. Urine output has been very good. She has not had flatus so far. White blood count 9.8, hemoglobin 9.3, hematocrit 29.5, potassium 3, BUN 7, creatinine 0.6. Constitutional Vitals: Vital Signs Temp Pulse Resp BP Pulse Ox 97.9 F 88 16 134/78 94 04/26/21 16:00 04/26/21 16:00 04/26/21 16:00 04/26/21 16:00 04/26/21 16:00 Period Temp Pulse Resp BP Sys/St Pulse Ox Last 24 Hr 97.1 F-98.1 F 83-106 12-16 130-151/69-87 90-94 Intake and Output 04/26/21 04/26/21 04/26/21 05:59 13:59 21:59 Intake Total 500 1065 933 Output Total 535 1090 Balance -35 -25 933 Weight 189 lb 5 oz Patient Weight 04/27/21 05:59 Weight 189 lb 5 oz Intake & Output: Intake & Output 04/26/21 04/26/21 04/26/21 05:59 13:59 21:59 Intake Total 500 1065 933 Output Total 535 1090 Balance -35 -25 933 Weight 189 lb 5 oz Intake: IV 500 1065 933 Sodium Chloride 0.9% 400 ml @ 400 100 mls/hr IV BOLUS ONE Rx#: [id number] Dextrose 5%-Lactated Ringers 1, 1000 868 000 ml @ 100 mls/hr IV .Q10H [facility] Rx#:[id number] Tube Feeding 0 0 Output: Gastric Drainage 0 Right Nare 0 Drainage 85 Right Lower VAHID Drain 85 Drainage 190 Right Lower VAHID Drain 190 Urine Catheter Amount 450 900 Other: Urine Appearance Cloudy Uretheral (Miller) Cloudy Urine Color Bright Yellow Blood Tinged Uretheral (Miller) Bright Yellow Urine Odor Uretheral (Miller) Normal Neck Neck exam: Present full ROM and normal inspection; Absent tenderness Respiratory Respiratory exam: Present normal respiratory exam and CTAB; Absent rales, rhonchi and wheezes Cardiovascular Cardiovascular exam: Present normal rate and rhythm, RRR, +S1 and +S2; Absent gallop and JVD GI/Abdominal GI/Abdominal exam: Present soft and diminished bowel sounds; Absent distended Additional comments: Incision is unremarkable; VAHID drainage is sanguinous Extremities Exam Extremities exam: Present full ROM and normal inspection; Absent calf tenderness and pedal edema Neurological Exam Neurological exam: Present alert and oriented X3; Absent motor sensory deficit Psychiatric Psychiatric exam: Present normal affect and normal mood A/P Assessment and plan (1) Mass of hepatic flexure of colon: Status: Acute (2) Status post colectomy: Status: Acute Narrative A/P Narrative: Patient is clinically stable Her potassium will be replaced We will leave Miller catheter in place for another day Time Spent With Patient Time: Total time spent is greater than 50% in coordination of care (as documented) at patient's floor/unit and/or counseling patient:
[2021-04-26] MEDS ORDERED: POTASSIUM CHLORIDE 40 MEQ in DEXTROSE 5% IN WATER 500 ML IV ONE (18:00)
[2021-04-26] MEDS ORDERED: POTASSIUM CHLORIDE 20 MEQ/10 ML VIAL IV ONE (19:31)
[2021-04-26] MEDS: BENZOCAINE/MENTHOL 1 LOZENGE PO PRN (22:26)
[2021-04-27] MEDS: DEXTROSE 5%-LR 1,000 ML IV SCH ×4 (03:50→23:45)
[2021-04-27] MEDS: ACETAMINOPHEN 650 MG/65 ML BAG IV SCH ×3 (06:28→22:19)
[2021-04-27] MEDS: 0.9 % SODIUM CHLORIDE 10 ML SYRINGE IV SCH ×3 (06:29→22:20)
[2021-04-27] MEDS: BENZOCAINE/MENTHOL 1 LOZENGE PO PRN (06:37)
[2021-04-27 06:57] LABS: Basophils # (Auto) 0.02 K/mcL (0.00-0.30); Basophils % (Auto) 0.3 % (0.0-2.0); Eosinophils # (Auto) 0.19 K/mcL (0.00-0.70); Eosinophils % (Auto) 2.8 % (0.0-7.0); Hematocrit 30.3 % (34.1-44.9); Lymphocytes % (Auto) 13.3 % (15.5-49.0); Mean Cell Volume 88.6 fL (80.0-100.0); Mean Corpuscular HGB Conc 29.7 g/dL (31.0-36.0); Monocytes # (Auto) 0.57 K/mcL (0.10-0.90); Monocytes % (Auto) 8.4 % (1.0-12.0); Neutrophils % (Auto) 75.2 % (38.0-78.0); Platelet Count 221 K/mcL (140-440); RBC 3.42 M/mcL (3.59-5.38); Red Cell Distribution Width 15.9 % (11.5-14.5); WBC 6.8 K/mcL (4.5-11.0)
[2021-04-27 07:22] LABS: ALT/SGPT 18 U/L (<40); AST/SGOT 28 U/L (<32); Albumin 2.8 gm/dL (3.2-5.2); Albumin/Globulin Ratio 1.3 (1.0-2.3); Alkaline Phosphatase 76 U/L (39-117); Bilirubin,Direct < 0.2 mg/dL (0-0.3); Bilirubin,Total 0.4 mg/dL (0.1-1.0); Blood Urea Nitrogen 6 mg/dL (8-23); Calcium 8.3 mg/dL (8.6-10.4); Carbon Dioxide 27 mmol/L (22-30); Chloride 103 mmol/L (96-108); Globulin 2.2 gm/dL (2.2-3.7); Glomerular Filtration Rate 96; Glucose 103 mg/dL (70-105); Lactate Dehydrogenase 205 U/L (135-225); Phosphorous 2.6 mg/dL (2.5-4.5); Triglycerides 90 mg/dL (<150); Uric Acid 3.3 mg/dL (2.5-8.0)
[2021-04-27] MEDS: PANTOPRAZOLE 40 MG VIAL IV SCH ×2 (07:31→16:39)
[2021-04-27] MEDS: ENOXAPARIN 30 MG/0.3 ML SYRINGE SQ SCH ×2 (09:06→19:12)
[2021-04-27] MEDS ORDERED: BENZOCAINE 1 SPRAY BOTTLE TOPICAL PRN (12:35)
--- NOTE | 2021-04-27 12:41 | General Surgery Progress Note ---
SUBJECTIVE Subjective Patient information: Note initiated : 04/27/21 at 12:37 pm Service Date, if different from initiated Date: [] Patient: Hector Chadwick 80 y/o F admitted on 04/18/21 for bloody emesis. Chief Complaint: [] Principal diagnosis: Postoperative extended right colectomy Interval history: Patient is doing well. She is bright and alert. She has been out of bed without difficulty. She has not had flatus so far. Her pain is controlled with acetaminophen. She denies nausea potassium 3.3, BUN 6, creatinine 0.4, white blood count 6.8, hemoglobin 9, hematocrit 30.3. Constitutional Vitals: Vital Signs Temp Pulse Resp BP Pulse Ox 98.7 F 80 16 133/78 96 04/27/21 11:56 04/27/21 11:56 04/27/21 11:56 04/27/21 11:56 04/27/21 11:56 Period Temp Pulse Resp BP Sys/St Pulse Ox Last 24 Hr 97.4 F-98.7 F 71-88 16-20 131-151/68-88 91-97 Intake and Output 04/26/21 04/27/21 04/27/21 21:59 05:59 13:59 Intake Total 933 1615 65 Output Total 1010 1090 Balance -77 525 65 Weight 192 lb 2 oz Intake & Output: Intake & Output 04/26/21 04/27/21 04/27/21 21:59 05:59 13:59 Intake Total 933 1615 65 Output Total 1010 1090 Balance -77 525 65 Weight 192 lb 2 oz Intake: IV 933 1585 65 Dextrose 5%-Lactated Ringers 1, 868 1000 000 ml @ 100 mls/hr IV .Q10H [facility] Rx#:[id number] Potassium Chloride 40 Meq In 520 Dextrose 5% in Water 500 ml @ 130 mls/hr IV ONCE ONE Rx#: [id number] Oral 30 Tube Feeding 0 0 0 Output: Gastric Drainage 120 Right Nare 120 Drainage 60 70 Right Lower VAHID Drain 60 70 Urine Catheter Amount 950 900 Other: Urine Appearance Clear Uretheral (Miller) Clear Clear Urine Color Bright Yellow Straw Uretheral (Miller) Bright Yellow Bright Yellow Urine Odor Normal Uretheral (Miller) Normal Neck Neck exam: Present full ROM and normal inspection; Absent tenderness Respiratory Respiratory exam: Present normal respiratory exam and CTAB; Absent rales, rhonchi and wheezes Cardiovascular Cardiovascular exam: Present normal rate and rhythm, RRR, +S1 and +S2; Absent gallop and JVD GI/Abdominal GI/Abdominal exam: Present soft and diminished bowel sounds; Absent distended Additional comments: Incision is unremarkable; VAHID drainage is sanguinous Extremities Exam Extremities exam: Present full ROM and normal inspection; Absent calf tenderness and pedal edema Neurological Exam Neurological exam: Present alert and oriented X3; Absent motor sensory deficit Psychiatric Psychiatric exam: Present normal affect and normal mood A/P Assessment and plan (1) Mass of hepatic flexure of colon: Status: Acute (2) Status post colectomy: Status: Acute (3) Hypokalemia: Status: Acute Narrative A/P Narrative: Potassium chloride rider Discontinue Miller catheter with use of bedside commode Cetacaine spray for oral discomfort Time Spent With Patient Time: Total time spent is greater than 50% in coordination of care (as documented) at patient's floor/unit and/or counseling patient:
[2021-04-27] MEDS ORDERED: POTASSIUM PHOSPHATE 40 MEQ in DEXTROSE 5% IN WATER 500 ML IV ONE (13:30)
--- NOTE | 2021-04-27 15:47 | Internal Med Progress Note ---
SUBJECTIVE Subjective Patient information: Note initiated : 04/27/21 at 3:41 pm Service Date, if different from initiated Date: [] Patient: Hector Chadwick a 80 y/o F admitted on 04/18/21 for bloody emesis. Chief Complaint: [] Principal diagnosis: Postoperative extended right colectomy Interval history: History of present illness: Ms. Chadwick is a 80 year old F Presents the ED with hematemesis. Patient has a history of DVT on Eliquis her old home medication does list ibuprofen but she says she does not take that. She woke up yesterday feeling fine and then in the afternoon she started having a little bit of an upset stomach and the pain worsened into the night and it was a sharp and burning pain nonradiating. She had an episode of nausea vomiting last night. She could not sleep very well because of the pain. This morning she had another episode nausea vomiting described as dark coffee- ground emesis. And then she had a large episode of diarrhea of dark stool. She was significantly lightheaded and when she got up to walk she almost passed out and could not walk very far because of weakness as well. Patient denies chest pain or shortness of breath In the ED she had a hemoglobin of 9 and it was 11 few weeks prior. Blood pressures have been in the 90s to low 100s she did have a systolic of 79 at one reading. She is also tachycardic 120s one-point Dr. Phipps was contacted to perform EGD. EGD performed found a small hiatal hernia and several Darrion lesions. Recommendations were for lifelong PPI. 04/19 Patient still feels quite weak but much better than when she came in. Did have some dark liquid stool last night likely residual. 04/20: Continued to have black stools. Denies nausea vomiting or hematemesis. H/H: 9.1/30.0-->8.0/26.9. c/o intermittent, crampy epigastric and RUQ abdominal pain, 11/21. c/o headache. 04/21: s/p repeat EGD by GI yesterday, no new/recurrent source of bleeding identified. H/H stable. Denies abdominal pain. Denies chest pain. Denies nausea vomiting hematemesis constipation or diarrhea. One episode of black stool overnight. 04/22: s/p colonoscopy on 04/21, could not advance the scope pass the tumor at hepatic flexure. General surgeon Dr. Wilkerson decided to proceed with tumor/bowel resection on . NPO for the time being. Serum potassium level 2.9. Denies any fever or chills. Denies any nausea or vomiting. Still have black stools. Denies any abdominal pain. 04/23: Hemoglobin 8.3-->8.2. Dr. Wiklerson decide to give 1 unit pRBC transfusion today as part of the pre-op measures. Denies any abdominal pain. Denies any nausea or vomiting. Denies any fever or chills. 04/24: H/H stable. 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 04/25: s/p right hemicolectomy with primary re-anastomosis by Dr. Wilkerson on 04/24. NG and VAHID drain placement. Afebrile overnight. Room air. c/o 3/10 diffused abdominal pain. c/o sore throat. Denies nausea vomiting. Denies fever chills or sweating. Denies SOB. On ice chips. 04/26: No major overnight events. Still on ice chips. No hematemesis or black or bloody stool. Denies abdominal pain. Denies nausea or vomiting. Denies fever or chills. c/o general body weakness. 04/27: Discontinued carballo, potassium replacement, no major events. Physical exam Head: Atraumatic, normal inspection. Eyes: normal appearance, no scleral icterus. Neck: full ROM Respiratory: no respiratory distress. Cardiovascular: normal rate and rhythm, S1, S2. GI/Abdominal: surgical drain, soft, nontender, no guarding. Extremities: full range of motion, nontender. Neurological: CN II-XII intact, intact motor, intact sensation. Psychiatric: normal mood. Skin: warm, normal color Constitutional Vitals: Vital Signs Temp Pulse Resp BP Pulse Ox 98.7 F 80 16 133/78 96 04/27/21 13:56 04/27/21 11:56 04/27/21 11:56 04/27/21 11:56 04/27/21 11:56 Period Temp Pulse Resp BP Sys/St Pulse Ox Last 24 Hr 97.4 F-98.7 F 71-88 16-20 131-151/68-88 91-97 Intake and Output 04/27/21 04/27/21 04/27/21 05:59 13:59 21:59 Intake Total 1615 65 65 Output Total 1090 120 Balance 525 65 -55 Intake & Output: Intake & Output 04/27/21 04/27/21 04/27/21 05:59 13:59 21:59 Intake Total 1615 65 65 Output Total 1090 120 Balance 525 65 -55 Intake: IV 1585 65 65 Dextrose 5%-Lactated Ringers 1, 1000 000 ml @ 100 mls/hr IV .Q10H [facility] Rx#:[id number] Potassium Chloride 40 Meq In 520 Dextrose 5% in Water 500 ml @ 130 mls/hr IV ONCE ONE Rx#: [id number] Oral 30 Tube Feeding 0 0 0 Output: Gastric Drainage 120 Right Nare 120 Drainage 60 Right Lower VAHID Drain 60 Drainage 70 60 Right Lower VAHID Drain 70 60 Urine Catheter Amount 900 Other: Urine Appearance Uretheral (Carballo) Clear Urine Color Straw Uretheral (Carballo) Bright Yellow Urine Odor Uretheral (Carballo) Normal OBJ DATA Labs CBC & Chem 7: 04/27/21 06:08 04/27/21 06:08 Labs: Abnormal Lab Results 04/27/21 04/27/21 04/26/21 06:08 06:08 05:20 WBC RBC 3.42 L Hgb 9.0 L Hct 30.3 L MCHC 29.7 L RDW 15.9 H Neut % (Auto) Lymph % (Auto) 13.3 L Lymph # (Auto) 0.90 L [place] # (Auto) Absolute Neutrophils Potassium 3.0 L Carbon Dioxide BUN 6 L 7 L Creatinine 0.4 L Glucose 120 H Calcium 8.3 L 8.5 L Total Protein 5.0 L 5.3 L Albumin 2.8 L 3.0 L 04/26/21 04/25/21 04/25/21 05:20 05:46 05:45 WBC 13.1 H RBC 3.50 L Hgb 9.3 L 11.0 L Hct 29.5 L MCHC 30.6 L RDW 15.8 H 15.3 H Neut % (Auto) 81.1 H 86.2 H Lymph % (Auto) 8.0 L 4.4 L Lymph # (Auto) 0.78 L 0.57 L [place] # (Auto) 0.99 H 1.20 H Absolute Neutrophils 11.26 H Potassium Carbon Dioxide 21 L BUN 6 L Creatinine Glucose 186 H Calcium Total Protein 5.5 L Albumin 3.1 L Meds: Medications Benzocaine (Benzocaine 1 [place] Bottle) 3 spray TOPICAL 3-4XD PRN PRN Reason: Pain Stop: 05/03/21 12:34 Enoxaparin Sodium (Enoxaparin 30 Mg/0.3 Ml Syringe) 30 mg SQ BID [facility] Last Admin: 04/27/21 09:06 Dose: 30 mg Documented by: Magnesium Sulfate (Magnesium Sulfate) 2 gm in 50 mls @ 50 mls/hr IV UD PRN PRN Reason: Magnesium </= 1.6 Potassium Chloride 20 meq/ (Dextrose) 260 mls @ 130 mls/hr IV UD PRN PRN Reason: other Last Infusion: 04/24/21 11:38 Dose: Infused Documented by: Potassium Chloride 40 meq/ (Dextrose) 520 mls @ 130 mls/hr IV UD PRN PRN Reason: Potassium < 3 Last Infusion: 04/22/21 20:19 Dose: Infused Documented by: Dextrose/Lactated Ringer's (Dextrose 5%-Lactated Ringers) 1,000 mls @ 100 mls/hr IV .Q10H [facility] Last Admin: 04/27/21 14:03 Dose: Not Given Documented by: Acetaminophen (Ofirmev) 650 mg in 65 mls @ 130 mls/hr IV Q8H [facility]; Protocol Last Infusion: 04/27/21 14:54 Dose: Infused Documented by: Potassium Phosphate 40 meq/ (Dextrose) 509.0909 mls @ 127.273 mls/hr IV ONCE ONE Stop: 04/27/21 17:29 Last Admin: 04/27/21 14:49 Dose: 127.273 mls/hr Documented by: Metoclopramide HCl (Metoclopramide 10 Mg/2 Ml Vial) 10 mg IV Q6HP PRN PRN Reason: Nausea And Vomiting Morphine Sulfate (Morphine 2 Mg/Ml Vial) 2 mg IV Q4HP PRN; Protocol PRN Reason: Per Pain Protocol Last Admin: 04/25/21 12:52 Dose: 2 mg Documented by: Ondansetron HCl (Ondansetron 4 Mg/2 Ml Vial) 4 mg IV Q4HP PRN PRN Reason: Nausea And Vomiting Oxycodone HCl (Oxycodone Hcl 5 Mg Tablet) 5 mg PO Q4-6HP PRN; Protocol PRN Reason: Per Pain Protocol Pantoprazole Sodium (Pantoprazole 40 Mg Vial) 40 mg IV BIDAC [facility] Last Admin: 04/27/21 07:31 Dose: 40 mg Documented by: Potassium Chloride (Potassium Chloride 20 Meq Tablet) 40 meq PO UD PRN PRN Reason: Potssium is 3-3.5 Potassium Chloride (Potassium Chloride 20 Meq Tablet) 40 meq PO UD PRN PRN Reason: Potassium < 3 Promethazine HCl (Promethazine 25 Mg/Ml Vial) 12.5 mg IV Q6HP PRN PRN Reason: Nausea And Vomiting Simethicone (Simethicone 80 Mg Tab.Chew) 80 mg CHEWED QIDP PRN PRN Reason: Dyspepsia Sodium Biphosphate/Sodium Phosphate (Fleets Adult Enema) 2 dose DC ONCE PRN PRN Reason: Bowel Prep Sodium Chloride (0.9 % Sodium Chloride 10 Ml Syringe) 10 ml IV Q8 [facility] Last Admin: 04/27/21 14:57 Dose: 10 ml Documented by: Throat Lozenges (Benzocaine/Menthol 1 Lozenge) 1 lozenge PO PRN PRN PRN Reason: Sore Throat Last Admin: 04/27/21 06:37 Dose: 1 lozenge Documented by: A/P Narrative A/P Narrative: Assessment: 80-year-old female initially admitted for GI bleed, EGD showed bleeding hemorrhoids erosions and hiatal hernia, colonoscopy showed a large mass at the hepatic flexure now status post right hemicolectomy. #Status post hemicolectomy for hepatic flexure mass #Resolved upper GI bleed secondary to Darrion's erosions #History of DVT Plan -Awaiting of bowel function. -IV fluids, replace electrolytes as needed. -Analgesics as needed. -Follow-up pathology. -Surgery following for management of drains, NG tube, diet. -Protonix IV twice daily. -DVT prophylaxis: Lovenox -CODE STATUS: Full -Disposition: [facility]. Time Spent With Patient Time: Total time spent is greater than 50% in coordination of care (as documented) at patient's floor/unit and/or counseling patient: QUALITY VTE Deep Vein Thrombosis/Pulmonary Embolism Present on Admission: No
[2021-04-28] MEDS: ACETAMINOPHEN 650 MG/65 ML BAG IV SCH ×3 (05:55→22:58)
[2021-04-28] MEDS: 0.9 % SODIUM CHLORIDE 10 ML SYRINGE IV SCH ×3 (05:56→23:19)
[2021-04-28] MEDS: PANTOPRAZOLE 40 MG VIAL IV SCH ×2 (06:53→17:21)
[2021-04-28 07:05] LABS: Basophils # (Auto) 0.02 K/mcL (0.00-0.30); Basophils % (Auto) 0.3 % (0.0-2.0); Eosinophils # (Auto) 0.09 K/mcL (0.00-0.70); Eosinophils % (Auto) 1.2 % (0.0-7.0); Hematocrit 34.6 % (34.1-44.9); Hemoglobin 10.9 g/dL (11.2-15.7); Lymphocytes # (Auto) 0.73 K/mcL (1.50-4.80); Lymphocytes % (Auto) 9.7 % (15.5-49.0); Mean Corpuscular HGB Conc 31.5 g/dL (31.0-36.0); Mean Platelet Volume 10.1 fL (7.4-10.4); Neutrophils % (Auto) 80.8 % (38.0-78.0); Platelet Count 331 K/mcL (140-440); RBC 4.12 M/mcL (3.59-5.38); Red Cell Distribution Width 15.9 % (11.5-14.5); WBC 7.5 K/mcL (4.5-11.0)
[2021-04-28 07:36] LABS: ALT/SGPT 19 U/L (<40); AST/SGOT 23 U/L (<32); Albumin 2.9 gm/dL (3.2-5.2); Albumin/Globulin Ratio 1.2 (1.0-2.3); Alkaline Phosphatase 95 U/L (39-117); Bilirubin,Direct < 0.2 mg/dL (0-0.3); Bilirubin,Total 0.5 mg/dL (0.1-1.0); Blood Urea Nitrogen 13 mg/dL (8-23); Calcium 8.6 mg/dL (8.6-10.4); Carbon Dioxide 26 mmol/L (22-30); Chloride 100 mmol/L (96-108); Globulin 2.4 gm/dL (2.2-3.7); Glomerular Filtration Rate 84; Glucose 98 mg/dL (70-105); Lactate Dehydrogenase 200 U/L (135-225); Phosphorous 4.1 mg/dL (2.5-4.5); Triglycerides 135 mg/dL (<150); Uric Acid 3.1 mg/dL (2.5-8.0)
[2021-04-28] MEDS: ENOXAPARIN 30 MG/0.3 ML SYRINGE SQ SCH ×2 (08:49→20:36)
[2021-04-28] MEDS: DEXTROSE 5%-LR 1,000 ML IV SCH (11:12)
--- NOTE | 2021-04-28 15:00 | General Surgery Progress Note ---
SUBJECTIVE Subjective Patient information: Note initiated : 04/28/21 at 2:57 pm Service Date, if different from initiated Date: [] Patient: Hector Chadwick 80 y/o F admitted on 04/18/21 for bloody emesis. Chief Complaint: [] Principal diagnosis: Postoperative extended right colectomy Interval history: Patient continues to improve. CT has tolerated clear liquids and has had multiple bowel movements. She denies nausea. She is afebrile. Her abdominal discomfort has resolved. White blood count 7.5, hemoglobin 10.9, hematocrit 34.6, potassium 3, BUN 13, creatinine 0.6 Constitutional Vitals: Vital Signs Temp Pulse Resp BP Pulse Ox 97.9 F 76 20 138/64 96 04/28/21 14:26 04/28/21 08:00 04/28/21 08:00 04/28/21 08:00 04/28/21 08:00 Period Temp Pulse Resp BP Sys/St Pulse Ox Last 24 Hr 97.1 F-97.9 F 76-89 16-20 123-164/64-88 94-96 Intake and Output 04/28/21 04/28/21 04/28/21 05:59 13:59 21:59 Intake Total 65 1065 Output Total 1315 Balance -1250 1065 Intake & Output: Intake & Output 04/28/21 04/28/21 04/28/21 05:59 13:59 21:59 Intake Total 65 1065 Output Total 1315 Balance -1250 1065 Intake: IV 65 1065 Dextrose 5%-Lactated Ringers 1, 1000 000 ml @ 100 mls/hr IV .Q10H [facility] Rx#:[id number] Tube Feeding 0 0 Output: Gastric Drainage 50 Right Nare 50 Drainage 140 Right Lower VAHID Drain 140 Urine Catheter Amount 375 Stool 750 Other: Urine Appearance Uretheral (Miller) Clear Urine Color Dark Yellow Uretheral (Miller) Bright Yellow Urine Odor Uretheral (Miller) Normal Stool Color Brown Stool Consistency Liquid Eye Eye exam: Present EOMI and PERRL ENT ENT exam: Present mucous membranes moist, normal exam and normal external ear exam Additional comments: NG tube in place Neck Neck exam: Present full ROM and normal inspection; Absent tenderness Respiratory Respiratory exam: Present normal respiratory exam and CTAB; Absent rales, rhonchi and wheezes Cardiovascular Cardiovascular exam: Present normal rate and rhythm, RRR, +S1 and +S2; Absent gallop and JVD GI/Abdominal GI/Abdominal exam: Present soft and diminished bowel sounds; Absent distended Additional comments: Incision is unremarkable; VAHID drainage is sanguinous Extremities Exam Extremities exam: Present full ROM and normal inspection; Absent calf tenderness and pedal edema Neurological Exam Neurological exam: Present alert and oriented X3; Absent motor sensory deficit Psychiatric Psychiatric exam: Present normal affect and normal mood A/P Assessment and plan (1) Mass of hepatic flexure of colon: Status: Acute (2) Status post colectomy: Status: Acute (3) Hypokalemia: Status: Acute Narrative A/P Narrative: Will replace potassium chloride GI soft diet Make arrangements for discharge in 1 to 2 days Time Spent With Patient Time: Total time spent is greater than 50% in coordination of care (as document ed) at patient's floor/unit and/or counseling patient:
[2021-04-28] MEDS: POTASSIUM CHLORIDE 40 MEQ in DEXTROSE 5% IN WATER 500 ML IV SCH ×2 (15:48→20:36)
--- NOTE | 2021-04-28 17:06 | Internal Med Progress Note ---
SUBJECTIVE Subjective Patient information: Note initiated : 04/28/21 at 5:04 pm Service Date, if different from initiated Date: [] Patient: Hector Chadwick a 80 y/o F admitted on 04/18/21 for bloody emesis. Chief Complaint: [] Principal diagnosis: Postoperative extended right colectomy Interval history: History of present illness: Ms. Chadwick is a 80 year old F Presents the ED with hematemesis. Patient has a history of DVT on Eliquis her old home medication does list ibuprofen but she says she does not take that. She woke up yesterday feeling fine and then in the afternoon she started having a little bit of an upset stomach and the pain worsened into the night and it was a sharp and burning pain nonradiating. She had an episode of nausea vomiting last night. She could not sleep very well because of the pain. This morning she had another episode nausea vomiting described as dark coffee- ground emesis. And then she had a large episode of diarrhea of dark stool. She was significantly lightheaded and when she got up to walk she almost passed out and could not walk very far because of weakness as well. Patient denies chest pain or shortness of breath In the ED she had a hemoglobin of 9 and it was 11 few weeks prior. Blood pressures have been in the 90s to low 100s she did have a systolic of 79 at one reading. She is also tachycardic 120s one-point Dr. Phipps was contacted to perform EGD. EGD performed found a small hiatal hernia and several Darrion lesions. Recommendations were for lifelong PPI. 04/19 Patient still feels quite weak but much better than when she came in. Did have some dark liquid stool last night likely residual. 04/20: Continued to have black stools. Denies nausea vomiting or hematemesis. H/H: 9.1/30.0-->8.0/26.9. c/o intermittent, crampy epigastric and RUQ abdominal pain, 11/21. c/o headache. 04/21: s/p repeat EGD by GI yesterday, no new/recurrent source of bleeding identified. H/H stable. Denies abdominal pain. Denies chest pain. Denies nausea vomiting hematemesis constipation or diarrhea. One episode of black stool overnight. 04/22: s/p colonoscopy on 04/21, could not advance the scope pass the tumor at hepatic flexure. General surgeon Dr. Wilkerson decided to proceed with tumor/bowel resection on . NPO for the time being. Serum potassium level 2.9. Denies any fever or chills. Denies any nausea or vomiting. Still have black stools. Denies any abdominal pain. 04/23: Hemoglobin 8.3-->8.2. Dr. Wilkerson decide to give 1 unit pRBC transfusion today as part of the pre-op measures. Denies any abdominal pain. Denies any nausea or vomiting. Denies any fever or chills. 04/24: H/H stable. 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 04/25: s/p right hemicolectomy with primary re-anastomosis by Dr. Wilkerson on 04/24. NG and VAHID drain placement. Afebrile overnight. Room air. c/o 3/10 diffused abdominal pain. c/o sore throat. Denies nausea vomiting. Denies fever chills or sweating. Denies SOB. On ice chips. 04/26: No major overnight events. Still on ice chips. No hematemesis or black or bloody stool. Denies abdominal pain. Denies nausea or vomiting. Denies fever or chills. c/o general body weakness. 04/27: No major events overnight, positive bowel sounds, waiting return of bowel function. 04/28: Had multiple bowel movements, diet advanced to soft. Physical exam Head: Atraumatic, normal inspection. Eyes: normal appearance, no scleral icterus. Neck: full ROM Respiratory: no respiratory distress. Cardiovascular: normal rate and rhythm, S1, S2. GI/Abdominal: surgical drain, soft, nontender, no guarding. Extremities: full range of motion, nontender. Neurological: CN II-XII intact, intact motor, intact sensation. Psychiatric: normal mood. Skin: warm, normal color Constitutional Vitals: Vital Signs Temp Pulse Resp BP Pulse Ox 97.9 F 85 20 126/64 95 04/28/21 15:11 04/28/21 12:00 04/28/21 12:00 04/28/21 12:00 04/28/21 12:00 Period Temp Pulse Resp BP Sys/St Pulse Ox Last 24 Hr 97.1 F-98.0 F 76-89 16-20 123-164/64-88 94-96 Intake and Output 04/28/21 04/28/21 04/28/21 05:59 13:59 21:59 Intake Total 65 1065 465 Output Total 1315 15 Balance -1250 1065 450 Intake & Output: Intake & Output 04/28/21 04/28/21 04/28/21 05:59 13:59 21:59 Intake Total 65 1065 465 Output Total 1315 15 Balance -1250 1065 450 Intake: [place] quantity 400 IV 65 1065 65 Dextrose 5%-Lactated Ringers 1, 1000 000 ml @ 100 mls/hr IV .Q10H [facility] Rx#:[id number] Tube Feeding 0 0 Output: Gastric Drainage 50 Right Nare 50 Drainage 15 Right Lower VAHID Drain 15 Drainage 140 Right Lower VAHID Drain 140 Urine Catheter Amount 375 Stool 750 Other: Meal Lunch Percent of Meal Consumed 75% Urine Appearance Clear Uretheral (Miller) Clear Urine Color Dark Yellow Dark Yellow Uretheral ([place]) Bright Yellow Urine Odor Normal Uretheral (Miller) Normal Stool Color Brown Stool Consistency Liquid # Voids 200 OBJ DATA Labs CBC & Chem 7: 04/28/21 05:44 04/28/21 05:44 Labs: Abnormal Lab Results 04/28/21 04/28/21 04/27/21 05:44 05:44 06:08 RBC Hgb 10.9 L Hct MCHC RDW 15.9 H Neut % (Auto) 80.8 H Lymph % (Auto) 9.7 L Lymph # (Auto) 0.73 L [place] # (Auto) Potassium 3.0 L BUN 6 L Creatinine 0.4 L Glucose Calcium 8.3 L GGT 42 H Total Protein 5.3 L 5.0 L Albumin 2.9 L 2.8 L 04/27/21 04/26/21 04/26/21 06:08 05:20 05:20 RBC 3.42 L 3.50 L Hgb 9.0 L 9.3 L Hct 30.3 L 29.5 L MCHC 29.7 L RDW 15.9 H 15.8 H Neut % (Auto) 81.1 H Lymph % (Auto) 13.3 L 8.0 L Lymph # (Auto) 0.90 L 0.78 L [place] # (Auto) 0.99 H Potassium 3.0 L BUN 7 L Creatinine Glucose 120 H Calcium 8.5 L GGT Total Protein 5.3 L Albumin 3.0 L Meds: Medications Benzocaine (Benzocaine 1 [place] Bottle) 3 spray TOPICAL 3-4XD PRN PRN Reason: Pain Stop: 05/03/21 12:34 Enoxaparin Sodium (Enoxaparin 30 Mg/0.3 Ml Syringe) 30 mg SQ BID [facility] Last Admin: 04/28/21 08:49 Dose: 30 mg Documented by: Magnesium Sulfate (Magnesium Sulfate) 2 gm in 50 mls @ 50 mls/hr IV UD PRN PRN Reason: Magnesium </= 1.6 Potassium Chloride 20 meq/ (Dextrose) 260 mls @ 130 mls/hr IV UD PRN PRN Reason: other Last Infusion: 04/24/21 11:38 Dose: Infused Documented by: Potassium Chloride 40 meq/ (Dextrose) 520 mls @ 130 mls/hr IV UD PRN PRN Reason: Potassium < 3 Last Infusion: 04/22/21 20:19 Dose: Infused Documented by: Acetaminophen (Ofirmev) 650 mg in 65 mls @ 130 mls/hr IV Q8H [facility]; Protocol Last Infusion: 04/28/21 15:00 Dose: Infused Documented by: Potassium Chloride 40 meq/ (Dextrose) 520 mls @ 130 mls/hr IV Q4H [facility] Stop: 04/28/21 23:14 Last Admin: 04/28/21 15:48 Dose: 130 mls/hr Documented by: Metoclopramide HCl (Metoclopramide 10 Mg/2 Ml Vial) 10 mg IV Q6HP PRN PRN Reason: Nausea And Vomiting Last Admin: 04/27/21 19:11 Dose: 10 mg Documented by: Morphine Sulfate (Morphine 2 Mg/Ml Vial) 2 mg IV Q4HP PRN; Protocol PRN Reason: Per Pain Protocol Last Admin: 04/25/21 12:52 Dose: 2 mg Documented by: Ondansetron HCl (Ondansetron 4 Mg/2 Ml Vial) 4 mg IV Q4HP PRN PRN Reason: Nausea And Vomiting Oxycodone HCl (Oxycodone Hcl 5 Mg Tablet) 5 mg PO Q4-6HP PRN; Protocol PRN Reason: Per Pain Protocol Pantoprazole Sodium (Pantoprazole 40 Mg Vial) 40 mg IV BIDAC [facility] Last Admin: 04/28/21 06:53 Dose: 40 mg Documented by: Potassium Chloride (Potassium Chloride 20 Meq Tablet) 40 meq PO UD PRN PRN Reason: Potssium is 3-3.5 Potassium Chloride (Potassium Chloride 20 Meq Tablet) 40 meq PO UD PRN PRN Reason: Potassium < 3 Promethazine HCl (Promethazine 25 Mg/Ml Vial) 12.5 mg IV Q6HP PRN PRN Reason: Nausea And Vomiting Simethicone (Simethicone 80 Mg Tab.Chew) 80 mg CHEWED QIDP PRN PRN Reason: Dyspepsia Last Admin: 04/27/21 19:12 Dose: 80 mg Documented by: Sodium Biphosphate/Sodium Phosphate (Fleets Adult Enema) 2 dose ND ONCE PRN PRN Reason: Bowel Prep Sodium Chloride (0.9 % Sodium Chloride 10 Ml Syringe) 10 ml IV Q8 [facility] Last Admin: 04/28/21 14:36 Dose: 10 ml Documented by: Throat Lozenges (Benzocaine/Menthol 1 Lozenge) 1 lozenge PO PRN PRN PRN Reason: Sore Throat Last Admin: 04/27/21 06:37 Dose: 1 lozenge Documented by: A/P Narrative A/P Narrative: Assessment: 80-year-old female initially admitted for GI bleed, EGD showed bleeding hemorrhoids erosions and hiatal hernia, colonoscopy showed a large mass at the hepatic flexure now status post right hemicolectomy. #Status post hemicolectomy for hepatic flexure mass #Resolved upper GI bleed secondary to Darrion's erosions #History of DVT Plan -Analgesics as needed. -Follow-up pathology. -Surgery following for management of drains, NG tube, diet. -Protonix IV twice daily. -Diet advanced to soft. -DVT prophylaxis: Lovenox -CODE STATUS: Full -Disposition: [facility]. Time Spent With Patient Time: Total time spent is greater than 50% in coordination of care (as documented) at patient's floor/unit and/or counseling patient: QUALITY VTE Deep Vein Thrombosis/Pulmonary Embolism Present on Admission: No
[2021-04-29] MEDS: ACETAMINOPHEN 650 MG/65 ML BAG IV SCH ×3 (05:55→22:40)
[2021-04-29] MEDS: 0.9 % SODIUM CHLORIDE 10 ML SYRINGE IV SCH ×3 (05:56→22:52)
[2021-04-29] MEDS: PANTOPRAZOLE 40 MG VIAL IV SCH ×2 (06:43→16:15)
[2021-04-29] MEDS: ENOXAPARIN 30 MG/0.3 ML SYRINGE SQ SCH ×2 (09:10→20:36)
[2021-04-29 11:27] LABS: ALT/SGPT 17 U/L (<40); AST/SGOT 29 U/L (<32); Albumin 2.7 gm/dL (3.2-5.2); Alkaline Phosphatase 120 U/L (39-117); Bilirubin,Direct < 0.2 mg/dL (0-0.3); Bilirubin,Total 0.4 mg/dL (0.1-1.0); Blood Urea Nitrogen 14 mg/dL (8-23); Calcium 8.7 mg/dL (8.6-10.4); Carbon Dioxide 25 mmol/L (22-30); Chloride 102 mmol/L (96-108); Globulin 2.7 gm/dL (2.2-3.7); Glomerular Filtration Rate 80; Glucose 104 mg/dL (70-105); Lactate Dehydrogenase 326 U/L (135-225); Phosphorous 2.8 mg/dL (2.5-4.5); Triglycerides 118 mg/dL (<150); Uric Acid 3.1 mg/dL (2.5-8.0)
--- NOTE | 2021-04-29 14:52 | General Surgery Progress Note ---
SUBJECTIVE Subjective Patient information: Note initiated : 04/29/21 at 2:48 pm Service Date, if different from initiated Date: [] Patient: Hector Chadwick 80 y/o F admitted on 04/18/21 for bloody emesis. Chief Complaint: [] Principal diagnosis: Postoperative extended right colectomy Interval history: Patient continues to do well. She has mild discomfort in the left lower quadrant but this is improving. She has had multiple bowel movements. She denies nausea and is tolerating soft diet. BMP and CBC are normal. Patient is clinically stable for discharge but cannot be transferred to SNF until Saturday. Constitutional Vitals: Vital Signs Temp Pulse Resp BP Pulse Ox 98.3 F 87 16 121/57 97 04/29/21 14:13 04/29/21 11:28 04/29/21 11:28 04/29/21 11:28 04/29/21 11:28 Period Temp Pulse Resp BP Sys/St Pulse Ox Last 24 Hr 96.9 F-98.3 F 73-92 16-20 116-131/55-68 93-97 Intake and Output 04/29/21 04/29/21 04/29/21 05:59 13:59 21:59 Intake Total 825 65 65 Output Total 1010 700 Balance -185 -635 65 Intake & Output: Intake & Output 04/29/21 04/29/21 04/29/21 05:59 13:59 21:59 Intake Total 825 65 65 Output Total 1010 700 Balance -185 -635 65 Intake: IV 585 65 65 Potassium Chloride 40 Meq In 520 Dextrose 5% in Water 500 ml @ 130 mls/hr IV Q4H [facility] Rx#: [id number] Oral 240 Output: Drainage 60 Right Lower VAHID Drain 60 Void Amount 700 Urine/Stool Mix 950 Other: Meal Dinner Breakfast Percent of Meal Consumed 100% 100% Feeding Ability Independent Urine Appearance Clear Urine Color Pale Urine Odor Normal Stool Size Moderate Stool Color Brown Brown Stool Consistency Liquid Liquid Watery # Bowel Movements 1 ENT ENT exam: Present mucous membranes moist, normal exam and normal external ear exam Additional comments: NG tube in place Neck Neck exam: Present full ROM and normal inspection; Absent tenderness Respiratory Respiratory exam: Present normal respiratory exam and CTAB; Absent rales, rhonchi and wheezes Cardiovascular Cardiovascular exam: Present normal rate and rhythm, RRR, +S1 and +S2; Absent gallop and JVD Extremities Exam Extremities exam: Present full ROM and normal inspection; Absent calf tenderness and pedal edema Neurological Exam Neurological exam: Present alert and oriented X3; Absent motor sensory deficit Psychiatric Psychiatric exam: Present normal affect and normal mood A/P Assessment and plan (1) Mass of hepatic flexure of colon: Status: Acute (2) Status post colectomy: Status: Acute Narrative A/P Narrative: Continue on present management Plan for discharge to SNF on Saturday Time Spent With Patient Time: Total time spent is greater than 50% in coordination of care (as documented) at patient's floor/unit and/or counseling patient:
--- NOTE | 2021-04-29 15:28 | Internal Med Progress Note ---
SUBJECTIVE Subjective Patient information: Note initiated : 04/29/21 at 3:27 pm Service Date, if different from initiated Date: [] Patient: Hector Chadwick a 80 y/o F admitted on 04/18/21 for bloody emesis. Chief Complaint: [] Principal diagnosis: Postoperative extended right colectomy Interval history: History of present illness: Ms. Chadwick is a 80 year old F Presents the ED with hematemesis. Patient has a history of DVT on Eliquis her old home medication does list ibuprofen but she says she does not take that. She woke up yesterday feeling fine and then in the afternoon she started having a little bit of an upset stomach and the pain worsened into the night and it was a sharp and burning pain nonradiating. She had an episode of nausea vomiting last night. She could not sleep very well because of the pain. This morning she had another episode nausea vomiting described as dark coffee- ground emesis. And then she had a large episode of diarrhea of dark stool. She was significantly lightheaded and when she got up to walk she almost passed out and could not walk very far because of weakness as well. Patient denies chest pain or shortness of breath In the ED she had a hemoglobin of 9 and it was 11 few weeks prior. Blood pressures have been in the 90s to low 100s she did have a systolic of 79 at one reading. She is also tachycardic 120s one-point Dr. Phipps was contacted to perform EGD. EGD performed found a small hiatal hernia and several Darrion lesions. Recommendations were for lifelong PPI. 04/19 Patient still feels quite weak but much better than when she came in. Did have some dark liquid stool last night likely residual. 04/20: Continued to have black stools. Denies nausea vomiting or hematemesis. H/H: 9.1/30.0-->8.0/26.9. c/o intermittent, crampy epigastric and RUQ abdominal pain, 11/21. c/o headache. 04/21: s/p repeat EGD by GI yesterday, no new/recurrent source of bleeding identified. H/H stable. Denies abdominal pain. Denies chest pain. Denies nausea vomiting hematemesis constipation or diarrhea. One episode of black stool overnight. 04/22: s/p colonoscopy on 04/21, could not advance the scope pass the tumor at hepatic flexure. General surgeon Dr. Wilkerson decided to proceed with tumor/bowel resection on . NPO for the time being. Serum potassium level 2.9. Denies any fever or chills. Denies any nausea or vomiting. Still have black stools. Denies any abdominal pain. 04/23: Hemoglobin 8.3-->8.2. Dr. Wilkerson decide to give 1 unit pRBC transfusion today as part of the pre-op measures. Denies any abdominal pain. Denies any nausea or vomiting. Denies any fever or chills. 04/24: H/H stable. 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 04/25: s/p right hemicolectomy with primary re-anastomosis by Dr. Wilkerson on 04/24. NG and VAHID drain placement. Afebrile overnight. Room air. c/o 3/10 diffused abdominal pain. c/o sore throat. Denies nausea vomiting. Denies fever chills or sweating. Denies SOB. On ice chips. 04/26: No major overnight events. Still on ice chips. No hematemesis or black or bloody stool. Denies abdominal pain. Denies nausea or vomiting. Denies fever or chills. c/o general body weakness. 04/27: No major events overnight, positive bowel sounds, waiting return of bowel function. 04/28: Had multiple bowel movements, diet advanced to soft. 04/29: Miller catheter and NG tube removed yesterday, tolerating diet, still has abdominal surgical drain per surgery. Physical exam Head: Atraumatic, normal inspection. Eyes: normal appearance, no scleral icterus. Neck: full ROM Respiratory: no respiratory distress. Cardiovascular: normal rate and rhythm, S1, S2. GI/Abdominal: surgical drain, soft, nontender, no guarding. Extremities: full range of motion, nontender. Neurological: CN II-XII intact, intact motor, intact sensation. Psychiatric: normal mood. Skin: warm, normal color Constitutional Vitals: Vital Signs Temp Pulse Resp BP Pulse Ox 98.3 F 87 16 121/57 97 04/29/21 14:13 04/29/21 11:28 04/29/21 11:28 04/29/21 11:28 04/29/21 11:28 Period Temp Pulse Resp BP Sys/St Pulse Ox Last 24 Hr 96.9 F-98.3 F 73-92 16-20 116-131/55-68 93-97 Intake and Output 04/29/21 04/29/21 04/29/21 05:59 13:59 21:59 Intake Total 825 65 65 Output Total 1010 700 Balance -185 -635 65 Intake & Output: Intake & Output 04/29/21 04/29/21 04/29/21 05:59 13:59 21:59 Intake Total 825 65 65 Output Total 1010 700 Balance -185 -635 65 Intake: IV 585 65 65 Potassium Chloride 40 Meq In 520 Dextrose 5% in Water 500 ml @ 130 mls/hr IV Q4H [facility] Rx#: [id number] Oral 240 Output: Drainage 60 Right Lower VAHID Drain 60 Void Amount 700 Urine/Stool Mix 950 Other: Meal Dinner Breakfast Percent of Meal Consumed 100% 100% Feeding Ability Independent Urine Appearance Clear Urine Color Pale Urine Odor Normal Stool Size Moderate Stool Color Brown Brown Stool Consistency Liquid Liquid Watery # Bowel Movements 1 OBJ DATA Labs CBC & Chem 7: 04/28/21 05:44 04/29/21 09:48 Labs: Abnormal Lab Results 04/29/21 04/28/21 04/28/21 09:48 05:44 05:44 RBC Hgb 10.9 L Hct MCHC RDW 15.9 H Neut % (Auto) 80.8 H Lymph % (Auto) 9.7 L Lymph # (Auto) 0.73 L Potassium 3.0 L BUN Creatinine Calcium GGT 59 H 42 H Alkaline Phosphatase 120 H Lactate Dehydrogenase 326 H Total Protein 5.4 L 5.3 L Albumin 2.7 L 2.9 L 04/27/21 04/27/21 06:08 06:08 RBC 3.42 L Hgb 9.0 L Hct 30.3 L MCHC 29.7 L RDW 15.9 H Neut % (Auto) Lymph % (Auto) 13.3 L Lymph # (Auto) 0.90 L Potassium BUN 6 L Creatinine 0.4 L Calcium 8.3 L GGT Alkaline Phosphatase Lactate Dehydrogenase Total Protein 5.0 L Albumin 2.8 L Meds: Medications Benzocaine (Benzocaine 1 [place] Bottle) 3 spray TOPICAL 3-4XD PRN PRN Reason: Pain Stop: 05/03/21 12:34 Enoxaparin Sodium (Enoxaparin 30 Mg/0.3 Ml Syringe) 30 mg SQ BID [facility] Last Admin: 04/29/21 09:10 Dose: 30 mg Documented by: Magnesium Sulfate (Magnesium Sulfate) 2 gm in 50 mls @ 50 mls/hr IV UD PRN PRN Reason: Magnesium </= 1.6 Potassium Chloride 20 meq/ (Dextrose) 260 mls @ 130 mls/hr IV UD PRN PRN Reason: other Last Infusion: 04/24/21 11:38 Dose: Infused Documented by: Potassium Chloride 40 meq/ (Dextrose) 520 mls @ 130 mls/hr IV UD PRN PRN Reason: Potassium < 3 Last Infusion: 04/22/21 20:19 Dose: Infused Documented by: Acetaminophen (Ofirmev) 650 mg in 65 mls @ 130 mls/hr IV Q8H [facility]; Protocol Last Infusion: 04/29/21 14:15 Dose: Infused Documented by: Metoclopramide HCl (Metoclopramide 10 Mg/2 Ml Vial) 10 mg IV Q6HP PRN PRN Reason: Nausea And Vomiting Last Admin: 04/27/21 19:11 Dose: 10 mg Documented by: Morphine Sulfate (Morphine 2 Mg/Ml Vial) 2 mg IV Q4HP PRN; Protocol PRN Reason: Per Pain Protocol Last Admin: 04/25/21 12:52 Dose: 2 mg Documented by: Ondansetron HCl (Ondansetron 4 Mg/2 Ml Vial) 4 mg IV Q4HP PRN PRN Reason: Nausea And Vomiting Oxycodone HCl (Oxycodone Hcl 5 Mg Tablet) 5 mg PO Q4-6HP PRN; Protocol PRN Reason: Per Pain Protocol Pantoprazole Sodium (Pantoprazole 40 Mg Vial) [facility] Last Admin: 04/29/21 06:43 Dose: 40 mg Documented by: Potassium Chloride (Potassium Chloride 20 Meq Tablet) 40 meq PO UD PRN PRN Reason: Potssium is 3-3.5 Potassium Chloride (Potassium Chloride 20 Meq Tablet) 40 meq PO UD PRN PRN Reason: Potassium < 3 Promethazine HCl (Promethazine 25 Mg/Ml Vial) 12.5 mg IV Q6HP PRN PRN Reason: Nausea And Vomiting Simethicone (Simethicone 80 Mg Tab.Chew) 80 mg CHEWED QIDP PRN PRN Reason: Dyspepsia Last Admin: 04/27/21 19:12 Dose: 80 mg Documented by: Sodium Biphosphate/Sodium Phosphate (Fleets Adult Enema) 2 dose [place] ONCE PRN PRN Reason: Bowel Prep Sodium Chloride (0.9 % Sodium Chloride 10 Ml Syringe) 10 ml IV Q8 [facility] Last Admin: 04/29/21 13:41 Dose: 10 ml Documented by: Throat Lozenges (Benzocaine/Menthol 1 Lozenge) 1 lozenge PO PRN PRN PRN Reason: Sore Throat Last Admin: 04/27/21 06:37 Dose: 1 lozenge Documented by: A/P Narrative A/P Narrative: Assessment: 80-year-old female initially admitted for GI bleed, EGD showed bleeding hemorrhoids erosions and hiatal hernia, colonoscopy showed a large mass at the hepatic flexure now status post right hemicolectomy. #Status post hemicolectomy for hepatic flexure mass #Resolved upper GI bleed secondary to Darrion's erosions #History of DVT Plan -Analgesics as needed. -Follow-up pathology. -Surgery following for management of drains diet. -Protonix IV twice daily. -Diet advanced to soft. -DVT prophylaxis: Lovenox -CODE STATUS: Full -Disposition: Likely residential facility. Time Spent With Patient Time: Total time spent is greater than 50% in coordination of care (as documented) at patient's floor/unit and/or counseling patient: QUALITY VTE Deep Vein Thrombosis/Pulmonary Embolism Present on Admission: No
[2021-04-30] MEDS: ACETAMINOPHEN 650 MG/65 ML BAG IV SCH ×3 (06:13→21:24)
[2021-04-30] MEDS: 0.9 % SODIUM CHLORIDE 10 ML SYRINGE IV SCH ×3 (06:13→21:25)
[2021-04-30] MEDS: PANTOPRAZOLE 40 MG VIAL IV SCH (06:33)
[2021-04-30] MEDS: ENOXAPARIN 30 MG/0.3 ML SYRINGE SQ SCH ×2 (10:05→21:25)
--- NOTE | 2021-04-30 13:52 | Internal Med Progress Note ---
SUBJECTIVE Subjective Patient information: Note initiated : 04/30/21 at 1:50 pm Service Date, if different from initiated Date: [] Patient: Hector Chadwick a 80 y/o F admitted on 04/18/21 for bloody emesis. Chief Complaint: [] Principal diagnosis: Postoperative extended right colectomy Interval history: History of present illness: Ms. Chadwick is a 80 year old F Presents the ED with hematemesis. Patient has a history of DVT on Eliquis her old home medication does list ibuprofen but she says she does not take that. She woke up yesterday feeling fine and then in the afternoon she started having a little bit of an upset stomach and the pain worsened into the night and it was a sharp and burning pain nonradiating. She had an episode of nausea vomiting last night. She could not sleep very well because of the pain. This morning she had another episode nausea vomiting described as dark coffee- ground emesis. And then she had a large episode of diarrhea of dark stool. She was significantly lightheaded and when she got up to walk she almost passed out and could not walk very far because of weakness as well. Patient denies chest pain or shortness of breath In the ED she had a hemoglobin of 9 and it was 11 few weeks prior. Blood pressures have been in the 90s to low 100s she did have a systolic of 79 at one reading. She is also tachycardic 120s one-point Dr. Phipps was contacted to perform EGD. EGD performed found a small hiatal hernia and several Darrion lesions. Recommendations were for lifelong PPI. 04/19 Patient still feels quite weak but much better than when she came in. Did have some dark liquid stool last night likely residual. 04/20: Continued to have black stools. Denies nausea vomiting or hematemesis. H/H: 9.1/30.0-->8.0/26.9. c/o intermittent, crampy epigastric and RUQ abdominal pain, 11/21. c/o headache. 04/21: s/p repeat EGD by GI yesterday, no new/recurrent source of bleeding identified. H/H stable. Denies abdominal pain. Denies chest pain. Denies nausea vomiting hematemesis constipation or diarrhea. One episode of black stool overnight. 04/22: s/p colonoscopy on 04/21, could not advance the scope pass the tumor at hepatic flexure. General surgeon Dr. Wilkerson decided to proceed with tumor/bowel resection on . NPO for the time being. Serum potassium level 2.9. Denies any fever or chills. Denies any nausea or vomiting. Still have black stools. Denies any abdominal pain. 04/23: Hemoglobin 8.3-->8.2. Dr. Wilkerson decide to give 1 unit pRBC transfusion today as part of the pre-op measures. Denies any abdominal pain. Denies any nausea or vomiting. Denies any fever or chills. 04/24: H/H stable. 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 04/25: s/p right hemicolectomy with primary re-anastomosis by Dr. Wilkerson on 04/24. NG and VAHID drain placement. Afebrile overnight. Room air. c/o 3/10 diffused abdominal pain. c/o sore throat. Denies nausea vomiting. Denies fever chills or sweating. Denies SOB. On ice chips. 04/26: No major overnight events. Still on ice chips. No hematemesis or black or bloody stool. Denies abdominal pain. Denies nausea or vomiting. Denies fever or chills. c/o general body weakness. 04/27: No major events overnight, positive bowel sounds, waiting return of bowel function. 04/28: Had multiple bowel movements, diet advanced to soft. 04/29: Miller catheter and NG tube removed yesterday, tolerating diet, still has abdominal surgical drain per surgery. 04/30: Independent in her room, eating well, good bowel movements, progressing towards discharge. Physical exam Head: Atraumatic, normal inspection. Eyes: normal appearance, no scleral icterus. Neck: full ROM Respiratory: no respiratory distress. Cardiovascular: normal rate and rhythm, S1, S2. GI/Abdominal: surgical drain, soft, nontender, no guarding. Extremities: full range of motion, nontender. Neurological: CN II-XII intact, intact motor, intact sensation. Psychiatric: normal mood. Skin: warm, normal color Constitutional Vitals: Vital Signs Temp Pulse Resp BP Pulse Ox 97.5 F 88 18 122/63 94 04/30/21 13:11 04/30/21 11:35 04/30/21 11:35 04/30/21 11:35 04/30/21 11:35 Period Temp Pulse Resp BP Sys/St Pulse Ox Last 24 Hr 97 F-98.4 F 75-88 16-18 115-123/56-63 93-96 Intake and Output 04/29/21 04/30/21 04/30/21 21:59 05:59 13:59 Intake Total 65 465 Output Total 70 850 200 Balance -5 -850 265 Weight 83.036 kg Intake & Output: Intake & Output 04/29/21 04/30/21 04/30/21 21:59 05:59 13:59 Intake Total 65 465 Output Total 70 850 200 Balance -5 -850 265 Weight 83.036 kg Intake: IV 65 65 Oral 400 Output: Drainage 70 Right Lower VAHID Drain 70 Void Amount 850 200 Other: Meal Lunch Percent of Meal Consumed 100% Feeding Ability Independent Urine Appearance Clear Clear Urine Color Straw Bright Yellow Urine Odor Normal Stool Size Moderate Moderate Stool Color Brown Brown Stool Consistency Loose Soft Loose # Voids 1 # Bowel Movements 1 1 OBJ DATA Labs CBC & Chem 7: 04/28/21 05:44 04/29/21 09:48 Labs: Abnormal Lab Results 04/29/21 04/28/21 04/28/21 09:48 05:44 05:44 Hgb 10.9 L RDW 15.9 H Neut % (Auto) 80.8 H Lymph % (Auto) 9.7 L Lymph # (Auto) 0.73 L Potassium 3.0 L GGT 59 H 42 H Alkaline Phosphatase 120 H Lactate Dehydrogenase 326 H Total Protein 5.4 L 5.3 L Albumin 2.7 L 2.9 L Meds: Medications Benzocaine (Benzocaine 1 [place] Bottle) 3 spray TOPICAL 3-4XD PRN PRN Reason: Pain Stop: 05/03/21 12:34 Enoxaparin Sodium (Enoxaparin 30 Mg/0.3 Ml Syringe) 30 mg SQ BID [facility] Last Admin: 04/30/21 10:05 Dose: 30 mg Documented by: Magnesium Sulfate (Magnesium Sulfate) 2 gm in 50 mls @ 50 mls/hr IV UD PRN PRN Reason: Magnesium </= 1.6 Potassium Chloride 20 meq/ (Dextrose) 260 mls @ 130 mls/hr IV UD PRN PRN Reason: other Last Infusion: 04/24/21 11:38 Dose: Infused Documented by: Potassium Chloride 40 meq/ (Dextrose) 520 mls @ 130 mls/hr IV UD PRN PRN Reason: Potassium < 3 Last Infusion: 04/22/21 20:19 Dose: Infused Documented by: Acetaminophen (Ofirmev) 650 mg in 65 mls @ 130 mls/hr IV Q8H [facility]; Protocol Last Admin: 04/30/21 13:11 Dose: 130 mls/hr Documented by: Metoclopramide HCl (Metoclopramide 10 Mg/2 Ml Vial) 10 mg IV Q6HP PRN PRN Reason: Nausea And Vomiting Last Admin: 04/27/21 19:11 Dose: 10 mg Documented by: Morphine Sulfate (Morphine 2 Mg/Ml Vial) 2 mg IV Q4HP PRN; Protocol PRN Reason: Per Pain Protocol Last Admin: 04/25/21 12:52 Dose: 2 mg Documented by: Ondansetron HCl (Ondansetron 4 Mg/2 Ml Vial) 4 mg IV Q4HP PRN PRN Reason: Nausea And Vomiting Oxycodone HCl (Oxycodone Hcl 5 Mg Tablet) 5 mg PO Q4-6HP PRN; Protocol PRN Reason: Per Pain Protocol Last Admin: 04/29/21 20:35 Dose: 5 mg Documented by: Pantoprazole Sodium (Pantoprazole 40 Mg Vial) 40 mg IV BIDAC [facility] Last Admin: 04/30/21 06:33 Dose: 40 mg Documented by: Potassium Chloride (Potassium Chloride 20 Meq Tablet) 40 meq PO UD PRN PRN Reason: Potssium is 3-3.5 Potassium Chloride (Potassium Chloride 20 Meq Tablet) 40 meq PO UD PRN PRN Reason: Potassium < 3 Promethazine HCl (Promethazine 25 Mg/Ml Vial) 12.5 mg IV Q6HP PRN PRN Reason: Nausea And Vomiting Simethicone (Simethicone 80 Mg Tab.Chew) 80 mg CHEWED QIDP PRN PRN Reason: Dyspepsia Last Admin: 04/27/21 19:12 Dose: 80 mg Documented by: Sodium Biphosphate/Sodium Phosphate (Fleets Adult Enema) 2 dose [place] ONCE PRN PRN Reason: Bowel Prep Sodium Chloride (0.9 % Sodium Chloride 10 Ml Syringe) 10 ml IV Q8 [facility] Last Admin: 04/30/21 06:13 Dose: 10 ml Documented by: Throat Lozenges (Benzocaine/Menthol 1 Lozenge) 1 lozenge PO PRN PRN PRN Reason: Sore Throat Last Admin: 04/27/21 06:37 Dose: 1 lozenge Documented by: A/P Narrative A/P Narrative: Assessment: 80-year-old female initially admitted for GI bleed, EGD showed bleeding hemorrhoids erosions and hiatal hernia, colonoscopy showed a large mass at the hepatic flexure now status post right hemicolectomy. #Status post hemicolectomy for hepatic flexure mass #Resolved upper GI bleed secondary to Darrion's erosions #History of DVT Plan -Analgesics as needed. -Follow-up pathology. -Surgery following. -Protonix PO twice daily. -Diet per surgery. -DVT prophylaxis: Lovenox -CODE STATUS: Full -Disposition: Likely detention facility. Time Spent With Patient Time: Total time spent is greater than 50% in coordination of care (as documented) at patient's floor/unit and/or counseling patient: QUALITY VTE Deep Vein Thrombosis/Pulmonary Embolism Present on Admission: No
[2021-04-30] MEDS: PANTOPRAZOLE 40 MG PACKET PO SCH (16:21)
[2021-05-01] MEDS: 0.9 % SODIUM CHLORIDE 10 ML SYRINGE IV SCH (05:58)
[2021-05-01] MEDS: ACETAMINOPHEN 650 MG/65 ML BAG IV SCH (05:59)
[2021-05-01 08:05] LABS: Blood Urea Nitrogen 18 mg/dL (8-23); Calcium 8.6 mg/dL (8.6-10.4); Carbon Dioxide 23 mmol/L (22-30); Chloride 103 mmol/L (96-108); Glomerular Filtration Rate 84; Glucose 95 mg/dL (70-105)
[2021-05-01] MEDS: PANTOPRAZOLE 40 MG PACKET PO SCH (08:17)
[2021-05-01] MEDS: ENOXAPARIN 30 MG/0.3 ML SYRINGE SQ SCH (08:19)
--- NOTE | 2021-05-01 09:49 | Surgical Pathology Report ---
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 -- TUMOR EXTENT: INVADES OMENTUM. -- LYMPHOVASCULAR INVASION: NOT IDENTIFIED. -- PERINEURAL INVASION: NOT IDENTIFIED. -- SURGICAL MARGINS: FREE OF TUMOR, CARCINOMA IS 2.5 cm FROM THE DISTAL (CLOSEST) MARGIN. -- LYMPH NODES: NO METASTATIC CARCINOMA IDENTIFIED IN THIRTY-TWO LYMPH NODES (0/32). -- PATHOLOGIC STAGE CLASSIFICATION: pT4b N0. --- BACKGROUND COLONIC MUCOSA: TUBULAR ADENOMA. -- LIPOMATOUS POLYP. --- TERMINAL ILEUM: SEROSAL ADHESIONS. -- NO MALIGNANCY IDENTIFIED. (RLF:sln) SUMMARY CANCER DATA: Procedure: Right hemicolectomy. Tumor Site: Hepatic flexure. Histologic Type: Adenocarcinoma, with focal mucinous differentiation. Histologic Grade: Grade 3, moderately to poorly differentiated. Tumor Size: 7.5 x 6.5 x 6 cm. Tumor Extent: Invades omentum. Macroscopic Tumor Perforation: Not identified. Lymphovascular Invasion: Not identified. Perineural Invasion: Not identified. Margins: All margins negative for invasive carcinoma. Carcinoma is 2.5 cm from the distal margin, 4 cm from the mesenteric margin and greater than 50 cm from the proximal margin. Regional Lymph Node Status: All regional lymph nodes negative for tumor. Number of lymph nodes examined: 32. Tumor Deposits: Not identified. Pathologic Stage Classification: pT4b N0. Gross Description Received in formalin labeled right colon segment mass, is a right hemicolectomy specimen consisting of a portion of terminal ileum attached to cecum and ascending colon. The appendix is absent. The segment of cecum and ascending colon is 18.5 cm long and up to 5.5 cm in diameter. The segment of small intestine is 36.5 cm long and up to 3 cm in diameter. Located 3.5 cm from the distal margin is a 7.5 x 6.5 x 6 cm prajapati-white firm mass. The serosal surface overlying the mass is prajapati-white and hard. Adherent to and embedded in the prajapati-white hard serosal tissue is a 19 x 9.5 x 1.2 cm portion of omentum. The serosal surface in this region is inked black. The remaining serosa has a few prajapati white adhesions. Scattered adhesions are also seen on the serosal surface of the segment of small intestine. The nearest mesenteric margin is 4 cm from the mass. The specimen is opened along its length to reveal a minimal amount of yellow-brown, muddy fecal luminal material. The previously described mass is a circumferential, prajapati-white and centrally necrotic. The mass is 2.5 cm from the nearest distal stapled margin and greater than 50 cm from the nearest proximal margin. The mucosa distal and proximal to the mass has the usual plicated pattern. A 0.3 cm in greatest dimension prajapati-pink polyp is located 4 cm proximal to the mass and the ileocecal valve has a submucosal 2.5 x 2 x 1.9 cm nodule with a prajapati-yellow fatty appearance. The colonic wall away from the mass is on average 0.5 cm thick. The mass invades through the wall and is immediately adjacent to the serosal surface. The small intestinal mucosa is slightly edematous without associated polyps or mass lesions. Multiple candidate lymph nodes are identified within the mesentery ranging in size from 0.2 to 1.1 cm. Geological Engineer sections are submitted as follows: A1 - proximal and distal margins; A2 A4 - composite cross section of central mass with possible serosal and omental invasion; A5-A6 - additional mass with possible omental invasion; A7 - additional mass to serosa; A8 - random colon and colon polyp distal to mass; A9 - submucosal nodule at ileocecal valve; A10 - random terminal ileum with serosal adhesions; A11 - random omentum; A12 - nearest mesenteric margin to mass; A13 - two candidate lymph nodes, each bisected, one inked blue, one inked black; A14 - six intact candidate lymph nodes; A15 - six intact candidate lymph nodes; A16 - five intact candidate lymph nodes; A17 - three candidate lymph nodes, each bisected, one inked blue, one inked black and one not inked; A18 - six intact candidate lymph nodes; A19 - six intact candidate lymph nodes. (DMT:sln) Electronically Signed Yazmin Gates MD, FCAP Electronically Signed 05/01/2021 09:48
--- NOTE | 2021-05-01 10:53 | Discharge Summary ---
Discharge Provider Provider Patient information: Note initiated : 05/01/21 at 10:37 am Service Date, if different from initiated Date: [] Patient: Hector Chadwick 80 y/o F admitted on 04/18/21 for bloody emesis. Chief Complaint: [] Date of admission: 04/18/21 14:39 Discharge date: 05/01/21 Primary care physician: Adrian Celestin MD Consults: 04/18/21 Consult to Physician [CONS] Stat Comment: Consulting Provider: Prabhakar Gilbert Reason For Exam: Physician to Consult Consult to Physician [CONS] Stat Comment: Consulting Provider: Brendon Brandon Reason For Exam: Physician to Consult 04/26/21 17:16 Consult to Physician [CONS] Routine Comment: Consulting Provider: Leydi Benoit Reason For Exam: Physician to Consult Discharge Meds Discharge Medications Home Medications apixaban 5 mg tablet 5 mg PO BID #60 tab 03/09/21 [Rx Confirmed 04/18/21 Last Taken 04/17/21 5mg yesterday @ HS] acetaminophen [Tylenol Extra Strength] 500 mg PO Q6H PRN #30 tab 05/01/21 [Rx Last Taken Unknown] oxycodone 5 mg PO Q6H PRN #10 tab 05/01/21 [Rx Last Taken Unknown] pantoprazole 40 mg PO BIDAC 28 Days #60 ea 05/01/21 [Rx Last Taken Unknown] COURSE Hospital Course Hospital course: Ms. Chadwick is a 80 year old F Presents the ED with hematemesis. Patient has a history of DVT on Eliquis her old home medication does list ibuprofen but she says she does not take that. She woke up yesterday feeling fine and then in the afternoon she started having a little bit of an upset stomach and the pain worsened into the night and it was a sharp and burning pain nonradiating. She had an episode of nausea vomiting last night. She could not sleep very well because of the pain. This morning she had another episode nausea vomiting described as dark coffee- ground emesis. And then she had a large episode of diarrhea of dark stool. She was significantly lightheaded and when she got up to walk she almost passed out and could not walk very far because of weakness as well. Patient denies chest pain or shortness of breath In the ED she had a hemoglobin of 9 and it was 11 few weeks prior. Blood pressures have been in the 90s to low 100s she did have a systolic of 79 at one reading. She is also tachycardic 120s one-point Dr. Phipps was contacted to perform EGD. EGD performed found a small hiatal hernia and several Darrion lesions. Recommendations were for lifelong PPI. 04/19 Patient still feels quite weak but much better than when she came in. Did have some dark liquid stool last night likely residual. 04/20: Continued to have black stools. Denies nausea vomiting or hematemesis. H/H: 9.1/30.0-->8.0/26.9. c/o intermittent, crampy epigastric and RUQ abdominal pain, 11/21. c/o headache. 04/21: s/p repeat EGD by GI yesterday, no new/recurrent source of bleeding identified. H/H stable. Denies abdominal pain. Denies chest pain. Denies nausea vomiting hematemesis constipation or diarrhea. One episode of black stool overnight. 04/22: s/p colonoscopy on 04/21, could not advance the scope pass the tumor at hepatic flexure. General surgeon Dr. Wilkerson decided to proceed with tumor/bowel resection on . NPO for the time being. Serum potassium level 2.9. Denies any fever or chills. Denies any nausea or vomiting. Still have black stools. Denies any abdominal pain. 04/23: Hemoglobin 8.3-->8.2. Dr. Wilkerson decide to give 1 unit pRBC transfusion today as part of the pre-op measures. Denies any abdominal pain. Denies any nausea or vomiting. Denies any fever or chills. 04/24: H/H stable. Surgery by Dr. Wilkerson for planned colonic tumor resection this morning. 04/25: s/p right hemicolectomy with primary re-anastomosis by Dr. Wilkerson on 04/24. NG and VAHID drain placement. Afebrile overnight. Room air. c/o 3/10 diffused abdominal pain. c/o sore throat. Denies nausea vomiting. Denies fever chills or sweating. Denies SOB. On ice chips. Pathology of colon mass resulted-biopsy results show granulation tissue, no carcinoma identified by pancytokeratin immunohistochemical stain. 04/26: No major overnight events. Still on ice chips. No hematemesis or black or bloody stool. Denies abdominal pain. Denies nausea or vomiting. Denies fever or chills. c/o general body weakness. 04/27: No major events overnight, positive bowel sounds, waiting return of bowel function. 04/28: Had multiple bowel movements, diet advanced to soft. 04/29: Miller catheter and NG tube removed yesterday, tolerating diet, still has abdominal surgical drain per surgery. 04/30: Independent in her room, eating well, good bowel movements, progressing towards discharge. 05/01: Discharged to SNF with abdominal drain. Discharged on Protonix BID for 28 more days then daily indefinably per GI recommendations. Resumed Eliquis at discharge for recent DVT in January 2021. Follow up with GI, general surgery and PCP. Physical exam Head: Atraumatic, normal inspection. Eyes: normal appearance, no scleral icterus. Neck: full ROM Respiratory: no respiratory distress. Cardiovascular: normal rate and rhythm, S1, S2. GI/Abdominal: surgical drain, soft, nontender, no guarding. Extremities: full range of motion, nontender. Neurological: CN II-XII intact, intact motor, intact sensation. Psychiatric: normal mood. 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 Time Spent with Patient Time attestation: Total time spent providing and/or coordinating discharge services: EXAM Constitutional Vitals: Temp Pulse Resp BP Pulse Ox 97.5 F 76 16 121/55 95 05/01/21 02:59 05/01/21 02:59 05/01/21 02:59 05/01/21 02:59 05/01/21 02:59 Discharge Data Data Completed and Pending Labs on day of discharge: Labs from last 24 hours 05/01/21 06:56 Sodium 135 Potassium 3.8 Chloride 103 Carbon Dioxide 23 Anion Gap 9.0 BUN 18 Creatinine 0.6 GFR Calculation 84 Glucose 95 Calcium 8.6 Discharge Plan Patient/Caregiver Discharge Instructions Activity: increase activity as tolerated Diet: Regular Diet Instructions: Peptic Ulcer (GEN), Hiatal Hernia (GEN), Gastrointestinal Bleeding (GEN), Anemia (GEN), Colonoscopy (GEN), Upper Endoscopy (GEN) Prescriptions: New oxycodone 5 mg Tablet 5 mg PO Q6H PRN (Reason: Per Pain Protocol) Qty: 10 RF: 0 pantoprazole [address] For Susp In Packet 40 mg PO BIDAC 28 Days Qty: 60 RF: 2 acetaminophen [Tylenol Extra Strength] 500 mg tablet 500 mg PO Q6H PRN (Reason: pain) Qty: 30 RF: 0 Continued apixaban 5 mg tablet 5 mg PO BID Qty: 60 RF: 2 Follow Up Plan Follow up with: Brendon Brandon MD [Physician] - 04/28/21 8:45 am Leydi Benoit MD [Physician] - 05/05/21 Adrian Celestin MD [Primary Care Provider] - 05/01/21 10:45 am (Please arrive at 10:30 This appointment will be with Dr. Dunham as Dr. Celestin is not available) Patient Disposition: Xfer SNF Prognosis: Fair Overall status at discharge: patient is progressing back to baseline Discharge Orders: Discharge Order (Routine); Ordered 05/01/21 Ordered By: Fabrice Guerrier QUALITY VTE Deep Vein Thrombosis/Pulmonary Embolism Present on Admission: No
== END 2021-05-01 13:10 | DRG 329 ==
LOC: ED 11:14 → ICU 14:39 → MEDSUR 04-21 18:14
PROVIDERS: ADMIT Internal Medicine; ATTEND Internal Medicine